=== PATIENT | male | born 1945 | race Caucasian/White ===

== ENCOUNTER → 2019-03-18 16:17 | Outpatient (CLI) | payer MEDICARE, SELFPAY ==
[2019-03-18 15:08] VITALS: BMI 24.7
[2019-03-18 17:10] LABS: Absolute Lymphocyte Count 1.72 X10^3/uL (0.83-4.51); Absolute Neutrophil Count 3.6 X10^3/uL (2.0-7.7); Basophil# 0.05 X10^3/uL; Basophil% 0.8 % (0-1); Eosinophil# 0.15 X10^3/uL; Eosinophils% 2.5 % (0-5); Hematocrit 46.1 % (40-54); Hemoglobin 15.2 g/dL (13.0-16.5); Lymphocyte # 1.72 X10^3/ul (4.0); Lymphocyte % 28.2 % (19-41); Mean Corpuscular Hgb 30.4 pg (27.0-32.0); Mean Corpuscular Volume 92.2 fL (80-94); Mean Platelet Vol. 8.5 fl (6.2-12.0); Monocyte# 0.52 X10^3/uL; Monocyte% 8.5 % (0-10); NRBC Flagged by Analyzer 0 % (0-5); Neutrophil # 3.62 X10^3/uL (2.7-7.7); Neutrophil % 59.2 % (47-70); Platelet Count 345 K/mm3 (150-450); RBC Distribution Width CV 13.2 % (11.6-14.6); RBC Distribution Width SD 45.2 fl (35.1-43.9); White Blood Count 6.1 K/mm3 (4.4-11.0)
[2019-03-18 17:51] LABS: Anion Gap 7 (5-15); BUN 7 mg/dL (7-18); BUN/Creat Ratio 9.2 RATIO (10-20); Chloride 101 mmol/L (98-107); Creatinine, Serum 0.76 mg/dL (0.70-1.30); EST Glomerular Filtration Rate 107 mL/min (>60); Est Glom Filt Rate - Afr Amer 129 mL/min (>60); Glucose 63 mg/dL (74-106); Potassium 3.5 mmol/L (3.5-5.1); Sodium Level 136 mmol/L (136-145); Thyroid Stim Hormone (TSH) 3.28 uIU/mL (0.358-3.74)
== END ==
PROVIDERS: Family Provider Internal Medicine; PCP Internal Medicine; Referring Provider Internal Medicine Cardiovascular Disease; Visit Provider Internal Medicine Cardiovascular Disease
DX: Z01.810 Encounter for preprocedural cardiovascular examination (principal); R06.00 Dyspnea, unspecified
CPT/HCPCS: 36415; 80048; 84443; 85025

== ENCOUNTER → 2019-03-26 06:03 | Outpatient (CLI) | payer MEDICARE, SELFPAY ==
[2019-03-18 15:08] VITALS: BMI 24.7
--- NOTE | 2019-03-26 06:07 | ECHOD_ITS ---
Reason For Study: CAD/ASHD Procedure This was a 2D Doppler, Color Flow transthoracic echocardiogram. Contrast injection was performed. Exam performed in department. Left Ventricle Normal LV size. Left ventricular systolic function is normal. The estimated ejection fraction is 60 %. Stage 1 diastolic dysfunction. No regional wall motion abnormalities noted. Right Ventricle Normal RV size. Normal systolic function. Atria Normal left atrium. Normal right atrium. Bubble contrast study negative for right to left interatrial shunt. Mitral Valve Systolic anterior motion of the mitral valve. Bileaflet diffuse mitral valve thickening. Tricuspid Valve Normal tricuspid valve. Aortic Valve Normal aortic valve. Mild (1+) aortic valve insufficiency. Pulmonic Valve Normal pulmonic valve. Great Vessels Normal aortic root. The pulmonary artery is normal size. Normal inferior vena cava. Pericardium/Pleural No pericardial effusion. Medication 22 gauge I.V. with prn adaptor inserted into left arm. Performed a rapid injection of agitated mix of 9 cc saline and 1cc air to assess for atrial septal defect. MMode/2D Measurements & Calculations LVIDd: 3.6 cm IVSd: 1.0 cm LA dimension: 3.1 cm LVIDs: 2.3 cm LVPWd: 1.1 cm RVDd: 2.9 cm FS: 37.1 % LAV(MOD-bp): 39.9 ml LA A4 area: 14.2 cm2 RA A4 area: 11.8 cm2 LAV(MOD-bp) Indexed: 25.9 ml/m2 LAV(MOD-sp2): 37.2 ml LAV(MOD-sp4): 36.1 ml Time Measurements MV dec time: 0.24 sec Doppler Measurements & Calculations MV E max didier: 107.8 cm/sec Lat Peak E' Didier: 6.3 cm/sec Med Peak E' Didier: 6.4 cm/sec MV A max didier: 108.4 cm/sec E/E' lat: 17.1 E/E' med: 16.9 MV E/A: 1.00 MV V2 max: 127.1 cm/sec MV P1/2t max didier: 127.1 cm/sec Ao V2 max: 115.4 cm/sec MV max P.5 mmHg MV P1/2t: 48.5 msec Ao max P.3 mmHg MV V2 mean: 60.0 cm/sec MV dec slope: 767.1 cm/sec2 Ao V2 mean: 68.1 cm/sec MV mean P.8 mmHg Ao mean P.2 mmHg MV V2 VTI: 42.7 cm MVA(P1/2t): 4.5 cm2 Ao V2 VTI: 27.0 cm AI max didier: 372.5 cm/sec LV V1 max: 99.2 cm/sec PA V2 max: 90.6 cm/sec AI max P.5 mmHg LV V1 max P.9 mmHg AI dec slope: 193.6 cm/sec2 LV V1 mean P.6 mmHg AI P1/2t: 563.5 msec LV V1 mean: 56.2 cm/sec LV V1 VTI: 22.2 cm Interpretation Summary Normal LV size. Left ventricular systolic function is normal. The estimated ejection fraction is 60 %. Stage 1 diastolic dysfunction. Bubble contrast study negative for right to left interatrial shunt. The global longitudinal strain = -21.4 % (normal). Ordering Physician: Jeremias Howard Referring Physician: Pedro Jaime M.D. Performed By: Jeromy Washington RCS
--- NOTE | 2019-03-26 08:45 | STRESSREP ---
Stress Test Report Pharmacologic myocardial perfusion stress test. 74-year-old man with a history of abnormal EKG preoperative evaluation. Medications Ventolin Motrin trazodone. Stress protocol. Resting EKG demonstrates sinus bradycardia with a rate of 53 bpm normal intervals are noted resting blood pressures 126/60 mmHg. 0.4 mg of regadenoson was infused per usual protocol continuous EKG monitoring was performed. The maximum heart rate was 73 bpm which was 50% of maximum predicted heart rate and maximum workload was 1 metabolic equivalent. At rest there were no ST or T wave changes noted suggest abnormal flow reserve at peak infusion nonspecific ST-T wave changes were noted. The resting blood pressure 120/60 meters of mercury and remained the same. Myocardial perfusion protocol. 11.4 mCi of technetium 99m sestamibi was injected stress images were obtained stress and rest images were reconstructed and compared in the short axis vertical and horizontal long axis. At peak infusion 32.7 mCi of technetium 99m sestamibi was injected. Perfusion SPECT analysis: Review of the stress images demonstrate normal uptake of tracer noted in all areas of the myocardium there is some inferior wall attenuation and bowel attenuation noted. The septum anterior wall lateral wall appeared to be well perfused. No obvious areas of reversibility are noted suggest ischemia Gated SPECT analysis: The gated ejection fraction is 83%. Conclusion: Normal pharmacologic myocardial perfusion stress test. 2. 2.preserved ejection fraction.
== END ==
PROVIDERS: Family Provider Internal Medicine; PCP Internal Medicine; Referring Provider Internal Medicine Cardiovascular Disease; Visit Provider Internal Medicine Cardiovascular Disease
DX: Z01.810 Encounter for preprocedural cardiovascular examination (principal); I25.10 Atherosclerotic heart disease of native coronary artery without angina pectoris
CPT/HCPCS: 78452; 93017; 93306; A9500; A4216; J2785

== ENCOUNTER 2019-04-20 12:01 | Day surgery (SDC) | payer MEDICARE, SELFPAY ==
[2019-03-18 15:08] VITALS: BMI 24.7
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
[2019-04-20] VITALS (8 sets, daily range): BP systolic 127–140; BP diastolic 47–62; PULSE 44–53; RESP 17–18; TEMP 36.1–37.1; O2SAT 97–100; BMI 19.6
[2019-04-20] MEDS: Lactated Ringers 1,000 ML 75 ML IV (12:46)
--- NOTE | 2019-04-20 14:15 | MASS_PTH ---
PATIENT: LORI DUMONT LOC[place] [facility] [place][id number] AGE/SX: 74/M ROOM: RE04/20/[address]: Dr. Li Olivo MD : 1945 BED: DIS: 04/20/2019 SPEC #: [id number] RECD: 04/20/19 16:01 STATUS: SHERYL JOON #: [id number] JENIFFER: 04/20/19 14:[address]: Li Olivo DEPT: SURGICAL PATHOLOGY RECD BY: Rahat Loaiza ENTERED: 04/21/19 14:11 SP TYPE: Mass OTHR DR: Dr. Pedro Jaime MD Tissues: A - Back, NOS B - Scalp, NOS Procedures: Surgery Specimen Level IV HEADER OPERATION: Excision mass back, excision cyst scalp PRE-OP DIAGNOSIS: Scalp subcutaneous mass, back subcutaneous mass TISSUE SUBMITTED: A. Back mass, B. Scalp cyst MICROSCOPIC DIAGNOSIS A. Back mass, excision: Mature adipose tissue, consistent with lipoma. B. Scalp cyst, biopsy: Trichilemmal cyst. BRIAN:keegan 04/22/19 MICROSCOPIC DESCRIPTION Slides are reviewed. GROSS DESCRIPTION A. Received in fixative is one container labeled with the patient's name and designated back mass. The specimen consists of a piece of yellow adipose tissue measuring 3.5 x 4 x 1 cm. Sections reveal yellow adipose cut surfaces without area of hemorrhage, necrosis or cystic degeneration. Fork [employer] sections are submitted in 2 cassettes. B. Received in fixative is one container labeled with the patient's name and designated scalp cyst. The specimen consists of bilobed cystic indurated nodule measuring 4.5 x 3 x 2 cm. The cyst appears to be partially ruptured. It is filled with yellowish sebum-like material. Also, focal areas of calcifications are also noted. Fork [employer] Driver sections are submitted in 2 cassettes. /BRIAN:keegan 04/21/19 TC: 5 CPT: 23941 x2
[2019-04-20] MEDS: Cefazolin 2 GM in 0.9% Normal Saline 100 ML IV (14:44)
--- NOTE | 2019-04-20 15:33 | OP.PCM_ITS ---
Report of Operation Date of Procedure: 04/20/19 Pre-Operative Diagnosis: subcutaneous scalp mass, back mass, chronic irritation from these sites Post-Operative Diagnosis: same Surgery/Procedure Performed:: excision of subcutaneous scalp mass - probable pilar cyst. excision of subfascial lipoma of upper back - 2 cm Description of Surgical Findings:: subcutaneous scalp mass - probable pilar cyst x 2 with one opened subfascial back lipoma - 2 cm in size Type of Anesthesia:: Local MAC Anesthesiologist: Dulce Maria Felix Specimen's removed: subcutaneous scalp mass 4.5 cm, back mass (subfascial) - lipoma - 4 cm Estimated Blood Loss (mL): < 10 ml Fluids Replaced: 800 cc RL Description of Procedure: After informed consent was given, the patient was brought to the Operating Room. Appropriate time out protocol was followed. He was then placed in the supine position. IV conscious sedation was then administered by the anesthesia provider. The patient was then placed in the lateral decubitus position. The patient?s scalp and upper back were then prepped with a surgical skin preparation and sterile surgical drapes were placed. The scalp lesion was approached first. The skin and subcutaneous tissues in and around the lesion were then infiltrated with 1% xylocaine with epinephrine. A s kin incision was then made with a 15 blade scalpel overlying the lesion. The incision was carried down through to the subcutaneous tissues. Any hemorrhage was controlled with electrocautery. The lesion was palpated out and then from the surrounding tissues using blunt and sharp dissection. Any bleeding was controlled by electrocoagulation. The lesion was then removed from the cavity and forwarded to pathology for analysis. It was 4.5 cm in maximum dimension. It was consistent with a pilar cyst. The cavity was carefully examined, no further suspicious lesions were noted. Hemostasis was achieved with electrocautery. There was redundant scalp skin due to the size of the lesion. This redundant skin was excised. The skin edges were then reapproximated with interrupted 3-0 nylon suture. Dermibond was placed over the incision. The back lesion was approached next. The skin and subcutaneous tissues in and around the lesion were then infiltrated with 1% xylocaine with epinephrine. A skin incision was then made with a 15 blade scalpel overlying the lesion. The incision was carried down through to the subcutaneous tissues. Any hemorrhage was controlled with electrocautery. The lesion was palpated out. It was noted to be deep to the fascia. The fascia was incised. The lesion was lipomatous in nature and from the surrounding tissues using blunt and sharp dissection. Any bleeding was controlled by electrocoagulation. The lesion was then removed from the cavity. It was 4 cm in maximum dimension. It was forwarded to pathology for analysis. The cavity was carefully examined, no further suspicious lesions were noted. Hemostasis was achieved with electrocautery. The fascia was reapproximated with vicryl suture in a simple fashion. The dermis was reapproximated using running 3-0 vicryl suture. The skin incision was closed using 4-0 monocryl in a running subcuticular fashion. Steristrips and Cavilon was used to reinforce the skin closure of the back lesion and a proper sterile dressing was applied. The patient tolerated the procedure well and was brought to the Recovery Room in stable condition. - Complications none noted - Admit VTE Documentation VTE Present on Admission: Yes VTE Mechan Device Prophylaxis: SCD's
--- NOTE | 2019-04-20 15:42 | DCINST_ITS ---
Discharge Diet: No Restrictions Discharge Activity: Return to Normal Activity, May not drive while taking narcotic pain medications. Call your doctor if your incision/area has: Continuous Slow Oozing, Foul Smelling Discharge Call your doctor if you observe: Fever of 101 or Higher Additional Dressing/Incision Instructions:: Leave dressings in place. May get wet in shower. Do not soak - no tub baths/swimming Allergies/Adverse Reactions: Allergies No Known Allergies Allergy (Verified 04/20/19 12:24) Medications to take at Discharge Albuterol Inhaler [Ventolin Hfa (SP)] 1 puff INHALATION Q4H PRN PRN 11/25/15 Budesonide/Formoterol 80-4.5 [Symbicort 80-4.5 Mcg Inhaler] 2 puff INHALATION BID 11/25/15 Ibuprofen [Motrin] 600 mg PO Q6H PRN PRN 11/25/15 RX: Duloxetine HCl 30 mg PO BID 11/25/15 hydroxyzine HCl 25 mg tablet 25 mg PO PRN PRN #30 tab 03/17/19 omeprazole 20 mg capsule,delayed release 20 mg PO DAILY PRN #30 cap 03/17/19 sumatriptan 50 mg tablet 50 mg PO PRN PRN #12 tab 03/17/19 tizanidine 4 mg tablet 4 mg PO PRN PRN #30 tab 03/17/19 trazodone 100 mg tablet 100 mg PO QHS #30 tab 03/17/19 nitroglycerin 0.4 mg sublingual tablet 0.4 mg SUBLINGUAL Q5-15M PRN #25 tab 03/18/19 Hydrocodone Bitart/Apap 5-325 [[place] 5MG-325MG] 1 tab PO Q12H PRN PRN 2 Days #4 tab 04/20/19 The following prescriptions were given: Hydrocodone Bitart/Apap 5-325 [[place] 5MG-325MG] 1 tab PO Q12H PRN PRN 2 Days #4 tab PRN Reason: Pain Prescription Printed Primary Care Physician: Pedro Jaime MD [Primary Care Provider] - Test Results: Test results from this visit will be discussed in further detail at your follow- up appointment, if applicable. Please Follow Up With: Li Olivo MD - call When: to be seen in about 2 weeks, please call for date and time, thank you
== END 2019-04-20 16:51 | disposition home or self-care (01) ==
LOC: SDC 12:02 → AC 12:04
PROVIDERS: Family Provider Internal Medicine; PCP Internal Medicine; Referring Provider Surgery; Visit Provider Surgery
PROC: (CPT 11402; principal; 2019-04-20 14:00)
DX: L72.12 Trichodermal cyst (principal); D17.1 Benign lipomatous neoplasm of skin and subcutaneous tissue of trunk; R52 Pain, unspecified; C34.32 Malignant neoplasm of lower lobe, left bronchus or lung; J44.9 Chronic obstructive pulmonary disease, unspecified; K21.9 Gastro-esophageal reflux disease without esophagitis; G43.909 Migraine, unspecified, not intractable, without status migrainosus; F17.210 Nicotine dependence, cigarettes, uncomplicated; Z85.46 Personal history of malignant neoplasm of prostate; Z79.899 Other long term (current) drug therapy
CPT/HCPCS: 00300; 11402; 21012; 88305; J7050; J7120

== ENCOUNTER → 2021-05-18 13:58 | Outpatient (CLI) | payer MEDICARE, MEDICAID, SELFPAY ==
--- NOTE | 2021-05-18 14:02 | CT_ITS ---
STUDY: CT CHEST WITHOUT CONTRAST REASON FOR EXAM: Male, 76 years old. LUNG NODULES RADIATION DOSAGE (If Supplied By Facility): CTDIvol = ( 6.43 ) mGy, DLP = ( 234.49 ) mGycm TECHNIQUE: Transaxial imaging was performed without the administration of intravenous contrast material. Multiplanar coronal and sagittal images were reformatted. Individualized dose optimization techniques were used for this CT. COMPARISON: Comparison is made with prior examination dated 01/29/2017. FINDINGS: Tiny calcified nodules seen in both lobes of the thyroid gland. Scattered calcified granulomas in both lungs. Diffuse hyperinflation with the centrilobular emphysema. There now is evidence of a 3.8 cm x 2 cm heterogeneous nodule in the peripheral aspect of the right lower lobe. Focal dense calcifications are seen along the pleural surface. There is evidence of spiculation as well as bronchiectasis anteriorly. This has increased in size as compared to prior study. There are calcifications of the coronary arteries. There are multiple small lymph nodes within the mediastinum, which are normal in size and morphology most compatible with reactive lymph hyperplasia. Normal hilar regions. Normal unenhanced pulmonary arteries. There is atherosclerotic calcification of the aortic arch with tortuosity and elongation of the aortic arch and descending thoracic aorta. There are multi-level degenerative changes of the thoracic spine. Stable small cysts in the left lobe of the liver. CT/Chest without Contrast IMPRESSION: The previously seen nodular density in the peripheral lateral aspect of the left lower lobe has increased in size. It presently measures 3.8 size by 2 cm. Electronically Signed: Miguel Trejo MD at 14:40 EDT , Service support ,
== END ==
PROVIDERS: PCP Internal Medicine; Referring Provider Nurse Practitioner; Visit Provider Nurse Practitioner
DX: R91.8 Other nonspecific abnormal finding of lung field (principal)
CPT/HCPCS: 71250

== ENCOUNTER 2022-02-28 22:08 | Emergency (ER) | payer MEDICARE, MEDICAID, SELFPAY ==
[2022-02-28 22:09] VITALS: BP 148/71; PULSE 93; RESP 34; TEMP 36.2; O2SAT 98; BMI 18.1
--- NOTE | 2022-02-28 22:41 | CT_ITS ---
ACR Level 3 findings have been noted. An addendum which confirms receipt of the report will follow. STUDY: CTA CHEST REASON FOR EXAM: Male, 76 years old. dyspnea -- hypoxia, history of lung nodule RADIATION DOSAGE (If Supplied By Facility): CTDIvol = ( 4.27 ) mGy, DLP = ( 146.20 ) mGycm TECHNIQUE: The examination was performed with the intravenous administration of IV 100mL Isovue-370. Post-processing of the angiographic images was performed, with multiplanar reformation and 3D reconstruction. Individualized dose optimization techniques were used for this CT. COMPARISON: Nonenhanced chest CT of 05/18/2021. FINDINGS: Normal enhancement of the main pulmonary artery and right and left pulmonary arteries. Normal enhancement of the bilateral peripheral pulmonary arteries. There is no demonstrated pulmonary embolism. Thoracic aorta is calcific and normal caliber. No intimal flap or intimal calcification displacement. There is no demonstrated aortic dissection. Extensive coronary artery calcification. No pericardial effusion. Normal mediastinum. Normal hilar regions. No hilar or mediastinal adenopathy. Numerous calcified granulomas indicating remote granulomatous infection. Pulmonary emphysema. Peribronchial cuffing indicating bronchial wall inflammation/bronchitis. Within the left upper lobe is a new 4 by 11 mm noncalcified elongated nodular opacity with slightly spiculated margins, with a spicule radiating to the superior pleural surface. There is a chronic stable wedge-shaped focus of pleural parenchymal scarring along the posterior lateral aspect of the left lower lobe, with a central metallic density and calcifications within this area of scarring, and with an overlying old left rib fracture. No pleural effusion. No acute osseous abnormality. Visualized portions of the liver, gallbladder, pancreas, spleen and adrenal glands are unremarkable. Visualized kidneys demonstrate nonspecific perirenal stranding. There is severe stenosis at the origin of the left renal artery by calcified plaque. CT/CTA Chest W/WO Contrast IMPRESSION: No pulmonary embolism or thoracic aortic dissection identified. Findings of remote granulomatous infection, pulmonary emphysema and bronchitis. Chronic pleural-parenchymal scarring within the left lower lobe. Interval development of a 4 x 11 mm elongated noncalcified nodular opacity with slightly spiculated margins in the left upper lobe, possibly parenchymal scar but this could also represent a small developing pulmonary neoplasm. Correlation with PET scanning may be of benefit. Electronically Signed: Joel Hernandez MD at 0:41 EDT ,
--- NOTE | 2022-02-28 22:41 | EKG12_ITS ---
Test Reason : sob Blood Pressure : / mmHG Vent. Rate : 085 BPM Atrial Rate : 085 BPM P-R Int : 144 ms QRS Dur : 088 ms QT Int : 390 ms P-R-T Axes : 077 -29 082 degrees QTc Int : 464 ms Normal sinus rhythm Septal infarct , age undetermined Abnormal ECG Confirmed by ASHOK FLOWERS, LE ([id number]), photo editor MP ARELLANO ([id number]) on 03/03/2022 9:32:38 AM Referred By: Lisbeth Suarez Confirmed By:LE PULIOD MD
[2022-02-28 22:59] LABS: Absolute Lymphocyte Count 1.25 X10^3/uL (0.83-4.51); Absolute Neutrophil Count 4.6 X10^3/uL (2.0-7.7); Basophil# 0.06 X10^3/uL; Basophil% 0.8 % (0-1); Eosinophil# 0.32 X10^3/uL; Eosinophils% 4.5 % (0-5); Hematocrit 42.5 % (40-54); Hemoglobin 14.4 g/dL (13.0-16.5); Lymphocyte # 1.25 X10^3/ul (0.83-4.51); Lymphocyte % 17.6 % (19-41); Mean Corp Hgb Conc 33.9 g/dL (32-36); Mean Corpuscular Hgb 30.1 pg (27.0-32.0); Mean Corpuscular Volume 88.7 fL (80-94); Mean Platelet Vol. 8.5 fl (6.2-12.0); Monocyte# 0.85 X10^3/uL; NRBC Flagged by Analyzer 0 % (0-5); Neutrophil # 4.55 X10^3/uL (2.7-7.7); Neutrophil % 64.1 % (47-70); Platelet Count 425 K/mm3 (150-450); RBC Distribution Width SD 42.7 fl (35.1-43.9); Red Blood Count 4.79 M/mm3 (4.6-6.2); White Blood Count 7.1 K/mm3 (4.4-11.0)
[2022-02-28 23:06] LABS: International Normalized Ratio 0.9; Prothrombin Time (Protime)PT. 12.2 SECONDS (11.7-14.9)
[2022-02-28 23:07] LABS: Partial Thromboplast Time 31.8 Seconds (24.1-36.2)
--- NOTE | 2022-02-28 23:13 | EDS_ITS ---
HPI History of Present Illness Chief Complaint: Shortness of Breath Informant: patient Narrative Narrative: Patient brought in by EMS from home worsening dyspnea. History of COPD no home oxygen. Patient reports no cough. He states progressive dyspnea for the past year worsening over 2 months and again that is worse over the past 2 days. Denies fevers. He does report history of a lung nodule he states 2 years ago had radiation. Currently does not follow with a bias cutting machine operator or an oncologist. He is unclear if he is diagnosed with cancer. He is reporting exertional dyspnea: He walked to his bathroom. He lives with his significant other. From records had a CT scan in April of last year increasing size left lower lobe nodule to 3.8 cm. He has not followed up with this. States has upcoming pulmonology appointment. Continue tobacco history. Denies leg swelling or cramping. Denies any cardiac history. He is not vaccinated for COVID. Denies COVID infections in the past. Denies headache chest pains or vomiting or diarrhea. Denies any loss of taste or smell. Status post DuoNeb treatment by EMS. 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 [facility] Medical History (Updated 03/01/22 @ 01:[address] Terence Horne DO) Abnormal electrocardiogram Alcohol abuse Chronic pain COPD (chronic obstructive pulmonary disease) CVA (cerebral vascular accident) Depression GERD (gastroesophageal reflux disease) Lung cancer Nicotine dependence Prostate cancer Secondary pulmonary arterial hypertension Transient ischemic attack Home Medications albuterol sulfate 90 mcg/actuation aerosol inhaler 1 puff inhalation Q4H PRN PRN Asthma 11/25/15 [History Last Taken 04/20/19 11:30] budesonide-formoterol HFA 80 mcg-4.5 mcg/actuation aerosol inhaler 2 puff inhalation BID 11/25/15 [History Last Taken Unknown] ibuprofen 600 mg tablet 600 mg PO Q6H PRN PRN Pain 11/25/15 [History Last Taken Unknown] nitroglycerin 0.4 mg sublingual tablet 0.4 mg sublingual Q5-15M PRN chest pain #25 tabs 03/18/19 [History Last Taken Unknown] ipratropium bromide 17 mcg/actuation HFA aerosol inhaler 17 mcg inhalation DAILY 03/24/20 [History Last Taken Unknown] metoprolol succinate 25 mg tablet,extended release 24 hr (Toprol XL) 25 mg PO DAILY #60 tabs 03/24/20 [Rx Last Taken Unknown] zolpidem 5 mg tablet 5 mg PO QHS PRN Insomnia 02/28/22 [History Last Taken Unknown] prednisone 20 mg tablet 60 mg PO DAILY #12 tabs 03/01/22 [Rx Last Taken Unknown] Allergy/AdvReac Type Severity Reaction Status Date / Time No Known Allergies Allergy Verified 02/28/22 22:09 Family History Other Cancer Surgical History femoral artery repair History of bronchoscopy History of tonsillectomy Status post tendon repair Social History (Updated 03/24/20 @ 15:[address] Jeremias Howard MD) Smoking Status: Current every day smoker tobacco type: cigarettes alcohol intake: current alcohol intake frequency: 3 or more drinks per day Alcohol type: beer ROS ROS ED Constitutional Constitutional ED: Denies chills, fever(s) or sweats Eyes Eyes: Denies change in vision ENT ENT ED: Denies dysphagia or sore throat Cardiovascular Cardiovascular: Denies chest pain, leg edema, palpitations or racing heartbeat Respiratory/Chest Respiratory/Chest: Reports dyspnea and dyspnea on exertion; Denies cough Gastrointestinal Gastrointestinal: Denies abdominal pain, diarrhea, nausea or vomiting Genitourinary Genitourinary ED: Denies dysuria, hematuria or urinary frequency Musculoskeletal Musculoskeletal: Denies back pain, extremity pain or neck pain Integumentary Denies rash or wounds Neurologic Neurologic: Denies headache(s), paresthesias or weakness EXAM Physical Exam Const Vital Signs: 02/28/22 22:09 02/28/22 22:16 02/28/22 22:45 Temperature 97.2 F L Temperature Source Temporal Pulse Rate 93 Respiratory Rate 34 H Respiratory Effort Short of Breath Respiratory Pattern Tachypnea Blood Pressure 148/71 H Blood Pressure Mean 96 Pulse Ox 98 Oxygen Delivery Method Nasal Cannula Nasal Cannula Oxygen Flow Rate (L/min) 2 2 03/01/22 00:00 Temperature 98.9 F Temperature Source Temporal Pulse Rate 83 Respiratory Rate 20 H Respiratory Effort Respiratory Pattern Blood Pressure 134/78 H Blood Pressure Mean 96 Pulse Ox 95 Oxygen Delivery Method Room Air Oxygen Flow Rate (L/min) Positive cachectic Constitutional Narrative: Speaking in short sentences on 2 L nasal cannula. General Appearance ED: cachectic and NAD Nutritional Appearance: cachectic HEENT Reports moist mucous membranes normocephalic and atraumatic Eyes PERRL, EOMs intact bilaterally and conjunctivae normal General Eye ED: Yes normal appearance of both eyes Neck no lymphadenopathy and supple General: Negative for tenderness Chest Wall Chest: Negative for tenderness Resp Resp Narrative: Diminished breath sounds at the bases. Effort and Inspection: symmetric chest movement; Negative for respiratory distress Cardio regular rate, regular rhythm and no murmurs Peripheral Pulses: pulses 2+ throughout GI normal to inspection, nondistended, normoactive bowel sounds and non-tender Palpation: Negative for guarding or rebound tenderness present Back/Spine no CVA tenderness and no thoracic nor lumbar tenderness Extremity normal to inspection General Extremety ED: Negative for edema or tenderness General Extremity: Negative for edema Neuro oriented x3 and no sensory deficits noted Sensorium / Orientation: awake and alert Skin no rashes or lesions noted and no wounds MDM MDM MDM Narrative Medical decision making narrative: Patient brought in on 2 L at 90% per EMS he was 93% on room air. Tachypneic at 34. He is status post aerosol treatment with improving symptoms. He denies any cough symptoms. With his potential lung cancer history worsening dyspnea, moderate high risk concerns for PE. Work-up initiated. He was given steroids due to reported wheezing. Labs White count 7.1 hemoglobin 14. Creatinine 0.81. Troponin negative at 17. EKG sinus rhythm. CT angiogram negative for PE, does report concerns for developing nodule left upper lobe 4 x 11 mm. Discussed this with the patient. He was ambulated on room air maintaining 93 to 95%. He states clinically is feeling better. Given burst steroids for additional 4 days. No antibiotics or any cough symptoms. Return precautions. He is given follow-up with pulmonary as an outpatient. All questions answered. Lab Data Attestation: I reviewed the patient's lab results. Labs: Laboratory Results - last 24 hr 02/28/22 02/28/22 02/28/22 22:16 22:16 22:16 WBC 7.1 RBC 4.79 Hgb 14.4 Hct 42.5 MCV 88.7 MCH 30.1 MCHC 33.9 RDW Std Deviation 42.7 RDW Coeff of Esther 13.0 Plt Count 425 MPV 8.5 Immature Gran % (Auto) 1.000 H Neut % (Auto) 64.1 Lymph % (Auto) 17.6 L [place] % (Auto) 12.0 H Eos % (Auto) 4.5 Baso % (Auto) 0.8 Absolute Neuts (auto) 4.6 Absolute Lymphs (auto) 1.25 Nucleated RBC % 0 PT 12.2 INR 0.9 APTT 31.8 Sodium 136 Potassium 3.9 Chloride 104 Carbon Dioxide 28.0 Anion Gap 4 L BUN 6 L Creatinine 0.81 Estim Creat Clear Calc 56.56 Est GFR (MDRD) Af Amer 118 Est GFR (MDRD) Non-Af 98 BUN/Creatinine Ratio 7.4 L Glucose 80 Calcium 8.4 L Total Bilirubin 0.30 AST 20 ALT 14 L Alkaline Phosphatase 125 H Troponin I High Sens 17 Total Protein 6.9 Albumin 3.2 Globulin 3.7 Albumin/Globulin Ratio 0.9 Radiography Diagnostic Testing: Clinical Impression(s) from Imaging Studies Chest CTA 02/28/22 22:41 IMPRESSION: No pulmonary embolism or thoracic aortic dissection identified. Findings of remote granulomatous infection, pulmonary emphysema and bronchitis. Chronic pleural-parenchymal scarring within the left lower lobe. Interval development of a 4 x 11 mm elongated noncalcified nodular opacity with slightly spiculated margins in the left upper lobe, possibly parenchymal scar but this could also represent a small developing pulmonary neoplasm. Correlation with PET scanning may be of benefit. Electronically Signed: Joel Hernandez MD at 0:41 EDT , ADDENDUM: 03/01/22 0108 IMPRESSION: No pulmonary embolism or thoracic aortic dissection identified. Findings of remote granulomatous infection, pulmonary emphysema and bronchitis. Chronic pleural-parenchymal scarring within the left lower lobe. Interval development of a 4 x 11 mm elongated noncalcified nodular opacity with slightly spiculated margins in the left upper lobe, possibly parenchymal scar but this could also represent a small developing pulmonary neoplasm. Correlation with PET scanning may be of benefit. N.B. : Dr Terence Horne MD, confirmed on 03/01/2022 01:01:30 (ET) that the healthcare facility has received the radiology report. Electronically Signed: Joel Hernandez MD at 0:41 EDT , EKG Initial EKG: Attestation: I personally reviewed and interpreted this EKG as follows: Comments: Sinus rate of [address] changes isolated T wave inversion in aVL, nonspecific. Discharge Plan Triage Chief Complaint: Shortness of Breath ED Provider: Terence Horne Dx/Rx/DC Orders Clinical Impression: COPD (chronic obstructive pulmonary disease), Pulmonary nodule, left, Tobacco dependence Instructions: Chronic Lung Disease ..., ED Pulmonary Nodule, Solitary Prescriptions: New prednisone 20 MG tablet 60 mg PO DAILY Qty: 12 0RF No Action nitroglycerin 0.4 mg tablet, sublingual 0.4 mg SUBLINGUAL Q5-15M PRN (Reason: chest pain) Qty: 25 Label Comments: DISSOLVE 1 TABLET UNDER THE TONGUE NEEDED FOR CHEST PAIN- MAY REPEAT EVERY 5 MINUTES IF NEEDED ( MAX 3 DOSES.- IF NO RELIEF CALL 911) ipratropium bromide 17 mcg/actuation HFA aerosol inhaler 17 mcg INHALATION DAILY Label Comments: Inhale 2 Puffs as instructed four times daily as needed. metoprolol succinate [Toprol XL] 25 mg tablet extended release 24 hr 25 mg PO DAILY Qty: 60 0RF ibuprofen 600 MG tablet 600 mg PO Q6H PRN PRN (Reason: Pain) albuterol sulfate 1 INHALER inhaler 1 puff inhalation Q4H PRN PRN (Reason: Asthma) budesonide-formoterol 1 INHALER inhaler 2 puff inhalation BID zolpidem 5 mg Tablet 5 mg PO QHS PRN (Reason: Insomnia) Primary Care Provider: Pedro Jaime Referrals: Crispin Tao MD [STAFF PHYSICIAN] - 1 Week Pedro Jaime MD [Primary Care Provider] - Activity Restrictions/Additional Instructions: CT scan negative for PE. Interval development of 4 x 11 mm left upper lobe nodular density. Follow-up with pulmonology as an outpatient. Take steroid as prescribed. Return if any worsening symptoms. Disposition Disposition: Home, Self Care
[2022-02-28 23:18] LABS: ALB/GLOB Ratio 0.9 RATIO (0.9-2.4); AST(SGOT) 20 U/L (15-37); Alanine Aminotransfer ALT/SGPT 14 U/L (16-61); Albumin, Serum 3.2 g/dL (3.2-5.0); Alkaline Phosphatase 125 U/L (45-117); Anion Gap 4 (5-15); BUN 6 mg/dL (7-18); BUN/Creat Ratio 7.4 RATIO (10-20); Calcium,Total 8.4 mg/dL (8.5-10.1); Chloride 104 mmol/L (98-107); Creatinine, Serum 0.81 mg/dL (0.70-1.30); EST Glomerular Filtration Rate 98 mL/min (>60); Est Glom Filt Rate - Afr Amer 118 mL/min (>60); Estimated Creatinine Clearance 56.56 ml/min; Globulin 3.7 g/dL (2.2-4.2); Glucose 80 mg/dL (74-106); Potassium 3.9 mmol/L (3.5-5.1); Protein, Total 6.9 g/dL (6.4-8.2); Sodium Level 136 mmol/L (136-145); Troponin-I HS (w/2H Reflex) 17 pg/mL (3.0-78.0)
[2022-02-28] MEDS: MethylPREDNISolone 125 MG/2 ML Vial IV (23:25)
[2022-03-01] VITALS: BP 134/78; PULSE 83; RESP 20; TEMP 37.2; O2SAT 95
[2022-03-01 00:53] LABS: Reflex Troponin-HS? (from REC) Y
[2022-03-01 01:00] VITALS: O2SAT 94
[2022-03-01 01:21] VITALS: BP 123/66; PULSE 82; RESP 18; O2SAT 94
== END 2022-03-01 01:21 | disposition home or self-care (01) ==
PROVIDERS: Emergency Provider Emergency Medicine; PCP Internal Medicine; Visit Provider Emergency Medicine
DX: J44.9 Chronic obstructive pulmonary disease, unspecified (principal); R91.1 Solitary pulmonary nodule; I10 Essential (primary) hypertension; F17.210 Nicotine dependence, cigarettes, uncomplicated; Z79.899 Other long term (current) drug therapy; Z86.73 Personal history of transient ischemic attack (TIA), and cerebral infarction without residual deficits
CPT/HCPCS: 71275; 80053; 84484; 85025; 85610; 85730; 87811; 93005; 96374; 99285; Q9967; A4216

== ENCOUNTER 2022-04-03 22:46 | Emergency (ER) | payer MEDICARE, MEDICAID, SELFPAY ==
[2022-04-03 22:49] VITALS: BP 158/77; PULSE 103; RESP 22; TEMP 35.7; O2SAT 97; BMI 15.5
[2022-04-03 22:54] VITALS: BP 158/77; PULSE 104; RESP 22; TEMP 35.7; O2SAT 97
--- NOTE | 2022-04-03 23:09 | EKG12_ITS ---
Test Reason : LE Blood Pressure : / mmHG Vent. Rate : 100 BPM Atrial Rate : 100 BPM P-R Int : 132 ms QRS Dur : 086 ms QT Int : 360 ms P-R-T Axes : 077 -31 091 degrees QTc Int : 464 ms Normal sinus rhythm Left axis deviation Septal infarct , age undetermined Abnormal ECG Confirmed by ASHOK FLOWERS, LE ([id number]), editor map MP ARELLANO ([id number]) on 04/06/2022 2:01:56 PM Referred By: Confirmed By:LE PULIDO MD
--- NOTE | 2022-04-03 23:10 | EDS_ITS ---
HPI History of Present Illness Chief Complaint: Lower Extremity Injury Informant: patient and EMS Narrative Narrative: 77-year-old presenting to the emergency department with left foot and leg pain. Patient states that he was lying in bed about 2 hours ago watching TV when he had sudden onset of pain. He notes that his left foot is cold and he cannot feel it. He states that that sensation extends up onto the lower leg. He notes that the last time he was in the emergency department was in February and he was told that he had cancer and feels long but has not yet had a chance to schedule an appointment. He notes that he does not wear home oxygen but has a history of COPD. He denies any known heart issues. [facility] Medical History (Updated 04/03/22 @ 23:[address] Braulio Peck DO) Abnormal electrocardiogram Alcohol abuse Chronic pain COPD (chronic obstructive pulmonary disease) CVA (cerebral vascular accident) Depression GERD (gastroesophageal reflux disease) Lung cancer Nicotine dependence Prostate cancer Secondary pulmonary arterial hypertension Transient ischemic attack Home Medications albuterol sulfate 90 mcg/actuation aerosol inhaler 1 puff inhalation Q4H PRN PRN Asthma 11/25/15 [History Last Taken 04/20/19 11:30] budesonide-formoterol HFA 80 mcg-4.5 mcg/actuation aerosol inhaler 2 puff inhalation BID 11/25/15 [History Last Taken Unknown] ibuprofen 600 mg tablet 600 mg PO Q6H PRN PRN Pain 11/25/15 [History Last Taken Unknown] nitroglycerin 0.4 mg sublingual tablet 0.4 mg sublingual Q5-15M PRN chest pain #25 tabs 03/18/19 [History Last Taken Unknown] ipratropium bromide 17 mcg/actuation HFA aerosol inhaler 17 mcg inhalation DAILY 03/24/20 [History Last Taken Unknown] zolpidem 5 mg tablet 5 mg PO QHS PRN Insomnia 02/28/22 [History Last Taken Unknown] Allergy/AdvReac Type Severity Reaction Status Date / Time No Known Allergies Allergy Verified 02/28/22 22:09 Family History Other Cancer Surgical History femoral artery repair History of bronchoscopy History of tonsillectomy Status post tendon repair Social History Smoking Status: Current every day smoker tobacco type: cigarettes alcohol intake: current alcohol intake frequency: 3 or more drinks per day Alcohol type: beer ROS ROS ED Constitutional Constitutional ED: Denies chills or weight loss Eyes Eyes: Denies change in vision or diplopia ENT ENT ED: Denies ear pain, rhinorrhea or sore throat Cardiovascular Cardiovascular: Denies chest pain, orthopnea, palpitations or racing heartbeat Respiratory/Chest Respiratory/Chest: Denies cough, dyspnea or orthopnea Gastrointestinal Gastrointestinal: Denies abdominal pain, diarrhea, nausea or vomiting Genitourinary Genitourinary ED: Denies dysuria, hematuria or urinary frequency Musculoskeletal Musculoskeletal: Reports other Details: See history of present illness ; Denies arthralgias or myalgias Integumentary Denies abscess or rash Neurologic Neurologic: Denies headache(s) or weakness Psychiatric Psychiatric: Denies anxiety, depression, suicidal ideation or suicidal thoughts Endocrine Endocrinology: Denies polydipsia, polyphagia or polyuria Allergic/Immunologic Allergic/Immunologic ED: Denies mouth swelling, tongue swelling or urticaria EXAM Physical Exam Const Vital Signs: 04/03/22 22:49 04/03/22 22:54 04/03/22 23:38 Temperature 96.3 F L 96.3 F L Temperature Source Temporal Temporal Pulse Rate 103 H 104 H 100 Respiratory Rate 22 H 22 H 22 H Blood Pressure 158/77 H 158/77 H 184/86 H Blood Pressure Mean 104 104 118 Pulse Ox 97 97 95 Oxygen Delivery Method Nasal Cannula Nasal Cannula Nasal Cannula Oxygen Flow Rate (L/min) 2 2 2 Positive well nourished and well developed General Appearance ED: well developed HEENT Reports normocephalic, head/scalp atraumatic and moist mucous membranes Eyes PERRL and EOMs intact bilaterally Neck no lymphadenopathy, supple and no JVD Resp normal respiratory effort and clear to auscultation bilaterally Cardio regular rate, regular rhythm and no murmurs GI normal to inspection, nondistended, normoactive bowel sounds and non-tender Palpation: soft Back/Spine no CVA tenderness and normal ROM Extremity Extremity Narrative: Left lower leg and foot is pale cold. I do not feel a dorsalis pedis or posterior tibial pulse. I am not able to Doppler 1 either. The patient's capillary refill is negligible. There is no swelling. General Extremety ED: Negative for edema General Extremity: Negative for edema Neuro oriented x3 and CN's II-XII intact bilaterally Sensorium / Orientation: alert Motor Exam: strength 5/5 throughout Psych mental status grossly normal Mood & Affect: Negative for depressed or tearful Skin no rashes or lesions noted and no wounds MDM MDM MDM Narrative Medical decision making narrative: My concern is for ischemic foot/leg after the initial H&P. Basic blood work was ordered and I immediately started calling tertiary care facilities. After multiple phone calls [facility] has accepted the patient to the emergency room. Vascular surgeon Dr. Mcintyre has requested heparin bolus and drip. Helicopter has been called. Patient has received morphine and Zofran. Unfortunately due to weather concerns and lightening aircraft or not flying south. [facility] contacted vascular surgery at [facility] who has accepted the patient. I think this is a better option as we can get him the care faster as ground delay due to transport time as well as getting a crew here is going to be hours. Lab Data Attestation: I reviewed the patient's lab results. Labs: Laboratory Results - last 24 hr 04/03/22 04/03/22 04/03/22 23:19 23:19 23:19 WBC 12.0 H RBC 4.72 Hgb 14.2 Hct 41.6 MCV 88.1 MCH 30.1 MCHC 34.1 RDW Std Deviation 43.6 RDW Coeff of Esther 13.3 Plt Count 390 MPV 8.2 Immature Gran % (Auto) 1.700 H Neut % (Auto) 79.2 H Lymph % (Auto) 8.1 L [place] % (Auto) 9.7 Eos % (Auto) 0.8 Baso % (Auto) 0.5 Absolute Neuts (auto) 9.5 H Absolute Lymphs (auto) 0.97 Nucleated RBC % 0 PT 13.3 INR 1.0 APTT 28.5 Sodium 132 L Potassium 4.0 Chloride 98 Carbon Dioxide 25.0 Anion Gap 9 BUN 13 Creatinine 0.58 L Estim Creat Clear Calc 41.77 Est GFR (MDRD) Af Amer 173 Est GFR (MDRD) Non-Af 143 BUN/Creatinine Ratio 22.3 H Glucose 102 Calcium 8.3 L Total Bilirubin 0.40 AST 68 H ALT 39 Alkaline Phosphatase 119 H Troponin I High Sens 28 Total Protein 6.3 L Albumin 3.0 L Globulin 3.3 Albumin/Globulin Ratio 0.9 EKG Initial EKG: Attestation: I personally reviewed and interpreted this EKG as follows: Comments: Normal sinus rhythm with a ventricular rate of 100 bpm Critical Care Time Critical Care Time: Yes Critical care time (excluding procedures): 30-74 minutes (31 min), Including time spent:, Discussing w/Patient &/or Family/Transit Mixer Driver, Discussing w/Consultants, Arranging Admission or Transfer and Performing Direct Patient Ca re at Bedside Discharge Plan Triage Chief Complaint: Lower Extremity Injury ED Provider: Braulio Peck Dx/Rx/DC Orders Clinical Impression: Ischemic foot, Nicotine dependence, Lung cancer, Ischemic leg Prescriptions: No Action nitroglycerin 0.4 mg tablet, sublingual 0.4 mg SUBLINGUAL Q5-15M PRN (Reason: chest pain) Qty: 25 Label Comments: DISSOLVE 1 TABLET UNDER THE TONGUE NEEDED FOR CHEST PAIN- MAY REPEAT EVERY 5 MINUTES IF NEEDED ( MAX 3 DOSES.- IF NO RELIEF CALL 911) ipratropium bromide 17 mcg/actuation HFA aerosol inhaler 17 mcg INHALATION DAILY Label Comments: Inhale 2 Puffs as instructed four times daily as needed. ibuprofen 600 MG tablet 600 mg PO Q6H PRN PRN (Reason: Pain) albuterol sulfate 1 INHALER inhaler 1 puff inhalation Q4H PRN PRN (Reason: Asthma) budesonide-formoterol 1 INHALER inhaler 2 puff inhalation BID zolpidem 5 mg Tablet 5 mg PO QHS PRN (Reason: Insomnia) Primary Care Provider: Pedro Jaime Referrals: Pedro Jaime MD [Primary Care Provider] - Disposition Disposition: Acute Care Hospital Discharge Location: [facility]
[2022-04-03 23:30] LABS: Absolute Lymphocyte Count 0.97 X10^3/uL (0.83-4.51); Absolute Neutrophil Count 9.5 X10^3/uL (2.0-7.7); Basophil# 0.06 X10^3/uL; Basophil% 0.5 % (0-1); Eosinophils% 0.8 % (0-5); Hematocrit 41.6 % (40-54); Hemoglobin 14.2 g/dL (13.0-16.5); Lymphocyte # 0.97 X10^3/ul (0.83-4.51); Lymphocyte % 8.1 % (19-41); Mean Corp Hgb Conc 34.1 g/dL (32-36); Mean Corpuscular Hgb 30.1 pg (27.0-32.0); Mean Corpuscular Volume 88.1 fL (80-94); Mean Platelet Vol. 8.2 fl (6.2-12.0); Monocyte# 1.17 X10^3/uL; Monocyte% 9.7 % (0-10); NRBC Flagged by Analyzer 0 % (0-5); Neutrophil # 9.52 X10^3/uL (2.7-7.7); Neutrophil % 79.2 % (47-70); Platelet Count 390 K/mm3 (150-450); RBC Distribution Width CV 13.3 % (11.6-14.6); RBC Distribution Width SD 43.6 fl (35.1-43.9); Red Blood Count 4.72 M/mm3 (4.6-6.2)
[2022-04-03] MEDS: Morphine 4 MG/ML Syringe IV (23:35)
[2022-04-03] MEDS: Ondansetron 4 MG/2 ML Vial IV (23:35)
[2022-04-03] MEDS: 0.9% Normal Saline 1,000 ML 1000 ML IV (23:35)
[2022-04-03 23:38] VITALS: BP 184/86; PULSE 100; RESP 22; O2SAT 95
[2022-04-03 23:39] LABS: Prothrombin Time (Protime)PT. 13.3 SECONDS (11.7-14.9)
[2022-04-03 23:40] LABS: Partial Thromboplast Time 28.5 Seconds (24.1-36.2)
[2022-04-03] MEDS: Heparin Injection (Vial) 5,000 UNIT/ML VIAL 3500 UNIT IV (23:44)
[2022-04-03] MEDS: HEPARIN/D5w 25,000 UNITS 25,000 UNITS/250 ML IV.SOLN. 7 UNITS CONT INF (23:45)
[2022-04-03 23:55] LABS: ALB/GLOB Ratio 0.9 RATIO (0.9-2.4); AST(SGOT) 68 U/L (15-37); Alanine Aminotransfer ALT/SGPT 39 U/L (16-61); Alkaline Phosphatase 119 U/L (45-117); Anion Gap 9 (5-15); BUN 13 mg/dL (7-18); BUN/Creat Ratio 22.3 RATIO (10-20); Calcium,Total 8.3 mg/dL (8.5-10.1); Chloride 98 mmol/L (98-107); Creatinine, Serum 0.58 mg/dL (0.70-1.30); EST Glomerular Filtration Rate 143 mL/min (>60); Est Glom Filt Rate - Afr Amer 173 mL/min (>60); Estimated Creatinine Clearance 41.77 ml/min; Globulin 3.3 g/dL (2.2-4.2); Glucose 102 mg/dL (74-106); Protein, Total 6.3 g/dL (6.4-8.2); Sodium Level 132 mmol/L (136-145); Troponin-I HS 28 pg/mL (3.0-78.0)
[2022-04-04 00:12] LABS: Lactic Acid 1.8 mmol/L (0.4-1.9)
[2022-04-04] MEDS: Morphine 4 MG/ML Syringe IV (00:20)
[2022-04-04 00:41] VITALS: BP 165/85; PULSE 104; RESP 28; O2SAT 93
--- NOTE | 2022-04-04 00:43 | ED.RN ---
attempted to call report to Benedict Clay no answer at [phone].
== END 2022-04-04 00:35 | disposition short-term general hospital (02) ==
PROVIDERS: Emergency Provider Emergency Medicine; PCP Internal Medicine; Visit Provider Emergency Medicine
DX: C34.90 Malignant neoplasm of unspecified part of unspecified bronchus or lung (principal); F17.210 Nicotine dependence, cigarettes, uncomplicated; Z86.73 Personal history of transient ischemic attack (TIA), and cerebral infarction without residual deficits
CPT/HCPCS: 80053; 83605; 84484; 85025; 85610; 85730; 87811; 93005; 96365; 96375; 96376; 99285; J7030; A4216; J2405

== ENCOUNTER 2022-04-29 19:53 | Inpatient (IN) | payer MEDICARE, MEDICAID, SELFPAY ==
[2022-04-29] VITALS (12 sets, daily range): BP systolic 82–169; BP diastolic 38–96; PULSE 60–93; RESP 12–24; TEMP 36.6–36.9; O2SAT 85–100; BMI 18.6
[2022-04-29] MEDS: Ipratropium/Albuterol Sulfate 3 ML AMPUL.NEB INHALATION (20:10)
[2022-04-29] MEDS: Albuterol 2.5 MG/3 ML VIAL.NEB. INHALATION (20:10)
--- NOTE | 2022-04-29 20:10 | EKG12_ITS ---
Test Reason : SOB Blood Pressure : / mmHG Vent. Rate : 089 BPM Atrial Rate : 089 BPM P-R Int : 152 ms QRS Dur : 102 ms QT Int : 394 ms P-R-T Axes : 079 -03 102 degrees QTc Int : 479 ms Normal sinus rhythm Possible Anterior infarct , age undetermined Abnormal ECG Confirmed by KYLE FLOWERS, ROSEMARY ([id number]), visual effects editor MP ARELLANO ([id number]) on 05/01/2022 9:20:21 AM Referred By: Confirmed By:LEENA WRIGHT MD
[2022-04-29] MEDS: Ondansetron 4 MG/2 ML Vial IV (20:15)
[2022-04-29 20:24] LABS: Absolute Neutrophil Count 11.6 X10^3/uL (2.0-7.7); Basophil# 0.01 X10^3/uL; Basophil% 0.1 % (0-1); Eosinophil# 0.01 X10^3/uL; Eosinophils% 0.1 % (0-5); Hematocrit 18.9 % (40-54); Hemoglobin 6.2 g/dL (13.0-16.5); Lymphocyte % 3.9 % (19-41); Mean Corp Hgb Conc 32.8 g/dL (32-36); Mean Corpuscular Hgb 31.2 pg (27.0-32.0); Mean Platelet Vol. 8.9 fl (6.2-12.0); Monocyte# 0.49 X10^3/uL; Monocyte% 3.8 % (0-10); NRBC Flagged by Analyzer 0 % (0-5); Neutrophil # 11.64 X10^3/uL (2.7-7.7); Neutrophil % 91.2 % (47-70); POSITIVE DIFFERENTIAL YES; Platelet Count 561 K/mm3 (150-450); RBC Distribution Width CV 17.9 % (11.6-14.6); RBC Distribution Width SD 55.6 fl (35.1-43.9); Red Blood Count 1.99 M/mm3 (4.6-6.2); White Blood Count 12.8 K/mm3 (4.4-11.0)
[2022-04-29 20:28] LABS: Differential Indicated SCAN CRITERIA MET
[2022-04-29 20:33] LABS: Partial Thromboplast Time 28.9 Seconds (24.1-36.2); Prothrombin Time (Protime)PT. 12.8 SECONDS (11.7-14.9)
--- NOTE | 2022-04-29 20:36 | EDS_ITS ---
HPI History of Present Illness Chief Complaint: Shortness of Breath Informant: patient and EMS Narrative Narrative: 77-year-old male very poor historian presenting to the emergency department telling me that he felt nauseous. I saw him in March when he had an ischemic foot and he was taken I believe to [facility] where he had surgery. He reportedly was transferred back to [facility] [place] for rehabilitation. EMS states that they were advised he signed himself out. He has been staying at a motel with his girlfriend who may be his would but we are not sure. He states that tonight he got nauseated and EMS was called. They found him to have a pulse ox of 68% on room air. Patient has a history of lung cancer TIA peripheral vascular disease and pulmonary arterial hypertension. He has a history of alcoholism and tobacco abuse. He had blood work done 3 days ago that showed a hemoglobin of 6.5 and elevated TSH. I do not know who ordered these but I do not see a hospital department visit. [facility] Medical History (Updated 04/29/22 @ 21:[address] Braulio Peck, ) Abnormal electrocardiogram Alcohol abuse Chronic pain COPD (chronic obstructive pulmonary disease) CVA (cerebral vascular accident) Depression GERD (gastroesophageal reflux disease) Lung cancer Nicotine dependence Prostate cancer Secondary pulmonary arterial hypertension Transient ischemic attack Home Medications albuterol sulfate 90 mcg/actuation aerosol inhaler 1 puff inhalation Q4H PRN PRN Asthma 11/25/15 [History Last Taken 04/20/19 11:30] budesonide-formoterol HFA 80 mcg-4.5 mcg/actuation aerosol inhaler 2 puff inhalation BID 11/25/15 [History Last Taken Unknown] ibuprofen 600 mg tablet 600 mg PO Q6H PRN PRN Pain 11/25/15 [History Last Taken Unknown] nitroglycerin 0.4 mg sublingual tablet 0.4 mg sublingual Q5-15M PRN chest pain #25 tabs 03/18/19 [History Last Taken Unknown] ipratropium bromide 17 mcg/actuation HFA aerosol inhaler 17 mcg inhalation DAILY 03/24/20 [History Last Taken Unknown] zolpidem 5 mg tablet 5 mg PO QHS PRN Insomnia 02/28/22 [History Last Taken Unknown] budesonide-formoterol HFA 80 mcg-4.5 mcg/actuation aerosol inhaler (Symbicort) inhalation 04/29/22 [History Last Taken Unknown] ipratropium bromide 17 mcg/actuation HFA aerosol inhaler (Atrovent HFA) inhalation 04/29/22 [History Last Taken Unknown] metoprolol succinate 25 mg tablet,extended release 24 hr mg PO 04/29/22 [History Last Taken Unknown] Allergy/AdvReac Type Severity Reaction Status Date / Time No Known Allergies Allergy Verified 02/28/22 22:09 Family History Other Cancer Surgical History femoral artery repair History of bronchoscopy History of tonsillectomy Status post tendon repair Social History Smoking Status: Current every day smoker tobacco type: cigarettes alcohol intake: current alcohol intake frequency: 3 or more drinks per day Alcohol type: beer ROS ROS ED Review of Systems ROS Unobtainable: due to mental status Gastrointestinal Gastrointestinal: Reports nausea EXAM Physical Exam Const Vital Signs: 04/29/22 19:54 04/29/22 20:01 04/29/22 20:01 Temperature 98.5 F 98.5 F Temperature Source Temporal Temporal Pulse Rate 93 90 89 Respiratory Rate 24 H 20 H 24 H Respiratory Effort Respiratory Pattern Blood Pressure 169/65 H 141/60 H Blood Pressure Mean 99 87 Pulse Ox 89 99 98 Oxygen Delivery Method Room Air Nasal Cannula Nasal Cannula Oxygen Flow Rate (L/min) 4 4 Fraction of Inspired Oxygen (FIO2) 04/29/22 20:09 04/29/22 20:14 04/29/22 20:56 Temperature Temperature Source Pulse Rate 86 Respiratory Rate 22 H Respiratory Effort Short of Breath Labored Respiratory Pattern Tachypnea Tachypnea Blood Pressure Blood Pressure Mean Pulse Ox 94 Oxygen Delivery Method Nasal Cannula Nasal Cannula Oxygen Flow Rate (L/min) 4 4 Fraction of Inspired Oxygen (FIO2) 04/29/22 20:56 04/29/22 21:00 Temperature Temperature Source Pulse Rate 88 89 Respiratory Rate 22 H 22 H Respiratory Effort Respiratory Pattern Tachypnea Blood Pressure 120/91 H Blood Pressure Mean 100 Pulse Ox 95 99 Oxygen Delivery Method Bi-pap Oxygen Flow Rate (L/min) Fraction of Inspired Oxygen (FIO2) 40 Positive well nourished and well developed General Appearance ED: well developed HEENT Reports normocephalic, head/scalp atraumatic and moist mucous membranes Eyes PERRL and EOMs intact bilaterally Neck no lymphadenopathy, supple and no JVD Resp Resp Narrative: Patient is tachypneic with accessory muscle use. Auscultation: wheezes Cardio regular rate, regular rhythm and no murmurs GI normal to inspection, nondistended, normoactive bowel sounds and non-tender Palpation: soft Back/Spine no CVA tenderness and normal ROM Extremity Extremity Narrative: There is purple ecchymosis over the dorsum of the right foot. He tells me not to worry about it and puts it back under the blanket. General Extremety ED: Negative for edema General Extremity: Negative for edema Neuro oriented x3 and CN's II-XII intact bilaterally Sensorium / Orientation: lethargic Motor Exam: strength 5/5 throughout Psych Mood & Affect: Negative for depressed or tearful Skin no rashes or lesions noted Skin Narrative: Healing surgical incisions of the left foot and leg. There are still stitches in place on the dorsum of the foot. MDM MDM MDM Narrative Medical decision making narrative: Patient was placed on BiPAP out of concern for hypercarbia and given breathing treatments and Solu-Medrol. 2 IVs were placed. Patient ABG returns wnl and we discontinued bipap. He has been in the mid 90s on 4L. White count 12.8 with a hemoglobin of 6.2. Platelet count is 561. Coags are normal. Creatinine 0.55. Troponin 42 lipase 197 AST of 52 and ALT of 30. Covid negative Patient had a large bowel movement here that is black and tarry. This is heme positive. To my knowledge she has no history of esophageal varices. He was given Protonix and placed on a drip. Patient typed and crossed for 2 units to be transfused when ready. He has not been hypotensive or tachycardic. We spoke with GI and Medicine. Lab Data Attestation: I reviewed the patient's lab results. Labs: Laboratory Results - last 24 hr 04/29/22 04/29/22 04/29/22 20:05 20:05 20:05 WBC 12.8 H RBC 1.99 L Hgb 6.2 L Hct 18.9 L MCV 95.0 H MCH 31.2 MCHC 32.8 RDW Std Deviation 55.6 H RDW Coeff of Esther 17.9 H Plt Count 561 H MPV 8.9 Immature Gran % (Auto) 0.900 Neut % (Auto) 91.2 H Lymph % (Auto) 3.9 L Nash % (Auto) 3.8 Eos % (Auto) 0.1 Baso % (Auto) 0.1 Absolute Neuts (auto) 11.6 H Absolute Lymphs (auto) 0.50 L Nucleated RBC % 0 Differential Comment SCANNED PT 12.8 INR 1.0 APTT 28.9 Sodium 139 Potassium 3.6 Chloride 104 Carbon Dioxide 25.0 Anion Gap 10 BUN 8 Creatinine 0.55 L Estim Creat Clear Calc 45.58 Est GFR (MDRD) Af Amer 186 Est GFR (MDRD) Non-Af 153 BUN/Creatinine Ratio 14.6 Glucose 102 Lactic Acid Calcium 7.5 L Total Bilirubin 0.30 AST 52 H ALT 30 Alkaline Phosphatase 85 Troponin I High Sens 42 Total Protein 5.8 L Albumin 2.2 L Globulin 3.6 Albumin/Globulin Ratio 0.6 L Lipase 197 Ethyl Alcohol Crossmatch 04/29/22 04/29/22 04/29/22 20:05 20:05 20:50 WBC RBC Hgb Hct MCV MCH MCHC RDW Std Deviation RDW Coeff of Esther Plt Count MPV Immature Gran % (Auto) Neut % (Auto) Lymph % (Auto) Nash % (Auto) Eos % (Auto) Baso % (Auto) Absolute Neuts (auto) Absolute Lymphs (auto) Nucleated RBC % Differential Comment PT INR APTT Sodium Potassium Chloride Carbon Dioxide Anion Gap BUN Creatinine Estim Creat Clear Calc Est GFR (MDRD) Af Amer Est GFR (MDRD) Non-Af BUN/Creatinine Ratio Glucose Lactic Acid 0.5 Calcium Total Bilirubin AST ALT Alkaline Phosphatase Troponin I High Sens Total Protein Albumin Globulin Albumin/Globulin Ratio Lipase Ethyl Alcohol < 3.0 Crossmatch See Detail ABG Data ABG results: ABG 04/29/22 20:51 Specimen Type ART Sample Site R Radial pH 7.39 Bicarbonate Actual 24.3 Total CO2 26 Base Excess -1 O2 Saturation 99 O2 % 40 ABG pCO2 39.9 ABG pO2 123 H Darius Test Positive Respiration Rate 12 O2 Delivery Device BiPAP Vent Mode AVAPS Tidal Volume 450 POC PEEP 8 EKG Initial EKG: Attestation: I personally reviewed and interpreted this EKG as follows: Comments: Normal sinus rhythm with a ventricular rate of 89 bpm. Critical Care Time Critical Care Time: Yes Critical care time (excluding procedures): 30-74 minutes (35 min), Including time spent:, Discussing w/Patient &/or Family/Airline Managerial Supervisor, Discussing w/Consultants, Arranging Admission or Transfer and Performing Direct Patient Care at Bedside Discharge Plan Dx/Rx/DC Orders Clinical Impression: Acute respiratory failure, Nicotine dependence, Acute upper GI bleed, Anemia requiring transfusions, Contusion of foot Disposition Disposition: Acute Care Hospital [facility]
[2022-04-29 20:44] LABS: Differential Comment SCANNED
[2022-04-29 20:45] LABS: ALB/GLOB Ratio 0.6 RATIO (0.9-2.4); AST(SGOT) 52 U/L (15-37); Alanine Aminotransfer ALT/SGPT 30 U/L (16-61); Albumin, Serum 2.2 g/dL (3.2-5.0); Alkaline Phosphatase 85 U/L (45-117); Anion Gap 10 (5-15); BUN 8 mg/dL (7-18); BUN/Creat Ratio 14.6 RATIO (10-20); Calcium,Total 7.5 mg/dL (8.5-10.1); Chloride 104 mmol/L (98-107); Creatinine, Serum 0.55 mg/dL (0.70-1.30); EST Glomerular Filtration Rate 153 mL/min (>60); Est Glom Filt Rate - Afr Amer 186 mL/min (>60); Estimated Creatinine Clearance 45.58 ml/min; Globulin 3.6 g/dL (2.2-4.2); Glucose 102 mg/dL (74-106); Lipase 197 U/L (73-393); Potassium 3.6 mmol/L (3.5-5.1); Protein, Total 5.8 g/dL (6.4-8.2); Sodium Level 139 mmol/L (136-145); Troponin-I HS 42 pg/mL (3.0-78.0)
[2022-04-29 20:54] LABS: Alcohol, Blood (Medical)-Serum < 3.0 mg/dL
[2022-04-29 20:56] LABS: Allen Test Positive; Base Excess -1 mmol/L (-2 to +2); Bicarbonate 24.3 mmol/L (22-26); Blood Gas Specimen Type ART; FI02 40; Mode AVAPS; O2 Delivery Device BiPAP; PEEP 8; PO2 123 mmHG (75-100); RR 12; SITE R Radial; SO2 99 % (95-99); Total Carbon Dioxide 26 mmol/L; Vt 450; pCO2 39.9 mmHg (35-45); pH 7.39 (7.35-7.45)
[2022-04-29] MEDS: MethylPREDNISolone 125 MG/2 ML Vial IV (21:03)
[2022-04-29 21:11] LABS: Lactic Acid 0.5 mmol/L (0.4-1.9)
--- NOTE | 2022-04-29 21:12 | RAD_ITS ---
INDICATION: hypoxia EXAMINATION/TECHNIQUE: X-RAY - XR Chest 1 View COMPARISON: 10/13/2012 FINDINGS: LIFE-SUPPORT AND LINES: 1. None HEART AND VESSELS: The cardiac silhouette, pulmonary vasculature have normal appearance. No evidence of congestive failure. LUNGS AND PLEURAL SPACES: Patchy infiltrate at the LEFT lung base, small layering bilateral effusions are noted. Sequelae of multiple calcified granulomata at both lung bases. MEDIASTINUM AND HILAR REGIONS: No masses adenopathy noted. No areas of calcification. Visualized upper airway is normal in position. BONY ELEMENTS: No acute bony changes noted. RAD/Chest 1 View (Portable) IMPRESSION: 1. No evidence congestive failure. 2. Atelectasis and developing infiltrate in retrocardiac LEFT lower lobe. Small layering bilateral effusions. 3. Sequelae of multiple bilateral calcified granulomata at the lung bases. Electronically Signed: Sukhjinder Justin MD at 22:36 EDT ,
--- NOTE | 2022-04-29 21:12 | RAD_ITS ---
INDICATION: injury EXAMINATION/TECHNIQUE: X-RAY - RIGHT XR Foot Min 3 Views 3 VIEWS COMPARISON: None. FINDINGS: SOFT TISSUES: No soft tissue swelling or gas. No radiopaque foreign body. BONES/JOINTS: There is normal bony alignment, no fracture identified.. Normal alignment. Preservation of the joint space.. No sclerotic or destructive changes observed. RAD/Foot min 3 Views IMPRESSION: No fracture malalignment or focal bony or joint space abnormality involving the RIGHT foot. Electronically Signed: Sukhjinder Justin MD at 22:19 EDT ,
--- NOTE | 2022-04-29 21:45 | PCM.HP.STD ---
[facility] - General General Date of Admission: 04/29/22 Date of Service: 04/29/22 Chief Complaint: sob HPI Narrative LORI DUMONT, is a 77 M with a significant history of COPD; lung cancer; prostate cancer; tobacco abuse and alcoholism who presents to the emergency department with shortness of breath. History was taken from emergency department doctor and patient's significant other over the phone as patient could not provide history. Reportedly his shortness of breath started about 15 minutes prior to paramedics arrival to patient's motel. Associated with his symptoms is dry cough. Reportedly patient was at [facility] recently for ischemic leg. Per patient's significant other clot was found. The patient significant other could not provide further information on patient ischemic leg. From [facility] patient was discharged to [facility]. Reportedly patient signed out AGAINST MEDICAL ADVICE from [facility] on 04/27/2022. Patient is significant other report that ever since patient checked himself out from [facility] he has been drinking alcohol. On the day of presentation patient drank beer and vodka. [facility] Medical History Abnormal electrocardiogram Alcohol abuse Chronic pain COPD (chronic obstructive pulmonary disease) CVA (cerebral vascular accident) Depression GERD (gastroesophageal reflux disease) Lung cancer Nicotine dependence Prostate cancer Secondary pulmonary arterial hypertension Transient ischemic attack Home Medications albuterol sulfate 90 mcg/actuation aerosol inhaler 1 puff inhalation Q4H PRN PRN Asthma 11/25/15 [History Last Taken 04/20/19 11:30] budesonide-formoterol HFA 80 mcg-4.5 mcg/actuation aerosol inhaler 2 puff inhalation BID 11/25/15 [History Last Taken Unknown] ibuprofen 600 mg tablet 600 mg PO Q6H PRN PRN Pain 11/25/15 [History Last Taken Unknown] nitroglycerin 0.4 mg sublingual tablet 0.4 mg sublingual Q5-15M PRN chest pain #25 tabs 03/18/19 [History Last Taken Unknown] ipratropium bromide 17 mcg/actuation HFA aerosol inhaler 17 mcg inhalation DAILY 03/24/20 [History Last Taken Unknown] zolpidem 5 mg tablet 5 mg PO QHS PRN Insomnia 02/28/22 [History Last Taken Unknown] budesonide-formoterol HFA 80 mcg-4.5 mcg/actuation aerosol inhaler (Symbicort) inhalation 04/29/22 [History Last Taken Unknown] ipratropium bromide 17 mcg/actuation HFA aerosol inhaler (Atrovent HFA) inhalation 04/29/22 [History Last Taken Unknown] metoprolol succinate 25 mg tablet,extended release 24 hr mg PO 04/29/22 [History Last Taken Unknown] Allergy/AdvReac Type Severity Reaction Status Date / Time No Known Allergies Allergy Verified 02/28/22 22:09 Family History Other Cancer Surgical History femoral artery repair History of bronchoscopy History of tonsillectomy Status post tendon repair Social History Smoking Status: Current every day smoker tobacco type: cigarettes alcohol intake: current alcohol intake frequency: 3 or more drinks per day Alcohol type: beer ROS Review of Systems ROS Unobtainable: due to mental status Vital Signs Vital Signs Vital Signs: 04/29/22 19:54 04/29/22 20:01 04/29/22 20:01 Temperature 98.5 F 98.5 F Temperature Source Temporal Temporal Pulse Rate 93 90 89 Respiratory Rate 24 H 20 H 24 H Respiratory Effort Respiratory Pattern Blood Pressure 169/65 H 141/60 H Blood Pressure Mean 99 87 Pulse Ox 89 99 98 Oxygen Delivery Method Room Air Nasal Cannula Nasal Cannula Oxygen Flow Rate (L/min) 4 4 Fraction of Inspired Oxygen (FIO2) 04/29/22 20:09 04/29/22 20:14 04/29/22 20:56 Temperature Temperature Source Pulse Rate 86 Respiratory Rate 22 H Respiratory Effort Short of Breath Labored Respiratory Pattern Tachypnea Tachypnea Blood Pressure Blood Pressure Mean Pulse Ox 94 Oxygen Delivery Method Nasal Cannula Nasal Cannula Oxygen Flow Rate (L/min) 4 4 Fraction of Inspired Oxygen (FIO2) 04/29/22 20:56 04/29/22 21:00 Temperature Temperature Source Pulse Rate 88 89 Respiratory Rate 22 H 22 H Respiratory Effort Respiratory Pattern Tachypnea Blood Pressure 120/91 H Blood Pressure Mean 100 Pulse Ox 95 99 Oxygen Delivery Method Bi-pap Oxygen Flow Rate (L/min) Fraction of Inspired Oxygen (FIO2) 40 Weight Weight: 53.8 kg Body Mass Index (BMI) 18.6 Physical Exam Narrative Physical exam: General: Hypoalert Head: Normocephalic, atraumatic, no tenderness Eyes: EOMI ENT, no trauma, dry mucous membranes, no rhinorrhea Neck: Nontender, no thyromegaly CVS: Regular rate and rhythm. S1-S2 present. No murmur, gallop or rub. Respiratory : Diminished, mild Rales, wheezes. Abdomen: Soft, nontender, nondistended, normal bowel sounds, no masses : Deferred Back: Nontender, no CVA tenderness Extremities: Cachectic ; lateral side of left leg with incision; stitches on left foot. Dorsal side of right foot with ecchymosis. Bilateral leg and feet edema Skin: Ecchymosis on extremities, pale. Neuro: Hypoalert; incoherent Psychiatry: Hypoalert. Results Lab / Micro Data Attestation: I reviewed the patient's lab results. Result Diagrams: 04/29/22 20:05 04/29/22 20:05 Labs: Laboratory Results - last 24 hr 04/29/22 20:05: WBC 12.8 H, RBC 1.99 L, Hgb 6.2 L, Hct 18.9 L, MCV 95.0 H, MCH 31.2, MCHC 32.8, RDW Std Deviation 55.6 H, RDW Coeff of Esther 17.9 H, Plt Count 561 H, MPV 8.9, Immature Gran % (Auto) 0.900, Neut % (Auto) 91.2 H, Lymph % (Auto) 3.9 L, [place] % (Auto) 3.8, Eos % (Auto) 0.1, Baso % (Auto) 0.1, Absolute Neuts (auto) 11.6 H, Absolute Lymphs (auto) 0.50 L, Nucleated RBC % 0, Differential Comment SCANNED 04/29/22 20:05: PT 12.8, INR 1.0, APTT 28.9 04/29/22 20:05: Sodium 139, Potassium 3.6, Chloride 104, Carbon Dioxide 25.0, Anion Gap 10, BUN 8, Creatinine 0.55 L, Estim Creat Clear Calc 45.58, Est GFR (MDRD) Af Amer 186, Est GFR (MDRD) Non-Af 153, BUN/Creatinine Ratio 14.6, Glucose 102, Calcium 7.5 L, Total Bilirubin 0.30, AST 52 H, ALT 30, Alkaline Phosphatase 85, Troponin I High Sens 42, Total Protein 5.8 L, Albumin 2.2 L, Globulin 3.6, Albumin/Globulin Ratio 0.6 L, Lipase 197 04/29/22 20:05: Ethyl Alcohol < 3.0 04/29/22 20:05: Lactic Acid 0.5 04/29/22 20:50: Crossmatch See Detail Micro: Microbiology 04/29/22 20:50 Stool Stool Occult Blood (RD) - Final Occult Blood Positive 04/29/22 20:25 Nasal Secretion SARS-CoV-2 Antigen (Rapid) - Final ABG Data ABG results: ABG 04/29/22 20:51 Specimen Type ART Sample Site R Radial pH 7.39 Bicarbonate Actual 24.3 Total CO2 26 Base Excess -1 O2 Saturation 99 O2 % 40 ABG pCO2 39.9 ABG pO2 123 H Darius Test Positive Respiration Rate 12 O2 Delivery Device BiPAP Vent Mode AVAPS Tidal Volume 450 POC PEEP 8 Assessment & Plan Assessment/Plan (1) Acute respiratory failure: PLAN: Initially placed on BiPAP at the emergency department and then required high flow oxygen. Reportedly patient is not on home oxygen. (2) ABLA (acute blood loss anemia): (3) Acute upper GI bleed: (4) Encephalopathy acute: (5) Pneumonia: PLAN: Plan Acute hypoxemic respiratory failure secondary to pneumonia and COPD exacerbation Pneumonia: Gram-positive, or gram-negative ABG reviewed showed normal pH; PO2 of 123 while on AVAPS. Initially placed on AVAPS at the emergency department and then required high flow oxygen. Reportedly patient is not on home oxygen. Supplemental oxygen continued, titrate to maintain oxygen saturations more than 90%. Solu-Medrol [id number] ordered. DuoNeb [id number] ordered.. Albuterol ordered. CBC on presentation showed white count of 12.8; trend Chest x-ray with developing infiltrates at left retrocardiac area. Azithromycin and ceftriaxone ordered. Acute blood loss anemia likely secondary to upper GI bleed His hemoglobin on presentation was 6.2. Hemoglobin day before presentation was 6.5. Review of records shows baseline Hgb of around 14. 2 units of packed red blood ordered to be transfused at the ED. H&H 1 after transfusion. Emergency department doctor discussed the case with GI nurse practitioner. Gastroenterology consult. Protonix bolus and drip started emergency department. Protonix drip continued. Acute encephalopathy Etiology unclear Ammonia and vitamin B12 ordered Treatment of pneumonia as above. Ischemic left leg/surgical wound on left leg Order to obtain from [facility]. Dressing to left leg Elevated TSH TSH 17.2 on 04/26/2022. Free T3 and T4 ordered. Alcoholism Ethanol level on presentation was less than 3. Placed on CIWA protocol. Thiamine and folic acid ordered. Tobacco abuse Nicotine patch ordered. Moderate protein calorie malnutrition Cachectic. BMI of 18.6. N.p.o. for now in the setting of encephalopathy and GI bleed. DVT prophylaxis: SCDs ordered Charges/Coding Visit Charges Inpatient E&M: 13185 Init Hosp L3
[2022-04-29] MEDS: 0.9% Saline Lock 10 ML Syringe IV (23:47)
[2022-04-29] MEDS: Ceftriaxone 1 GM/50 ML BAG IV (23:58)
[2022-04-30] VITALS (18 sets, daily range): BP systolic 89–135; BP diastolic 40–67; PULSE 64–74; RESP 16–18; TEMP 36.3–37.1; O2SAT 86–100
[2022-04-30] MEDS: 0.9% Normal Saline 1,000 ML 999 ML IV (00:29)
[2022-04-30] MEDS: 0.9% Normal Saline 1,000 ML 75 ML IV (02:01)
[2022-04-30] MEDS: 0.9% Saline Lock 10 ML Syringe IV ×3 (02:04→07:02)
[2022-04-30] MEDS: Furosemide 40 MG/4 ML Vial IV (07:02)
[2022-04-30 07:48] LABS: Absolute Lymphocyte Count 0.16 X10^3/uL (0.83-4.51); Absolute Neutrophil Count 15.8 X10^3/uL (2.0-7.7); Basophil# 0.01 X10^3/uL; Basophil% 0.1 % (0-1); Hematocrit 29.3 % (40-54); Hemoglobin 9.4 g/dL (13.0-16.5); Lymphocyte # 0.16 X10^3/ul (0.83-4.51); Mean Corp Hgb Conc 32.1 g/dL (32-36); Mean Corpuscular Hgb 29.5 pg (27.0-32.0); Mean Corpuscular Volume 91.8 fL (80-94); Mean Platelet Vol. 8.5 fl (6.2-12.0); Monocyte# 0.06 X10^3/uL; Monocyte% 0.4 % (0-10); NRBC Flagged by Analyzer 0 % (0-5); Neutrophil # 15.75 X10^3/uL (2.7-7.7); Neutrophil % 97.8 % (47-70); POSITIVE DIFFERENTIAL YES; Platelet Count 383 K/mm3 (150-450); RBC Distribution Width CV 16.5 % (11.6-14.6); RBC Distribution Width SD 51.1 fl (35.1-43.9); Red Blood Count 3.19 M/mm3 (4.6-6.2); White Blood Count 16.1 K/mm3 (4.4-11.0)
[2022-04-30 07:57] LABS: Differential Indicated SCAN CRITERIA MET
[2022-04-30 08:30] LABS: Vitamin B12 748 pg/mL (211-911)
[2022-04-30 09:06] LABS: Anion Gap 8 (5-15); BUN 8 mg/dL (7-18); BUN/Creat Ratio 17.9 RATIO (10-20); Calcium,Total 7.4 mg/dL (8.5-10.1); Chloride 105 mmol/L (98-107); Creatinine, Serum 0.45 mg/dL (0.70-1.30); EST Glomerular Filtration Rate 194 mL/min (>60); Est Glom Filt Rate - Afr Amer 235 mL/min (>60); Estimated Creatinine Clearance 43.04 ml/min; Free T3 < 0.5 pg/mL (2.18-3.98); Glucose 118 mg/dL (74-106); Potassium 3.4 mmol/L (3.5-5.1); Sodium Level 138 mmol/L (136-145); T4 Free Direct 0.52 ng/dL (0.76-1.46)
[2022-04-30 09:09] LABS: Differential Comment SCANNED
--- NOTE | 2022-04-30 12:03 | PN.HOSP_ITS ---
Subjective Subjective Follow-up for shortness of breath, severe anemia, stitched wound on left foot and peripheral arterial disease. History of recent vascular surgery in left leg and foot from acute ischemic limb found in March and was transferred to [facility] at that time. Severe anemia. Patient has black stool in diaper. Melanotic stool. Had 2 units of PRBC transfusion. H&H improved to 9.4. Cachectic in look. Objective Data Objective Data Vital Signs: Vital Signs Temp Pulse Resp BP Pulse Ox O2 Del Method O2 Flow Rate 97.8 F 64 18 118/49 L 97 Nasal Cannula 2 04/30/22 06:16 04/30/22 07:06 04/30/22 06:16 04/30/22 06:16 04/30/22 06:16 04/30/22 06:16 04/30/22 06:16 FiO2 40 04/29/22 20:56 Oxygen Flow Rate (L/min) 2 Oxygen Delivery Method Nasal Cannula Weight: 111 lb 15.917 oz Body Mass Index (BMI) 18.6 Intake & Output: Intake and Output for Last 24 Hours 04/28/22 04/29/22 04/30/22 23:59 23:59 23:59 Intake Total 110.17 / 110.17 3163 / 3163 Output Total 100 / 100 Balance 110.17 / 110.17 3063 / 3063 Lab / Micro Data Result Diagrams: 04/30/22 07:35 04/30/22 07:35 Labs: Laboratory Results - last 24 hr 04/29/22 20:05: WBC 12.8 H, RBC 1.99 L, Hgb 6.2 L, Hct 18.9 L, MCV 95.0 H, MCH 31.2, MCHC 32.8, RDW Std Deviation 55.6 H, RDW Coeff of Esther 17.9 H, Plt Count 561 H, MPV 8.9, Immature Gran % (Auto) 0.900, Neut % (Auto) 91.2 H, Lymph % (Auto) 3.9 L, [place] % (Auto) 3.8, Eos % (Auto) 0.1, Baso % (Auto) 0.1, Absolute Neuts (auto) 11.6 H, Absolute Lymphs (auto) 0.50 L, Nucleated RBC % 0, Differential Comment SCANNED 04/29/22 20:05: PT 12.8, INR 1.0, APTT 28.9 04/29/22 20:05: Sodium 139, Potassium 3.6, Chloride 104, Carbon Dioxide 25.0, Anion Gap 10, BUN 8, Creatinine 0.55 L, Estim Creat Clear Calc 45.58, Est GFR (MDRD) Af Amer 186, Est GFR (MDRD) Non-Af 153, BUN/Creatinine Ratio 14.6, Glucose 102, Calcium 7.5 L, Total Bilirubin 0.30, AST 52 H, ALT 30, Alkaline Phosphatase 85, Troponin I High Sens 42, Total Protein 5.8 L, Albumin 2.2 L, Globulin 3.6, Albumin/Globulin Ratio 0.6 L, Lipase 197 04/29/22 20:05: Ethyl Alcohol < 3.0 04/29/22 20:05: Lactic Acid 0.5 04/29/22 20:50: Blood Type B POSITIVE, Antibody Screen NEGATIVE, Crossmatch See Detail Micro: Microbiology 04/29/22 20:50 Stool Stool Occult Blood (RD) - Final Occult Blood Positive 04/29/22 20:25 Nasal Secretion SARS-CoV-2 Antigen (Rapid) - Final ABG Data ABG results: ABG 04/29/22 20:51 Specimen Type ART Sample Site R Radial pH 7.39 Bicarbonate Actual 24.3 Total CO2 26 Base Excess -1 O2 Saturation 99 O2 % 40 ABG pCO2 39.9 ABG pO2 123 H Darius Test Positive Respiration Rate 12 O2 Delivery Device BiPAP Vent Mode AVAPS Tidal Volume 450 POC PEEP 8 Radiography Diagnostic Testing: Radiology Impression Chest X-Ray 04/29/22 21:12 IMPRESSION: 1. No evidence congestive failure. 2. Atelectasis and developing infiltrate in retrocardiac LEFT lower lobe. Small layering bilateral effusions. 3. Sequelae of multiple bilateral calcified granulomata at the lung bases. Electronically Signed: Sukhjinder Justin MD at 22:36 EDT , Foot X-Ray 04/29/22 21:12 IMPRESSION: No fracture malalignment or focal bony or joint space abnormality involving the RIGHT foot. Electronically Signed: Sukhjinder Justin MD at 22:19 EDT , Physical Exam Narrative General: Awake, Oriented x3, Cooperative, cachexia, BMI 18.6 kg/m?. HEENT: Atraumatic, PERRLA, EOMI, Normocephalic Oral: No Gingival or Mucosal Lesions/ Ulcerations Neck: Supple, No JVD, Negative Carotid Bruits Lungs: Air entry severely diminished in both lungs. No crepitation/rhonchi. Cardiovascular: Sinus rhythm, Normal S1, Normal S2, No murmurs Abdomen: Bowel Sounds Present, Soft, Non Tender, Non-Distended, melanotic stool in diaper. : No renal angle tenderness. No suprapubic tenderness. Extremities: No edema, Capillary Refill Less than 3 Seconds Skin: Sutured wound in left lateral leg, behind left medial malleolus. Gaped wound in left lateral margin of foot. Bruise on the right dorsal aspect of foot. Musculoskeletal: Moderate muscle atrophy of extremities. No Tenderness to Palpation of Joints or Extremities Neurological: Cranial nerves II-XII grossly intact, DTR 2+/4. Psych/Mental Status: Flat affect. Assessment & Plan Assessment/Plan (1) Acute respiratory failure: PLAN: Initially placed on BiPAP at the emergency department and then required high flow oxygen. Reportedly patient is not on home oxygen. (2) ABLA (acute blood loss anemia): (3) Acute upper GI bleed: (4) Encephalopathy acute: (5) Pneumonia: PLAN: Plan This 77 question gentleman Who was admitted through ER for shortness of breath, semi responsive/altered mental status, hypoxia pulse ox 68% on room air. Patient history of lung cancer, PAD and pulmonary artery hypertension. History of chronic alcohol use and smoking. 1. Acute hypoxemic respiratory failure secondary to pneumonia and COPD exacerbation: ABG reviewed, 7.3 / on 40% FiO2 AVAPS 450 mL TV and 12 RR. Patient is stated he is not on home oxygen. On IV Solu-Medrol, DuoNeb. Chest x-ray shows retrocardiac infiltrate. On ceftriaxone and azithromycin 2. Acute blood loss anemia likely secondary to upper GI bleed: Black tarry stool found on diaper. GI is consulted. Keep NPO. Patient had 2 units of PRBC and hemoglobin improved from 6.5-9.4. On Protonix drip. 3. Acute encephalopathy, acute etiology unclear, probably metabolic/GI Bleed/other medical reasons: Serum ammonia 43, B12 748. Etiology unclear 4. History of recent acute ischemic left leg and surgical wound on the left leg: There is gaping of wound on the left foot. No purulent discharge. Try to obtain medical record from [facility]. Wound care nurse consult for dressing. Patient has bruise on the dorsum of the right foot, from soft tissue trauma. Patient sent his dropped walker by accident on his foot. Hypothyroidism: TSH 17.2 on 04/26/2022. Free T3 and T4 are low. TSH is high therefore we will start on levothyroxine. chronic alcohol use alcoholism Ethanol level on presentation was less than 3. Placed on CIWA protocol. Thiamine and folic acid ordered. Chronic cigarette smoking/tobacco abuse Nicotine patch ordered. Moderate protein calorie malnutrition Cachectic. BMI of 18.6. DVT prophylaxis: SCDs ordered Total time of the visit including total time spent in counseling or coordination of care, (more than 50% of the total time, spent in obtaining medical information from nurses and other ancillary care providers,explaining to the patient about labs, imaging, diagnosis and management of active complex medical conditions), discussion with consult, review of labs and imaging is 40 minutes. Microbiology Past 72 Hours 04/29/22 20:50 Stool Stool Occult Blood (RD) - Final Occult Blood Positive 04/29/22 20:25 Nasal Secretion SARS-CoV-2 Antigen (Rapid) - Final Laboratory Results 04/29/22 20:05: WBC 12.8 H, RBC 1.99 L, Hgb 6.2 L, Hct 18.9 L, MCV 95.0 H, MCH 31.2, MCHC 32.8, RDW Std Deviation 55.6 H, RDW Coeff of Esther 17.9 H, Plt Count 561 H, MPV 8.9, Immature Gran % (Auto) 0.900, Neut % (Auto) 91.2 H, Lymph % (Auto) 3.9 L, [place] % (Auto) 3.8, Eos % (Auto) 0.1, Baso % (Auto) 0.1, Absolute Neuts (auto) 11.6 H, Absolute Lymphs (auto) 0.50 L, Nucleated RBC % 0, Differ ential Comment SCANNED 04/29/22 20:05: PT 12.8, INR 1.0, APTT 28.9 04/29/22 20:05: Sodium 139, Potassium 3.6, Chloride 104, Carbon Dioxide 25.0, Anion Gap 10, BUN 8, Creatinine 0.55 L, Estim Creat Clear Calc 45.58, Est GFR ( MDRD) Af Amer 186, Est GFR (MDRD) Non-Af 153, BUN/Creatinine Ratio 14.6, Glucose 102, Calcium 7.5 L, Total Bilirubin 0.30, AST 52 H, ALT 30, Alkaline Phosphatase 85, Troponin I High Sens 42, Total Protein 5.8 L, Albumin 2.2 L, Globulin 3.6, Albumin/Globulin Ratio 0.6 L, Lipase 197 04/29/22 20:05: Ethyl Alcohol < 3.0 04/29/22 20:05: Lactic Acid 0.5 04/29/22 20:50: Blood Type B POSITIVE, Antibody Screen NEGATIVE, Crossmatch See Detail 04/29/22 20:51: Specimen Type ART, Sample Site R Radial, pH 7.39, Bicarbonate Actual 24.3, Total CO2 26, Base Excess -1, O2 Saturation 99, O2 % 40, ABG pCO2 39.9, ABG pO2 123 H, Darius Test Positive, Respiration Rate 12, O2 Delivery Device BiPAP, Vent Mode AVAPS, Tidal Volume 450, POC PEEP 8 04/30/22 07:35: WBC 16.1 H, RBC 3.19 L, Hgb 9.4 L, Hct 29.3 L, MCV 91.8, MCH 29.5, MCHC 32.1, RDW Std Deviation 51.1 H, RDW Coeff of Esther 16.5 H, Plt Count 383, MPV 8.5, Immature Gran % (Auto) 0.700, Neut % (Auto) 97.8 H, Lymph % (Auto) 1.0 L, [place] % (Auto) 0.4, Eos % (Auto) 0.0, Baso % (Auto) 0.1, Absolute Neuts (auto) 15.8 H, Absolute Lymphs (auto) 0.16 L, Nucleated RBC % 0, Differential Comment SCANNED 04/30/22 07:35: Sodium 138, Potassium 3.4 L, Chloride 105, Carbon Dioxide 25.0, Anion Gap 8, BUN 8, Creatinine 0.45 L, Estim Creat Clear Calc 43.04, Est GFR (MDRD) Af Amer 235, Est GFR (MDRD) Non-Af 194, BUN/Creatinine Ratio 17.9, Glucose 118 H, Calcium 7.4 L, Free T4 0.52 L, Free T3 pg/dL < 0.5 L 04/30/22 07:35: Vitamin B12 748 04/30/22 07:35: Ammonia 43.0 H Clinical Impression(s) from Imaging Studies Chest X-Ray 04/29/22 21:12 IMPRESSION: 1. No evidence congestive failure. 2. Atelectasis and developing infiltrate in retrocardiac LEFT lower lobe. Small layering bilateral effusions. 3. Sequelae of multiple bilateral calcified granulomata at the lung bases. Foot X-Ray 04/29/22 21:12 IMPRESSION: No fracture malalignment or focal bony or joint space abnormality involving the RIGHT foot. Charges/Coding Visit Charges Inpatient E&M: 45566 Subs Hosp L3
[2022-04-30 14:32] LABS: Hematocrit 27.2 % (40-54); Hemoglobin 9.4 g/dL (13.0-16.5)
--- NOTE | 2022-04-30 15:25 | PCM.CONS.GEN ---
Assessment & Plan Assessment/Plan (1) ABLA (acute blood loss anemia): PLAN: The differential diagnosis for acute blood loss anemia in the setting of recent anticoagulation would be an upper GI bleed with rapid transit secondary to angiodysplasia, telangiectasia or peptic ulcer disease. Also dual diagnosis could be neoplasia from an upper or lower gastrointestinal tract contributing to patient's anemia. He does not want to undergo any endoscopic procedure at this time. If he wanted to he could get a capsule as an outpatient or if he changes his mind this can also be done as an outpatient where he gets an upper and lower endoscopy because at this time he seems to be stable. I will continue to follow him while he is in the hospital. Recommend once a day PPI therapy. Hold anticoagulation if possible unless patient knows the risk of going on anticoagulation or antiplatelet therapy in the setting of acute blood loss anemia. HPI Consult Data Date of Consult: 04/30/22 HPI Narrative Reason for Consultation: Gi bleeding HPI Narrative: LORI DUMONT, is a 77 M with a significant history of TIA, [employer] with lung cancer, prostate cancer status post surgery; tobacco abuse and alcoholism with no documented history of cirrhosis presented to the emergency department with shortness of breath. Patient is a very poor historian. His medical history was taken from emergency department doctor and patient's significant other over the phone as patient could not provide history. Reportedly his shortness of breath started about 15 minutes prior to paramedics arrival to patient's motel.? Associated with his symptoms is dry cough. Reportedly patient was at [facility] recently for ischemic leg.? Per patient's significant other clot was found.? The patient significant other could not provide further information on patient ischemic leg. From [facility] patient was discharged to [facility].? Reportedly patient signed out AGAINST MEDICAL ADVICE from [facility] on 04/27/2022. Patient is significant other report that ever since patient checked himself out from [facility] he has been drinking alcohol.? On the day of presentation patient drank beer and vodka. Patient says that he does drink alcohol every day. When he came into the ED he was discovered to have a significant iron deficiency anemia with a hemoglobin of 6.5 on 04/26/2022. When he presented back to the ED on 04/29/2022 his hemoglobin was 6.2. He received transfusion of 3 units of packed red blood cells. His hemoglobin is currently 9.5. Patient says that he has never had a colonoscopy and he does not want a colonoscopy. I asked him did he want to have an upper endoscopy because of his recent surgery and anticoagulation he is at high risk for upper GI bleed. He says that he does not want to undergo an upper endoscopy either. He still admits to some bright red blood per rectum with dark stools. He has been n.p.o. All other 16 review of systems are negative except as pertinent positive mentioned HPI. [facility] Medical History Abnormal electrocardiogram Alcohol abuse Chronic pain COPD (chronic obstructive pulmonary disease) CVA (cerebral vascular accident) Depression GERD (gastroesophageal reflux disease) Lung cancer Nicotine dependence Prostate cancer Secondary pulmonary arterial hypertension Transient ischemic attack Medical History unable to obtain Home Medications albuterol sulfate 90 mcg/actuation aerosol inhaler 1 puff inhalation Q4H PRN PRN Asthma 11/25/15 [History Last Taken 04/20/19 11:30] budesonide-formoterol HFA 80 mcg-4.5 mcg/actuation aerosol inhaler 2 puff inhalation BID 11/25/15 [History Last Taken Unknown] ibuprofen 600 mg tablet 600 mg PO Q6H PRN PRN Pain 11/25/15 [History Last Taken Unknown] nitroglycerin 0.4 mg sublingual tablet 0.4 mg sublingual Q5-15M PRN chest pain #25 tabs 03/18/19 [History Last Taken Unknown] ipratropium bromide 17 mcg/actuation HFA aerosol inhaler 17 mcg inhalation DAILY 03/24/20 [History Last Taken Unknown] zolpidem 5 mg tablet 5 mg PO QHS PRN Insomnia 02/28/22 [History Last Taken Unknown] budesonide-formoterol HFA 80 mcg-4.5 mcg/actuation aerosol inhaler (Symbicort) inhalation 04/29/22 [History Last Taken Unknown] ipratropium bromide 17 mcg/actuation HFA aerosol inhaler (Atrovent HFA) inhalation 04/29/22 [History Last Taken Unknown] metoprolol succinate 25 mg tablet,extended release 24 hr mg PO 04/29/22 [History Last Taken Unknown] Allergy/AdvReac Type Severity Reaction Status Date / Time No Known Allergies Allergy Verified 02/28/22 22:09 Family History Other Cancer Surgical History femoral artery repair History of bronchoscopy History of tonsillectomy Status post tendon repair Surgical History unable to obtain Social History Smoking Status: Current every day smoker tobacco type: cigarettes alcohol intake: current alcohol intake frequency: 3 or more drinks per day Alcohol type: beer ROS ROS Narrative Please see HPI Physical Exam Narrative General: Awake, Oriented x3, Cooperative, cachexia, BMI 18.6 kg/m?. HEENT: Atraumatic, PERRLA, EOMI, Normocephalic Oral: No Gingival or Mucosal Lesions/ Ulcerations Neck: Supple, No JVD, Negative Carotid Bruits Lungs: Air entry severely diminished in both lungs. No crepitation/rhonchi. Cardiovascular: Sinus rhythm, Normal S1, Normal S2, No murmurs Abdomen: Bowel Sounds Present, Soft, Non Tender, Non-Distended, melanotic stool in diaper. : No renal angle tenderness. No suprapubic tenderness. Extremities: No edema, Capillary Refill Less than 3 Seconds Skin: Sutured wound in left lateral leg, behind left medial malleolus. Gaped wound in left lateral margin of foot. Bruise on the right dorsal aspect of foot. Musculoskeletal: Moderate muscle atrophy of extremities. No Tenderness to Palpation of Joints or Extremities Neurological: Cranial nerves II-XII grossly intact, DTR 2+/4. Psych/Mental Status: Flat affect. Lab / Micro Data Result Diagrams: 04/30/22 14:24 04/30/22 07:35 Labs: Laboratory Results - last 24 hr 04/29/22 20:05: WBC 12.8 H, RBC 1.99 L, Hgb 6.2 L, Hct 18.9 L, MCV 95.0 H, MCH 31.2, MCHC 32.8, RDW Std Deviation 55.6 H, RDW Coeff of Esther 17.9 H, Plt Count 561 H, MPV 8.9, Immature Gran % (Auto) 0.900, Neut % (Auto) 91.2 H, Lymph % (Auto) 3.9 L, [place] % (Auto) 3.8, Eos % (Auto) 0.1, Baso % (Auto) 0.1, Absolute Neuts (auto) 11.6 H, Absolute Lymphs (auto) 0.50 L, Nucleated RBC % 0, Differential Comment SCANNED 04/29/22 20:05: PT 12.8, INR 1.0, APTT 28.9 04/29/22 20:05: Sodium 139, Potassium 3.6, Chloride 104, Carbon Dioxide 25.0, Anion Gap 10, BUN 8, Creatinine 0.55 L, Estim Creat Clear Calc 45.58, Est GFR (MDRD) Af Amer 186, Est GFR (MDRD) Non-Af 153, BUN/Creatinine Ratio 14.6, Glucose 102, Calcium 7.5 L, Total Bilirubin 0.30, AST 52 H, ALT 30, Alkaline Phosphatase 85, Troponin I High Sens 42, Total Protein 5.8 L, Albumin 2.2 L, Globulin 3.6, Albumin/Globulin Ratio 0.6 L, Lipase 197 04/29/22 20:05: Ethyl Alcohol < 3.0 04/29/22 20:05: Lactic Acid 0.5 04/29/22 20:50: Blood Type B POSITIVE, Antibody Screen NEGATIVE, Crossmatch See Detail 04/30/22 07:35: WBC 16.1 H, RBC 3.19 L, Hgb 9.4 L, Hct 29.3 L, MCV 91.8, MCH 29.5, MCHC 32.1, RDW Std Deviation 51.1 H, RDW Coeff of Esther 16.5 H, Plt Count 383, MPV 8.5, Immature Gran % (Auto) 0.700, Neut % (Auto) 97.8 H, Lymph % (Auto) 1.0 L, [place] % (Auto) 0.4, Eos % (Auto) 0.0, Baso % (Auto) 0.1, Absolute Neuts (auto) 15.8 H, Absolute Lymphs (auto) 0.16 L, Nucleated RBC % 0, Differential Comment SCANNED 04/30/22 07:35: Sodium 138, Potassium 3.4 L, Chloride 105, Carbon Dioxide 25.0, Anion Gap 8, BUN 8, Creatinine 0.45 L, Estim Creat Clear Calc 43.04, Est GFR (MDRD) Af Amer 235, Est GFR (MDRD) Non-Af 194, BUN/Creatinine Ratio 17.9, Glucose 118 H, Calcium 7.4 L, Free T4 0.52 L, Free T3 pg/dL < 0.5 L 04/30/22 07:35: Vitamin B12 748 04/30/22 07:35: Ammonia 43.0 H 04/30/22 14:24: Hgb 9.4 L, Hct 27.2 L Micro: Microbiology 04/30/22 09:10 Stool C. difficile GDH Antigen & Toxins - Final Toxigenic C. difficile 04/30/22 09:10 Stool C. difficile DNA Amplification - Final 04/30/22 09:10 Stool Enteric Bacteriology - Final 04/29/22 20:50 Stool Stool Occult Blood (RD) - Final Occult Blood Positive 04/29/22 20:25 Nasal Secretion SARS-CoV-2 Antigen (Rapid) - Final ABG Data ABG results: ABG 04/29/22 20:51 Specimen Type ART Sample Site R Radial pH 7.39 Bicarbonate Actual 24.3 Total CO2 26 Base Excess -1 O2 Saturation 99 O2 % 40 ABG pCO2 39.9 ABG pO2 123 H Darius Test Positive Respiration Rate 12 O2 Delivery Device BiPAP Vent Mode AVAPS Tidal Volume 450 POC PEEP 8 Radiology Impression Chest X-Ray 04/29/22 21:12 IMPRESSION: 1. No evidence congestive failure. 2. Atelectasis and developing infiltrate in retrocardiac LEFT lower lobe. Small layering bilateral effusions. 3. Sequelae of multiple bilateral calcified granulomata at the lung bases. Electronically Signed: Sukhjinder Justin MD at 22:36 EDT , Foot X-Ray 04/29/22 21:12 IMPRESSION: No fracture malalignment or focal bony or joint space abnormality involving the RIGHT foot. Electronically Signed: Sukhjinder Justin MD at 22:19 EDT , Charges/Coding Visit Charges Inpatient E&M: 15437 Init Hosp L2
[2022-04-30] MEDS: Vancomycin 125 MG/5 ML Susp PO.SYRINGE PO (15:58)
--- NOTE | 2022-04-30 19:11 | PCM.PN.BLA ---
Progress Note Notified by nursing that patient left AMA.
--- NOTE | 2022-05-01 07:09 | PCM.DC.SUM ---
Providers Date of Admission: 04/29/22 Date of Discharge: 04/30/22 Primary Care Physician: Dr. Pedro Jaime MD Consultations 04/29/22 23:01 Consult: Gastroenterology Routine Consulting Provider: MarvaWilfredo Reason for Consult: ABLA EMERGENT Consult: No MD Notified: Yes Date Notified: 04/30/22 Time Notified: 07:23 Method of Notification: Text 04/29/22 23:30 Consult: Onc/Wound/merchandise flow associate Routine Comment: Reason For Visit: ABLA Diagnosis Discharge Diagnosis (1) ABLA (acute blood loss anemia): Status: Acute Code(s): D62 - Acute posthemorrhagic anemia Medications at Discharge Home Medications albuterol sulfate 90 mcg/actuation aerosol inhaler 1 puff inhalation Q4H PRN PRN Asthma 11/25/15 budesonide-formoterol HFA 80 mcg-4.5 mcg/actuation aerosol inhaler 2 puff inhalation BID 11/25/15 ibuprofen 600 mg tablet 600 mg PO Q6H PRN PRN Pain 11/25/15 nitroglycerin 0.4 mg sublingual tablet 0.4 mg sublingual Q5-15M PRN chest pain #25 tabs 03/18/19 ipratropium bromide 17 mcg/actuation HFA aerosol inhaler 17 mcg inhalation DAILY 03/24/20 zolpidem 5 mg tablet 5 mg PO QHS PRN Insomnia 02/28/22 budesonide-formoterol HFA 80 mcg-4.5 mcg/actuation aerosol inhaler (Symbicort) inhalation 04/29/22 ipratropium bromide 17 mcg/actuation HFA aerosol inhaler (Atrovent HFA) inhalation 04/29/22 metoprolol succinate 25 mg tablet,extended release 24 hr mg PO 04/29/22 Hospital Course Summary of Care Provided Hospital Course: This 77 question gentleman Who was admitted through ER for shortness of breath, semi responsive/altered mental status, hypoxia pulse ox 68% on room air. Patient history of lung cancer, PAD and pulmonary artery hypertension. History of chronic alcohol use and smoking. 1. Acute hypoxemic respiratory failure secondary to pneumonia and COPD exacerbation: ABG reviewed, 7.3 /123 on 40% FiO2 AVAPS 450 mL TV and 12 RR. Patient is stated he is not on home oxygen. On IV Solu-Medrol, DuoNeb. Chest x-ray shows retrocardiac infiltrate. On ceftriaxone and azithromycin 2. Acute blood loss anemia likely secondary to upper GI bleed: Black tarry stool found on diaper. GI is consulted. Keep NPO. Patient had 2 units of PRBC and hemoglobin improved from 6.5-9.4. On Protonix drip. Patient was seen by instrumentation designer. Patient did not want to go to endoscopic procedure while in the hospital and he thinks he is stable but clinically he is not. He wanted as an outpatient. Patient is advised once a day PPI therapy and hold anticoagulation for now until acute blood loss anemia stops or corrected. 3. Acute encephalopathy, acute etiology unclear, probably metabolic/GI Bleed/other medical reasons: Serum ammonia 43, B12 748. Acute encephalopathy resolved. 4. History of recent acute ischemic left leg and surgical wound on the left leg: There is gaping of wound on the left foot. No purulent discharge. Try to obtain medical record from [facility]. Wound care nurse consult for dressing. Patient has bruise on the dorsum of the right foot, from soft tissue trauma. Patient sent his dropped walker by accident on his foot. Hypothyroidism: TSH 17.2 on 04/26/2022. Free T3 and T4 are low. TSH is high therefore we will start on levothyroxine. chronic alcohol use alcoholism Ethanol level on presentation was less than 3. Placed on CIWA protocol. Thiamine and folic acid ordered. Chronic cigarette smoking/tobacco abuse Nicotine patch ordered. Moderate protein calorie malnutrition Cachectic. BMI of 18.6. DVT prophylaxis: SCDs ordered The patient signed AMA. She was try to convince by the nurse and myself but he signed AMA knowing the risk of acute blood loss anemia, GI bleed. Physical Exam Narrative The patient was seen and examined yesterday. Patient told the nurse about 5 PM that he wants to go home but when he was told he cannot go home because he is sick he signed AMA later. Please see physical exam finding on the progress note of 04/30. Weight / BMI Weight Weight: 111 lb 15.917 oz Body Mass Index (BMI) 18.6 ABG / Lab / Microbiology Data Result Diagrams: 04/30/22 14:24 04/30/22 07:35 Laboratory: Laboratory Results - last 24 hr 04/30/22 07:35: WBC 16.1 H, RBC 3.19 L, Hgb 9.4 L, Hct 29.3 L, MCV 91.8, MCH 29.5, MCHC 32.1, RDW Std Deviation 51.1 H, RDW Coeff of Esther 16.5 H, Plt Count 383, MPV 8.5, Immature Gran % (Auto) 0.700, Neut % (Auto) 97.8 H, Lymph % (Auto) 1.0 L, Bay % (Auto) 0.4, Eos % (Auto) 0.0, Baso % (Auto) 0.1, Absolute Neuts (auto) 15.8 H, Absolute Lymphs (auto) 0.16 L, Nucleated RBC % 0, Differential Comment SCANNED 04/30/22 07:35: Sodium 138, Potassium 3.4 L, Chloride 105, Carbon Dioxide 25.0, Anion Gap 8, BUN 8, Creatinine 0.45 L, Estim Creat Clear Calc 43.04, Est GFR (MDRD) Af Amer 235, Est GFR (MDRD) Non-Af 194, BUN/Creatinine Ratio 17.9, Glucose 118 H, Calcium 7.4 L, Free T4 0.52 L, Free T3 pg/dL < 0.5 L 04/30/22 07:35: Vitamin B12 748 04/30/22 07:35: Ammonia 43.0 H 04/30/22 14:24: Hgb 9.4 L, Hct 27.2 L Microbiology: Microbiology 04/30/22 09:10 Stool C. difficile GDH Antigen & Toxins - Final Toxigenic C. difficile 04/30/22 09:10 Stool C. difficile DNA Amplification - Final 04/30/22 09:10 Stool Enteric Bacteriology - Final 04/29/22 20:50 Stool Stool Occult Blood (RD) - Final Occult Blood Positive 04/29/22 20:25 Nasal Secretion SARS-CoV-2 Antigen (Rapid) - Final Meaningful Use Info Meaningful Use Diagnoses (Choose all that apply): None applicable Discharge Plan Admission Admit Date/Time: 04/29/22 21:31 Attending Provider: Rey Hernandez Primary Care Provider: Pedro Jaime Consulting Providers: Huber Carney ; Friend,Wilfredo Discharge Orders/Prescriptions Prescriptions: No Action nitroglycerin 0.4 mg tablet, sublingual 0.4 mg SUBLINGUAL Q5-15M PRN (Reason: chest pain) Qty: 25 Label Comments: DISSOLVE 1 TABLET UNDER THE TONGUE NEEDED FOR CHEST PAIN- MAY REPEAT EVERY 5 MINUTES IF NEEDED ( MAX 3 DOSES.- IF NO RELIEF CALL 911) ipratropium bromide 17 mcg/actuation HFA aerosol inhaler 17 mcg INHALATION DAILY Label Comments: Inhale 2 Puffs as instructed four times daily as needed. ibuprofen 600 MG tablet 600 mg PO Q6H PRN PRN (Reason: Pain) albuterol sulfate 1 INHALER inhaler 1 puff inhalation Q4H PRN PRN (Reason: Asthma) budesonide-formoterol 1 INHALER inhaler 2 puff inhalation BID zolpidem 5 mg Tablet 5 mg PO QHS PRN (Reason: Insomnia) Atrovent HFA 17 mcg/actuation HFA aerosol inhaler INHALATION Label Comments: Inhale 2 Puffs as instructed four times daily as needed. budesonide-formoterol [Symbicort] 80-4.5 mcg/actuation HFA aerosol inhaler INHALATION Label Comments: Inhale 2 Puffs as instructed twice daily. metoprolol succinate 25 mg tablet extended release 24 hr PO Label Comments: TAKE 1 TABLET BY MOUTH DAILY Referrals / Follow Up: Pedro Jaime MD [Primary Care Provider] - Disposition Disposition (needs filled in before D/C Order can be placed): Against Medical Advice
== END 2022-04-30 19:03 | disposition left against medical advice (07) | DRG 811 ==
LOC: ED 21:40 → PCU 22:07
PROVIDERS: Admitting Provider Hospitalist; Emergency Provider Emergency Medicine; PCP Internal Medicine; Visit Provider Internal Medicine
DX: D62 Acute posthemorrhagic anemia (principal); J96.02 Acute respiratory failure with hypercapnia; J96.01 Acute respiratory failure with hypoxia; G93.41 Metabolic encephalopathy; J18.9 Pneumonia, unspecified organism; E44.0 Moderate protein-calorie malnutrition; J44.0 Chronic obstructive pulmonary disease with (acute) lower respiratory infection; J44.1 Chronic obstructive pulmonary disease with (acute) exacerbation; K92.2 Gastrointestinal hemorrhage, unspecified; Z68.1 Body mass index [BMI] 19.9 or less, adult; I27.21 Secondary pulmonary arterial hypertension; I95.9 Hypotension, unspecified; F10.20 Alcohol dependence, uncomplicated; F17.210 Nicotine dependence, cigarettes, uncomplicated; E03.9 Hypothyroidism, unspecified; K21.9 Gastro-esophageal reflux disease without esophagitis; S90.31XA Contusion of right foot, initial encounter; D50.9 Iron deficiency anemia, unspecified; G89.29 Other chronic pain; F32.A Depression, unspecified; Z20.822 Contact with and (suspected) exposure to COVID-19; Z86.73 Personal history of transient ischemic attack (TIA), and cerebral infarction without residual deficits; Z85.118 Personal history of other malignant neoplasm of bronchus and lung; Z85.46 Personal history of malignant neoplasm of prostate; Y90.0 Blood alcohol level of less than 20 mg/100 ml
CPT/HCPCS: 36415; 36600; 71045; 73630; 80048; 80053; 82077; 82140; 82274; 82607; 82803; 83605; 83690; 84439; 84481; 84484; 85014; 85018; 85025; 85610; 85730; 86644; 86850; 86900; 86901; 86920; 86922; 87040; 87493; 87506; 87811; 93005; 94002; 94640; 94667; 97162; 99251; 99285; 99406; J7030; J7050; P9016; A4216; G0463; J1940; J2405; J3490

== ENCOUNTER 2022-05-07 10:26 | Emergency (ER) | payer MEDICARE, MEDICAID, SELFPAY ==
[2022-05-07 10:27] VITALS: BP 106/94; PULSE 77; RESP 20; TEMP 36.2; O2SAT 100; BMI 17.4
[2022-05-07 10:32] VITALS: BP 106/94; PULSE 77; RESP 20; TEMP 36.2; O2SAT 97
--- NOTE | 2022-05-07 11:16 | CASEMGMT ---
SAMIR Note Referral Source: well logging captain Reason: Patients inability to care for self at home. Wounds. SW met with patient recently and inquired about what Assisted Living patient was going to and patient said he didn't call. Patient advised to call his girlfriend Nathen [phone]. SW called patient's girlfriend, Nathen. She reports that she and patient are trying to get into assisted living. They are working with [employer] warehouse insulation worker, Tete Fraser. SW asked about how it is going at home and Reyna reported that patient is not able to do anything but feed himself. Reyna said that patient went to [facility] on 03/31 and was there for 1 month and then went to [facility] and signed himself out. Patient was at [facility] as he had a blood clot removed from his left leg. SW asked how patient did at [facility] and she said he fights with everybody. Reyna said he can't do it and I can't do it. Patient and Reyna are not at the [facility] anymore we got kicked out because of his incontinence. Reyna said that she has a rollator and they have 2 electric wheelchairs. No other DME's. Reyna said that she is not sure if patient has a nebulizer. SW asked Reyna what she thinks would be best for patient and she said keep him there or send him to [facility] and make him stay there. SW explained that patient is his own guardian and thus can make decisions regarding his care. Reyna said because of him I can hardly walk from the bedroom to the bathroom. SW asked Reyna to explain and she said because of all the jerking he does and me trying to set him up in a wheelchair. Patient and Reyna are currently at the [facility]. They have been together for 20+ years. Reyna said that 3 years ago she had an aorta value replaced and patient's care is working on me and causing her extra stress. Reyna said that when patient was at [facility] she could relax more. Reyna said that she sleeps 2 1/2 hours all night long due to caring for patient. updated. Naomi GARCIA
--- NOTE | 2022-05-07 11:20 | EKG12_ITS ---
Test Reason : Blood Pressure : / mmHG Vent. Rate : 062 BPM Atrial Rate : 062 BPM P-R Int : 158 ms QRS Dur : 096 ms QT Int : 492 ms P-R-T Axes : 000 -09 080 degrees QTc Int : 499 ms Normal sinus rhythm Septal infarct , age undetermined Abnormal ECG Confirmed by ASHOK FLOWERS, LE ([id number]), material expeditor MP ARELLANO ([id number]) on 05/09/2022 8:37:50 AM Referred By: Confirmed By:LE PULIDO MD
--- NOTE | 2022-05-07 11:20 | CT_ITS ---
STUDY: CT BRAIN WITHOUT CONTRAST REASON FOR EXAM: Male, 77 years old. And injury. Generalized weakness. RADIATION DOSAGE (If Supplied By Facility): CTDIvol = ( 44.99 ) mGy, DLP = ( 796.11 ) mGycm TECHNIQUE: Transaxial CT imaging of the brain was performed without administration of intravenous contrast material. Individualized dose optimization techniques were used for this CT. COMPARISON: Comparison is made with prior study of 10/13/2012. FINDINGS: Normal soft tissue structures. Normal calvarium. There is mild cerebral atrophy with widening of the extra-axial spaces and ventricular dilatation. There are areas of decreased attenuation within the white matter tracts of the supratentorial brain, consistent with microvascular disease changes. There are small punctate calcifications of the basal ganglia which are seen in the aging brain as a normal variant. Normal brainstem. There is mild cerebellar atrophy. There is no intracranial hemorrhage. There are no findings of an acute ischemic infarction. Atherosclerotic calcification of the cavernous portions of the internal carotid arteries bilaterally. Normal visualized paranasal sinuses. CT/Brain/Head without Contrast IMPRESSION: Chronic involutional changes of the brain. Electronically Signed: Miguel Trejo MD at 12:11 EDT ,
--- NOTE | 2022-05-07 11:20 | VDLE_ITS ---
Reason For Study: Swelling RIGHT LEFT GSV is normal. GSV is normal. CFV is compressible, spontaneous, phasic, CFV is compressible, spontaneous, phasic, competent and demonstrates normal competent, and demonstrates normal augmentation. augmentation. FV is compressible, spontaneous, phasic, FV is compressible, spontaneous, phasic, competent and demonstrates normal competent and demonstrates normal augmentation. augmentation. POP V is compressible, spontaneous, phasic, POP V is compressible, spontaneous, phasic, competent and demonstrates normal competent and demonstrates normal augmentation. augmentation. T/P Trunk is compressible. T/P Trunk is compressible. PTV is compressible. PTV is compressible. RT PerV is compressible. LT PerV is compressible. Procedure This is a venous duplex using B-mode, color flow and spectral Doppler. Exam performed portable in ED. A preliminary report was called and/or faxed to Dr. Fagan. VL/Venous Duplex US - Alexandr Extrem Interpretation Summary No evidence for acute deep venous thrombosis bilateral lower extremities with p atent and compressible bilateral great saphenous veins. Ordering Physician: Katie Fagan Referring Physician: Pedro Jaime M.D. Performed By: Janna Jean RVT
--- NOTE | 2022-05-07 11:23 | EX.ED.DYSGE1 ---
HPI History of Present Illness Chief Complaint: General Illness Informant: patient and EMS Narrative Narrative: Patient is a 77-year-old male with complex medical history including COPD, recent mission for COPD exacerbation, anemia secondary to upper GI bleed status post blood transfusion last week,, chronic alcohol use and recent acute ischemic leg that was surgically treated at [facility].Patient was supposed be on Xarelto but it was stopped due to his recent GI bleed. Its not clear if he still on it or not. He is presented to the emergency room via EMS for weakness and multiple falls. Apparently local EMS has gone to the motel that he staying at 6 times in the last 24 hours because he keeps falling and they have to lift him up. Patient states he was drinking last day but is not anything to drink today. Patient currently states he is cold but has no other complaints at this time. Notes he said chronic diabetes in his left leg since his surgery. Chart review shows that the surgery was on 04/04/2022 [facility] Medical History (Updated 05/07/22 @ 16:[address] Katie Fagan, ) Abnormal electrocardiogram Alcohol abuse Chronic pain COPD (chronic obstructive pulmonary disease) CVA (cerebral vascular accident) Depression GERD (gastroesophageal reflux disease) Lung cancer Nicotine dependence Prostate cancer Secondary pulmonary arterial hypertension Transient ischemic attack Home Medications albuterol sulfate 90 mcg/actuation aerosol inhaler 1 puff inhalation Q4H PRN PRN Asthma 11/25/15 [History Last Taken 04/20/19 11:30] nitroglycerin 0.4 mg sublingual tablet 0.4 mg sublingual Q5-15M PRN chest pain #25 tabs 03/18/19 [History Last Taken Unknown] zolpidem 5 mg tablet 5 mg PO QHS PRN Insomnia 02/28/22 [History Last Taken Unknown] budesonide-formoterol HFA 80 mcg-4.5 mcg/actuation aerosol inhaler (Symbicort) 2 puff inhalation BID 04/29/22 [History Last Taken Unknown] ipratropium bromide 17 mcg/actuation HFA aerosol inhaler (Atrovent HFA) 2 puff inhalation DAILY 04/29/22 [History Last Taken Unknown] metoprolol succinate 25 mg tablet,extended release 24 hr mg PO 04/29/22 [History Last Taken Unknown] levothyroxine 25 mcg tablet 25 mcg PO DAILY #30 tabs 05/01/22 [Rx Last Taken Unknown] pantoprazole 40 mg tablet,delayed release (Protonix) 40 mg PO DAILY #30 tabs 05/01/22 [Rx Last Taken Unknown] levofloxacin 750 mg tablet 750 mg PO DAILY #10 tabs 05/07/22 [Rx Last Taken Unknown] potassium chloride 20 mEq tablet,extended release 20 meq PO BID #14 tabs 05/07/22 [Rx Last Taken Unknown] Allergy/AdvReac Type Severity Reaction Status Date / Time No Known Allergies Allergy Verified 05/07/22 10:32 Family History Other Cancer Surgical History femoral artery repair History of bronchoscopy History of tonsillectomy Status post tendon repair Social History Smoking Status: Current every day smoker tobacco type: cigarettes alcohol intake: current alcohol intake frequency: 3 or more drinks per day Alcohol type: beer ROS ROS ED Constitutional Constitutional ED: Reports other Details: generalized weakness ; Denies chills or fever(s) Eyes Eyes: Denies blurry vision Cardiovascular Cardiovascular: Denies chest pain or palpitations Respiratory/Chest Respiratory/Chest: Reports cough and dyspnea Gastrointestinal Gastrointestinal: Denies abdominal pain or diarrhea Musculoskeletal Musculoskeletal: Denies arthralgias or myalgias Integumentary Reports other Details: surgical incisions left groin and leg ; Denies rash Neurologic Neurologic: Reports paresthesias LLE; Denies headache(s) or weakness Psychiatric Psychiatric: Denies anxiety or depression EXAM Physical Exam Const Vital Signs: 05/07/22 10:27 05/07/22 10:32 05/07/22 10:32 Temperature 97.1 F L 97.1 F L Temperature Source Temporal Temporal Pulse Rate 77 77 Respiratory Rate 20 H 20 H Respiratory Effort Normal Non-Labored Respiratory Pattern Normal Blood Pressure 106/94 H 106/94 H Blood Pressure Mean 98 98 Pulse Ox 100 97 Oxygen Delivery Method Nasal Cannula Room Air Oxygen Flow Rate (L/min) 3 05/07/22 11:32 05/07/22 12:00 05/07/22 13:45 Temperature 97.0 F L 97.0 F L 97.0 F L Temperature Source Temporal Temporal Temporal Pulse Rate 65 64 67 Respiratory Rate 15 22 H 22 H Respiratory Effort Respiratory Pattern Blood Pressure 135/54 H 145/50 H 138/57 H Blood Pressure Mean 81 81 84 Pulse Ox 97 96 95 Oxygen Delivery Method Room Air Room Air Room Air Oxygen Flow Rate (L/min) Positive cachectic and unkempt General Appearance ED: unkempt, cachectic and NAD Nutritional Appearance: cachectic HEENT Reports dry mucous membranes Negative for trauma Mouth ED: Yes dry mucous membranes Mouth: dry mucous membranes Eyes PERRL and EOMs intact bilaterally Neck supple and no JVD Chest Wall inspection of chest normal and palpation of chest normal Resp normal respiratory effort Resp Narrative: Coarse breath sounds throughout Cardio regular rate, regular rhythm and no murmurs GI normal to inspection, nondistended, normoactive bowel sounds Extremity General Extremety ED: Yes edema; Negative for tenderness General Extremity: edema Neuro oriented x3 and CN's II-XII intact bilaterally Neuro Narrative: Subjective paresthesias of the left lower extremity diffusely, sensation to light touch is still intact Sensorium / Orientation: alert; Negative for orientation impaired Motor Exam: general weakness Psych mental status grossly normal Appearance: unkempt Skin Skin Narrative: Healing surgical wound in the left groin as well as the left medial calf and left anterior foot. No signs of secondary infection. There is some granulation tissue noted in the lateral groin wound and some surrounding erythema/maceration consistent with intertrigo. MDM MDM MDM Narrative Medical decision making narrative: Patient evaluated for generalized weakness multiple falls. Upon arrival patient is hemodynamically stable. During transport he was put on oxygen however he is not requiring submental oxygen in the emergency room. He does appear quite dehydrated. He is given a liter of IV fluids. CBC remarkable for a white blood cell count of 18.8. His hemoglobin is stable at 12.1. Platelets are slightly elevated at 518. Lactate is normal at 1.8. CMP largely unremarkable however his potassium is 2.8. Magnesium is checked which is normal. High since troponin is 20. Patient denies any chest pain. Alcohol and ammonia level are negative. Venous duplex obtained which is negative for DVT. He has good distal pulses and I do not suspect a new arterial occlusion. Chest x-ray shows bibasilar pneumonia which corresponds with his complaint of shortness of breath and his leukocytosis. As patient is a recent hospitalization he started on Levaquin and he is given potassium supplementation and a second liter of IV fluids as I suspect he is quite dehydrated/intravascularly depleted. Patient is counseled he should admitted to the hospital especially given his weakness and pneumonia however he declined stating he needs to go home and check his lottery ticket as there is a lot of money on the line. Patient currently does have capacity to make this decision. I spoke extensively with the patient and he verbalized back to me that he understands the risk of , permanent disability and endorgan damage associated with leaving the hospital. I did speak with case management to put in a report to Adult Protective Services. Patient be given a prescription for potassium supplements as well as antibiotics. He is counseled to return to the emergency room if he changes his mind. He states he will follow-up with his primary care doctor as well as his vascular surgeon at [facility]. Lab Data Attestation: I reviewed the patient's lab results. Labs: Laboratory Results - last 24 hr 05/07/22 05/07/22 05/07/22 10:35 11:35 11:35 WBC 18.8 H RBC 4.07 L Hgb 12.1 L Hct 38.1 L MCV 93.6 MCH 29.7 MCHC 31.8 L RDW Std Deviation 58.7 H RDW Coeff of Esther 17.5 H Plt Count 518 H MPV 9.0 Immature Gran % (Auto) 1.700 H Neut % (Auto) 88.0 H Lymph % (Auto) 4.1 L Ulster % (Auto) 5.8 Eos % (Auto) 0.1 Baso % (Auto) 0.3 Absolute Neuts (auto) 16.5 H Absolute Lymphs (auto) 0.77 L Nucleated RBC % 0 PT 12.9 INR 1.0 APTT 30.2 Sodium Potassium Chloride Carbon Dioxide Anion Gap BUN Creatinine Estim Creat Clear Calc Est GFR (MDRD) Af Amer Est GFR (MDRD) Non-Af BUN/Creatinine Ratio Glucose Lactic Acid 1.8 Calcium Magnesium Total Bilirubin AST ALT Alkaline Phosphatase Ammonia Troponin I High Sens Total Protein Albumin Globulin Albumin/Globulin Ratio Ethyl Alcohol 05/07/22 05/07/22 05/07/22 11:35 11:35 11:35 WBC RBC Hgb Hct MCV MCH MCHC RDW Std Deviation RDW Coeff of Esther Plt Count MPV Immature Gran % (Auto) Neut % (Auto) Lymph % (Auto) Ulster % (Auto) Eos % (Auto) Baso % (Auto) Absolute Neuts (auto) Absolute Lymphs (auto) Nucleated RBC % PT INR APTT Sodium 140 Potassium 2.8 L Chloride 98 Carbon Dioxide 30.0 Anion Gap 12 BUN 9 Creatinine 0.60 L Estim Creat Clear Calc 42.95 Est GFR (MDRD) Af Amer 169 Est GFR (MDRD) Non-Af 139 BUN/Creatinine Ratio 15.1 Glucose 59 L Lactic Acid Calcium 8.1 L Magnesium Total Bilirubin 0.70 AST 19 ALT 19 Alkaline Phosphatase 112 Ammonia < 10.0 L Troponin I High Sens 20 Total Protein 5.4 L Albumin 2.0 L Globulin 3.4 Albumin/Globulin Ratio 0.6 L Ethyl Alcohol < 3.0 05/07/22 11:35 WBC RBC Hgb Hct MCV MCH MCHC RDW Std Deviation RDW Coeff of Esther Plt Count MPV Immature Gran % (Auto) Neut % (Auto) Lymph % (Auto) Ulster % (Auto) Eos % (Auto) Baso % (Auto) Absolute Neuts (auto) Absolute Lymphs (auto) Nucleated RBC % PT INR APTT Sodium Potassium Chloride Carbon Dioxide Anion Gap BUN Creatinine Estim Creat Clear Calc Est GFR (MDRD) Af Amer Est GFR (MDRD) Non-Af BUN/Creatinine Ratio Glucose Lactic Acid Calcium Magnesium 2.1 Total Bilirubin AST ALT Alkaline Phosphatase Ammonia Troponin I High Sens Total Protein Albumin Globulin Albumin/Globulin Ratio Ethyl Alcohol Radiography Chest X-Ray - ED: 1 View, Read by ED Physician, Read by Radiologist, Right Infiltrate and Left Infiltrate Diagnostic Testing: Clinical Impression(s) from Imaging Studies Brain CT 05/07/22 11:20 IMPRESSION: Chronic involutional changes of the brain. Electronically Signed: Miguel Trejo MD at 12:11 EDT , Chest X-Ray 05/07/22 11:50 IMPRESSION: Stable blunting of left costophrenic angle with left basilar atelectasis and/or infiltrate. Electronically Signed: Miguel Trejo MD at 12:09 EDT , Chest CTA 05/07/22 12:30 IMPRESSION: Tiny intraluminal filling defects seen in a single branch of the right interlobar pulmonary artery. The lateral pleural effusions right greater than left with bibasilar atelectasis and/or infiltrate. Electronically Signed: Miguel Trejo MD at 13:16 EDT , Rhythm Strip Rhythm Strip: Sinus Rhythm Rate: 62 Ectopy: None EKG Initial EKG: Attestation: I personally reviewed and interpreted this EKG as follows: Interpretation: Sinus Rhythm Comments: Normal sinus rhythm at a rate of 62 Normal axis Normal intervals Normal ST segments Discharge Plan Triage Chief Complaint: General Illness ED Provider: Katie Fagan Dx/Rx/DC Orders Clinical Impression: Bilateral pneumonia, Generalized weakness, Falls frequently, Acute hypokalemia, Leukocytosis, Left against medical advice Instructions: ED Hypokalemia, ED Pneumonia (Adult), ED Weakness (Uncertain Cause) Prescriptions: New levofloxacin 750 mg tablet 750 mg PO DAILY Qty: 10 0RF potassium chloride 20 mEq tablet extended release 20 meq PO BID Qty: 14 0RF No Action nitroglycerin 0.4 mg tablet, sublingual 0.4 mg SUBLINGUAL Q5-15M PRN (Reason: chest pain) Qty: 25 Label Comments: DISSOLVE 1 TABLET UNDER THE TONGUE NEEDED FOR CHEST PAIN- MAY REPEAT EVERY 5 MINUTES IF NEEDED ( MAX 3 DOSES.- IF NO RELIEF CALL 911) albuterol sulfate 1 INHALER inhaler 1 puff inhalation Q4H PRN PRN (Reason: Asthma) zolpidem 5 mg Tablet 5 mg PO QHS PRN (Reason: Insomnia) Atrovent HFA 17 mcg/actuation HFA aerosol inhaler 2 puff INHALATION DAILY Label Comments: Inhale 2 Puffs as instructed four times daily as needed. budesonide-formoterol [Symbicort] 80-4.5 mcg/actuation HFA aerosol inhaler 2 puff INHALATION BID Label Comments: Inhale 2 Puffs as instructed twice daily. metoprolol succinate 25 mg tablet extended release 24 hr PO Label Comments: TAKE 1 TABLET BY MOUTH DAILY pantoprazole [Protonix] 40 mg tablet,delayed release (DR/EC) 40 mg PO DAILY Qty: 30 2RF levothyroxine 25 mcg tablet 25 mcg PO DAILY Qty: 30 1RF Primary Care Provider: Pedro Jaime Referrals: Pedro Jaime MD [Primary Care Provider] - Activity Restrictions/Additional Instructions: Please return immediately to the emergency room if you change your mind and would like to be admitted to the hospital or if you have any worsening symptoms or further falls. You have pneumonia in both of your lungs as well as a dangerously low potassium. Disposition Disposition: Against Medical Advice
[2022-05-07 11:32] VITALS: BP 135/54; PULSE 65; RESP 15; TEMP 36.1; O2SAT 97
[2022-05-07] MEDS: 0.9% Normal Saline 1,000 ML 1000 ML IV (11:34)
--- NOTE | 2022-05-07 11:50 | RAD_ITS ---
STUDY: X-RAY CHEST REASON FOR EXAM: Male, 77 years old. Sob TECHNIQUE: Single AP portable view of the chest. COMPARISON: Comparison is made with prior study of 04/29/2002. FINDINGS: EKG electrodes are seen. Hyperinflation. Stable scattered bilateral calcified granulomas. Blunting of both posterior triangles. Persistent mild increased markings at the left lung base suggestive of left basilar atelectasis and/or early infiltrate. Normal size heart. Normal mediastinum and lisa. Normal visualized pulmonary arteries. There is atherosclerotic calcification of the aortic arch with tortuosity. There are diffuse degenerative changes of the visualized thoracic spine. There is degenerative osteoarthritis of the bilateral shoulders. Healed left clavicular fracture. There is no demonstrated abnormality of the visualized soft tissue structures of the upper abdomen. RAD/Chest 1 View (Portable) IMPRESSION: Stable blunting of left costophrenic angle with left basilar atelectasis and/or infiltrate. Electronically Signed: Miguel Trejo MD at 12:09 EDT ,
[2022-05-07 11:51] LABS: Absolute Lymphocyte Count 0.77 X10^3/uL (0.83-4.51); Absolute Neutrophil Count 16.5 X10^3/uL (2.0-7.7); Basophil# 0.06 X10^3/uL; Basophil% 0.3 % (0-1); Eosinophil# 0.02 X10^3/uL; Eosinophils% 0.1 % (0-5); Hematocrit 38.1 % (40-54); Hemoglobin 12.1 g/dL (13.0-16.5); Lymphocyte # 0.77 X10^3/ul (0.83-4.51); Lymphocyte % 4.1 % (19-41); Mean Corp Hgb Conc 31.8 g/dL (32-36); Mean Corpuscular Hgb 29.7 pg (27.0-32.0); Mean Corpuscular Volume 93.6 fL (80-94); Monocyte# 1.08 X10^3/uL; Monocyte% 5.8 % (0-10); NRBC Flagged by Analyzer 0 % (0-5); Neutrophil # 16.54 X10^3/uL (2.7-7.7); Platelet Count 518 K/mm3 (150-450); RBC Distribution Width CV 17.5 % (11.6-14.6); RBC Distribution Width SD 58.7 fl (35.1-43.9); Red Blood Count 4.07 M/mm3 (4.6-6.2); White Blood Count 18.8 K/mm3 (4.4-11.0)
[2022-05-07 12:00] VITALS: BP 145/50; PULSE 64; RESP 22; TEMP 36.1; O2SAT 96
[2022-05-07 12:00] LABS: Partial Thromboplast Time 30.2 Seconds (24.1-36.2); Prothrombin Time (Protime)PT. 12.9 SECONDS (11.7-14.9)
--- NOTE | 2022-05-07 12:02 | ED.RN ---
Called Dr. Savage's office for pt's medlist. They will fax over.
[2022-05-07 12:13] LABS: ALB/GLOB Ratio 0.6 RATIO (0.9-2.4); AST(SGOT) 19 U/L (15-37); Alanine Aminotransfer ALT/SGPT 19 U/L (16-61); Alkaline Phosphatase 112 U/L (45-117); Anion Gap 12 (5-15); BUN 9 mg/dL (7-18); BUN/Creat Ratio 15.1 RATIO (10-20); Calcium,Total 8.1 mg/dL (8.5-10.1); Chloride 98 mmol/L (98-107); EST Glomerular Filtration Rate 139 mL/min (>60); Est Glom Filt Rate - Afr Amer 169 mL/min (>60); Estimated Creatinine Clearance 42.95 ml/min; Globulin 3.4 g/dL (2.2-4.2); Glucose 59 mg/dL (74-106); Potassium 2.8 mmol/L (3.5-5.1); Protein, Total 5.4 g/dL (6.4-8.2); Sodium Level 140 mmol/L (136-145); Troponin-I HS 20 pg/mL (3.0-78.0)
[2022-05-07 12:20] LABS: Lactic Acid 1.8 mmol/L (0.4-1.9)
[2022-05-07 12:20] LABS: Ammonia < 10.0 umol/L (11-32)
[2022-05-07 12:29] LABS: Alcohol, Blood (Medical)-Serum < 3.0 mg/dL
--- NOTE | 2022-05-07 12:30 | CT_ITS ---
STUDY: CTA CHEST REASON FOR EXAM: Male, 77 years old. Sob , concern for pe RADIATION DOSAGE (If Supplied By Facility): CTDIvol = ( 10.54 ) mGy, DLP = ( 333.15 ) mGycm TECHNIQUE: The examination was performed with the intravenous administration of IV 75mL Isovue-370. Post-processing of the angiographic images was performed, with multiplanar reformation and 3D reconstruction. Individualized dose optimization techniques were used for this CT. COMPARISON: Comparison is made with prior study dated 02/28/2022. FINDINGS: A tiny intraluminal filling defect is seen in a branch of the proximal right lower lobe interlobar artery. This is in tip of a tiny nonobstructive pulmonary embolism. There is atherosclerotic calcification of the aortic arch with tortuosity. There is no demonstrated aortic dissection. There are calcifications of the coronary arteries. Normal mediastinum. Normal hilar regions. Normal visualized trachea and bronchi. Diffuse emphysematous changes. Centrilobular emphysema in the upper lobes. Small bilateral pleural effusions right greater than left with bibasilar atelectasis and/or infiltrates. Fluid is seen in the left major fissure. Scattered calcified granulomas. Normal chest wall structures. There are degenerative changes of thoracic spine. Small gallstones are seen along the dependent portion of the gallbladder lumen. CT/CTA Chest W/WO Contrast IMPRESSION: Tiny intraluminal filling defects seen in a single branch of the right interlobar pulmonary artery. The lateral pleural effusions right greater than left with bibasilar atelectasis and/or infiltrate. Electronically Signed: Miguel Trejo MD at 13:16 EDT ,
--- NOTE | 2022-05-07 13:30 | ED.RN ---
pt reports used motorized scooter at home with walker in the bathroom d/t scooter not fitting through doorway.
[2022-05-07 13:45] VITALS: BP 138/57; PULSE 67; RESP 22; TEMP 36.1; O2SAT 95
[2022-05-07] MEDS: Potassium Chloride 10mEq/100mL 10 MEQ/100 ML IV.SOLN. 100 MEQ IV BOLUS ×2 (14:03→15:10)
[2022-05-07] MEDS: 0.9% Normal Saline 1,000 ML 999 ML IV (14:03)
[2022-05-07] MEDS: levoFLOXacin 750 MG Tablet PO (14:03)
[2022-05-07] MEDS: Potassium Chloride Oral Tablet 20 MEQ 40 MEQ PO (14:03)
[2022-05-07 14:11] LABS: Magnesium 2.1 mg/dL (1.6-2.6)
--- NOTE | 2022-05-07 14:50 | CM.ED ---
Addendum entered by Naomi Yeager 05/07/22 14:54: SAMIR called Jacob again and advised there was wounds on patient's backside that needed care and that per EMS patient had called EMS 6x in 24 hours. Naomi GARCIA Original Note: SAMIR called Jacob at [facility] and left voice mail message about concerns about patient and him AMA and girlfriend voicing she can't take care of him. SAMIR left call back number. Naomi GARCIA
--- NOTE | 2022-05-07 15:41 | ED.RN ---
KLAUDIA CORLEY, SUPERVISOR WOUND FOR PT, CALLED AND SPOKE TO THIS RN. REQUESTING PT NOT LEAVE AMA. THIS NURSE RELAYED THAT PT HAS ABILITY TO MAKE HIS OWN MEDICAL DECISIONS
[2022-05-07 18:27] VITALS: BP 154/89
--- NOTE | 2022-05-07 20:32 | CM.ED ---
SAMIR Note SW was advised that patient is leaving AMA but the significant other reports that she is not letting him in the house at discharge. SW asked patient about plans for transport home. Patient said that he has $80 but then reported it is at home. Patient also said that he had cab vouchers but they are at home. SW then advised that the significant other had stated that she would not let patient into the house and patient said I got a steel. SW asked where the steel was and patient said his pants pocket. SAMIR spoke with senior safety support manager Leslie and TISH Bacon. The concern was patient getting into the house from when the cab drops him off. Discussed ambullette transport for patient. Sharda, community development specialist, called for transport. Patient transported home via [facility]. SAMIR left voice mail for Jacob at [facility]. SAMIR left a total of 3 voice mail messages for Jacob at [facility] with the most recent incident with patient's signficant other not wanting him to go home. Naomi GARCIA
--- NOTE | 2022-05-10 20:18 | CM.ED ---
SAMIR Note SAMIR called Jacob at [facility] and left voice mail that patient was admitted to PCU so SAMIR is Dhara. Naomi GARCIA
== END 2022-05-07 18:28 | disposition left against medical advice (07) ==
PROVIDERS: Emergency Provider Emergency Medicine; PCP Internal Medicine; Visit Provider Emergency Medicine
DX: J18.9 Pneumonia, unspecified organism (principal); J44.9 Chronic obstructive pulmonary disease, unspecified; R53.1 Weakness; E87.6 Hypokalemia; F10.10 Alcohol abuse, uncomplicated; F17.210 Nicotine dependence, cigarettes, uncomplicated; I10 Essential (primary) hypertension; K92.2 Gastrointestinal hemorrhage, unspecified; Z86.73 Personal history of transient ischemic attack (TIA), and cerebral infarction without residual deficits; Z79.899 Other long term (current) drug therapy; Z53.29 Procedure and treatment not carried out because of patient's decision for other reasons
CPT/HCPCS: 96365; 96366; 99285; 70450; 71045; 71275; 80053; 82077; 82140; 83605; 83735; 84484; 85025; 85610; 85730; 87040; 93005; 93970; J7030; Q9967; A4216

== ENCOUNTER 2022-05-10 13:14 | Inpatient (IN) | payer MEDICARE, MEDICAID, SELFPAY ==
[2022-05-10] VITALS (17 sets, daily range): BP systolic 108–148; BP diastolic 49–78; PULSE 77–94; RESP 16–22; TEMP 36.2–37.2; O2SAT 94–100; BMI 18.5; BMI 17.4
--- NOTE | 2022-05-10 14:01 | EKG12_ITS ---
Test Reason : SOB Blood Pressure : / mmHG Vent. Rate : 082 BPM Atrial Rate : 082 BPM P-R Int : 114 ms QRS Dur : 100 ms QT Int : 472 ms P-R-T Axes : 000 -02 192 degrees QTc Int : 551 ms Normal sinus rhythm Septal infarct , age undetermined ST & T wave abnormality, consider anterolateral ischemia Prolonged QT Abnormal ECG Confirmed by RADHA FLOWERS, TERRANCE ([id number]), editor index MP ARELLANO ([id number]) on 05/14/2022 10:12:58 AM Referred By: Confirmed By:TERRANCE GARCIA MD
--- NOTE | 2022-05-10 14:03 | EDS_ITS ---
HPI History of Present Illness Chief Complaint: Shortness of Breath Informant: patient Onset/Context/Timing Onset: Days (several) Context: gradual Timing: Continuous Quality: Positive for Dyspnea on exertion and Wheezing Current Severity: Mild Maximum Severity: Moderate Worsened by: Exertion and Coughing Relieved by: Albuterol (duoneb given by EMS) Associated Symptoms cough Chest Pain: Positive for Intermittent and - (just hurt) Narrative Narrative: Patient presents with dyspnea over the last couple days. He has COPD no home oxygen, was around 80% for EMS. To give a DuoNeb and he feels a little better now. He has some inhalers but denies having a rescue inhaler. States he has been having some intermittent chest discomfort, he cannot describe it and does not have it presently. [facility] Medical History ABLA (acute blood loss anemia) Abnormal electrocardiogram Acute upper GI bleed Alcohol abuse Chronic pain Contusion of foot COPD (chronic obstructive pulmonary disease) CVA (cerebral vascular accident) Depression GERD (gastroesophageal reflux disease) Lung cancer Nicotine dependence Pneumonia Prostate cancer Secondary pulmonary arterial hypertension Transient ischemic attack Home Medications albuterol sulfate 90 mcg/actuation aerosol inhaler 1 puff inhalation Q4H PRN PRN Asthma 11/25/15 [History Last Taken 05/09/22] nitroglycerin 0.4 mg sublingual tablet 0.4 mg sublingual Q5-15M PRN chest pain # 25 tabs 03/18/19 [History Last Taken 1 Week Ago ~05/03/22] zolpidem 5 mg tablet 5 mg PO QHS PRN Insomnia 02/28/22 [History Last Taken 05/09/22] budesonide-formoterol HFA 80 mcg-4.5 mcg/actuation aerosol inhaler (Symbicort) 2 puff inhalation BID copd 04/29/22 [History Last Taken 05/09/22] ipratropium bromide 17 mcg/actuation HFA aerosol inhaler (Atrovent HFA) 2 puff inhalation DAILY copd 04/29/22 [History Last Taken 05/09/22] metoprolol succinate 25 mg tablet,extended release 24 hr 25 mg PO DAILY bp 04/29/22 [History Last Taken 05/08/22] levothyroxine 25 mcg tablet 25 mcg PO DAILY thyroid 05/10/22 [History Last Taken Unknown] pantoprazole 40 mg tablet,delayed release (Protonix) 40 mg PO DAILY stomach 05/10/22 [History Last Taken 05/08/22] potassium chloride 20 mEq tablet,extended release 20 meq PO BID supplement 05/10/22 [History Last Taken 05/08/22] Allergy/AdvReac Type Severity Reaction Status Date / Time No Known Allergies Allergy Verified 05/07/22 10:32 Family History Other Cancer Surgical History femoral artery repair History of bronchoscopy History of tonsillectomy Status post tendon repair Social History Smoking Status: Current every day smoker tobacco type: cigarettes alcohol intake: current alcohol intake frequency: 3 or more drinks per day Alcohol type: beer ROS ROS ED Constitutional Constitutional ED: Denies chills or fever(s) Eyes Eyes: Denies change in vision or diplopia ENT ENT ED: Denies rhinorrhea or sore throat Cardiovascular Cardiovascular: Reports chest pain; Denies orthopnea or palpitations Respiratory/Chest Respiratory/Chest: Reports cough, dyspnea, dyspnea on exertion and other Details: Coughing is minimal, nonproductive ; Denies orthopnea or sputum Gastrointestinal Gastrointestinal: Denies abdominal pain, diarrhea, nausea or vomiting Genitourinary Genitourinary ED: Denies dysuria or hematuria Musculoskeletal Musculoskeletal: Denies back pain or neck pain Integumentary Reports wounds; Denies abscess or rash Neurologic Neurologic: Denies headache(s), paresthesias or weakness Psychiatric Psychiatric: Denies anxiety or suicidal thoughts EXAM Physical Exam Const Vital Signs: 05/10/22 13:16 05/10/22 13:20 05/10/22 13:20 Temperature 98.5 F 98.5 F Temperature Source Temporal Temporal Pulse Rate 86 86 Respiratory Rate 20 H 18 Respiratory Effort Short of Breath Respiratory Depth Shallow Respiratory Pattern Normal Blood Pressure 135/58 H 135/58 H Blood Pressure Mean 83 83 Pulse Ox 100 100 Oxygen Delivery Method Nasal Cannula Nasal Cannula Nasal Cannula Oxygen Flow Rate (L/min) 2 2 2 05/10/22 14:17 05/10/22 14:17 05/10/22 14:14 Temperature Temperature Source Pulse Rate 79 79 Respiratory Rate 18 18 Respiratory Effort Respiratory Depth Respiratory Pattern Normal Blood Pressure 121/49 H Blood Pressure Mean 73 Pulse Ox 100 100 Oxygen Delivery Method Nasal Cannula Nasal Cannula Oxygen Flow Rate (L/min) 3 3 05/10/22 14:48 05/10/22 14:20 05/10/22 15:00 Temperature 97.9 F 98.9 F Temperature Source Temporal Oral Pulse Rate 79 94 88 Respiratory Rate 16 20 H 20 H Respiratory Effort Respiratory Depth Respiratory Pattern Normal Blood Pressure 148/78 H 138/78 H Blood Pressure Mean 101 98 Pulse Ox 94 97 Oxygen Delivery Method Nasal Cannula Nasal Cannula Oxygen Flow Rate (L/min) 2 2 05/10/22 15:37 Temperature Temperature Source Pulse Rate 81 Respiratory Rate 16 Respiratory Effort Respiratory Depth Respiratory Pattern Blood Pressure Blood Pressure Mean Pulse Ox Oxygen Delivery Method Oxygen Flow Rate (L/min) Positive well nourished and well developed Constitutional Narrative: thin General Appearance ED: well developed and NAD HEENT Reports moist mucous membranes normocephalic and atraumatic Eyes PERRL and EOMs intact bilaterally Neck full ROM, no lymphadenopathy, supple, no meningeal signs and no JVD Resp normal respiratory effort Resp Narrative: Diffuse expiratory wheezes, diminished throughout symmetrically, trachea midline. No distress. Cardio regular rate, regular rhythm and no murmurs GI non-tender and non-distended Auscultation: normoactive bowel sounds Palpation: soft Back/Spine no CVA tenderness General Back: other FROM Extremity Extremity Narrative: Healing nontender lateral left lower leg surgical incision without signs of infection or discharge General Extremety ED: Negative for edema, pulses abnormal or tenderness General Extremity: Negative for edema or pulses abnormal Neuro oriented x3, CN's II-XII intact bilaterally and no sensory deficits noted Sensorium / Orientation: awake and alert Motor Exam: strength 5/5 throughout Skin no rashes or lesions noted Skin Narrative: Healing wound without infection lateral left lower extremity, some sutures intact MDM MDM MDM Narrative Medical decision making narrative: Work-up shows an elevated BNP with normal renal function, and a slightly nonspecifically elevated troponin at 156, and an EKG that shows changes compared with the prior from 04/29/2022 which was simply 1.5 weeks ago. He has abnormalities in the septal/lateral precordial leads mostly significant T wave inversions, with some slight ST segment elevations in V3 but not the other leads. Patient states he is having no chest discomfort and the last time he had chest discomfort was yesterday. He is feeling better after nebulizer treatments, but given all of this as well as symptoms that sound like his COPD worsening, plan is admission to the hospital. Lab Data Attestation: I reviewed the patient's lab results. Labs: Laboratory Results - last 24 hr 05/10/22 05/10/22 05/10/22 13:05 13:05 13:05 WBC 14.0 H RBC 3.60 L Hgb 10.6 L Hct 33.8 L MCV 93.9 MCH 29.4 MCHC 31.4 L RDW Std Deviation 58.5 H RDW Coeff of Etsher 17.2 H Plt Count 431 MPV 8.8 Immature Gran % (Auto) 1.600 H Neut % (Auto) 84.2 H Lymph % (Auto) 9.2 L [place] % (Auto) 4.6 Eos % (Auto) 0.1 Baso % (Auto) 0.3 Absolute Neuts (auto) 11.8 H Absolute Lymphs (auto) 1.29 Nucleated RBC % 0 Sodium 143 Potassium 3.3 L Chloride 102 Carbon Dioxide 33.0 H Anion Gap 8 BUN 7 Creatinine 0.67 L Estim Creat Clear Calc 45.47 Est GFR (MDRD) Af Amer 148 Est GFR (MDRD) Non-Af 122 BUN/Creatinine Ratio 10.5 Glucose 81 Calcium 7.9 L Troponin I High Sens 156 H* B-Natriuretic Peptide 2824.3 H Radiography Chest X-Ray - ED: 1 View, Read by ED Physician, Chronic Changes and Left Effusion Diagnostic Testing: Clinical Impression(s) from Imaging Studies Chest X-Ray 05/10/22 14:30 IMPRESSION: Slight increase in the small left pleural effusion with left basilar infiltration and/or atelectasis. A stable blunting of the right costophrenic angle. Scattered calcified granulomas. Electronically Signed: Miguel Trejo MD at 14:47 EDT , EKG Initial EKG: Attestation: I personally reviewed and interpreted this EKG as follows: Interpretation: Sinus Rhythm Comments: T wave inversions V3-5, which are new. Slight ST elevation in lead V3 only without reciprocal changes. Nonspecific T wave flattening throughout all other leads on EKG. Prior EKG tracings: available for review Prior: Changed Discharge Plan Dx/Rx/DC Orders Clinical Impression: Chest pain, COPD exacerbation, Pleural effusion on left, Elevated troponin, Acute electrocardiogram changes Disposition Disposition: Acute Care Hospital [facility] Discharge Date/Time: 05/10/22 16:46
[2022-05-10] MEDS: Albuterol 2.5 MG/3 ML VIAL.NEB. INHALATION ×3 (14:17→15:37)
[2022-05-10 14:20] LABS: Absolute Lymphocyte Count 1.29 X10^3/uL (0.83-4.51); Absolute Neutrophil Count 11.8 X10^3/uL (2.0-7.7); Basophil# 0.04 X10^3/uL; Basophil% 0.3 % (0-1); Eosinophil# 0.01 X10^3/uL; Eosinophils% 0.1 % (0-5); Hematocrit 33.8 % (40-54); Hemoglobin 10.6 g/dL (13.0-16.5); Lymphocyte # 1.29 X10^3/ul (0.83-4.51); Lymphocyte % 9.2 % (19-41); Mean Corp Hgb Conc 31.4 g/dL (32-36); Mean Corpuscular Hgb 29.4 pg (27.0-32.0); Mean Corpuscular Volume 93.9 fL (80-94); Mean Platelet Vol. 8.8 fl (6.2-12.0); Monocyte# 0.65 X10^3/uL; Monocyte% 4.6 % (0-10); NRBC Flagged by Analyzer 0 % (0-5); Neutrophil # 11.78 X10^3/uL (2.7-7.7); Neutrophil % 84.2 % (47-70); Platelet Count 431 K/mm3 (150-450); RBC Distribution Width CV 17.2 % (11.6-14.6); RBC Distribution Width SD 58.5 fl (35.1-43.9)
--- NOTE | 2022-05-10 14:30 | RAD_ITS ---
STUDY: X-RAY CHEST REASON FOR EXAM: Male, 77 years old. Dyspnea TECHNIQUE: Single AP portable view of the chest. COMPARISON: Comparison is made with prior study dated 05/07/2022. FINDINGS: EKG electrodes are seen. Slight increase in the left pleural effusion and left basilar atelectasis and/or infiltration. Stable blunting of the right corresponding angle. Scattered calcified granulomas. Normal size heart. Normal mediastinum and lisa. Normal visualized pulmonary arteries. There is atherosclerotic calcification of the aortic arch with tortuosity. Normal visualized thoracic spine. Healed left clavicular fracture. There is no demonstrated abnormality of the visualized soft tissue structures of the upper abdomen. RAD/Chest 1 View (Portable) IMPRESSION: Slight increase in the small left pleural effusion with left basilar infiltration and/or atelectasis. A stable blunting of the right costophrenic angle. Scattered calcified granulomas. Electronically Signed: Miguel Trejo MD at 14:47 EDT ,
[2022-05-10 14:39] LABS: Anion Gap 8 (5-15); BUN 7 mg/dL (7-18); BUN/Creat Ratio 10.5 RATIO (10-20); Calcium,Total 7.9 mg/dL (8.5-10.1); Chloride 102 mmol/L (98-107); Creatinine, Serum 0.67 mg/dL (0.70-1.30); EST Glomerular Filtration Rate 122 mL/min (>60); Est Glom Filt Rate - Afr Amer 148 mL/min (>60); Estimated Creatinine Clearance 45.47 ml/min; Glucose 81 mg/dL (74-106); Potassium 3.3 mmol/L (3.5-5.1); Sodium Level 143 mmol/L (136-145); Troponin-I HS 156 pg/mL (3.0-78.0)
[2022-05-10] MEDS: Aspirin 81 MG TAB.CHEW 324 MG PO (15:33)
--- NOTE | 2022-05-10 16:03 | CM.ED ---
SAMIR called Jacob at [facility] and left voice mail message advising that patient is being admitted to acute. SAMIR had made referral to [facility] earlier this week. SAMIR will update SAMIR in Daily Report. Naomi GARCIA
--- NOTE | 2022-05-10 16:47 | HP.PCM.HOS_ITS ---
HPI - General General Date of Admission: 05/10/22 Date of Service: 05/10/22 Chief Complaint: Shortness of breath HPI Narrative LORI DUMONT, is a 77 M who presents to the emergency room at [facility] with complaints of shortness of breath, patient is a very poor informant, he has had a history of encephalopathy in the past from an unknown etiology-this examiner feels that the patient probably has an element of dementia. Work-up in the emergency room included a chest x-ray which showed a small left pleural effusion with left bibasilar infiltrate and/or atelectasis, patient's white blood cell count was 14,000, hemoglobin was 10.6, potassium was 3.3, troponin was elevated at 156, and beta natruretic peptide was elevated at 2824. Patient required oxygen at 3 L/min via nasal cannula to maintain his pulse ox above 90%, patient is EKG showed normal sinus rhythm with T wave changes over the precordial leads which appear new from a previous EKG. Patient's previous EKG on 04/29/2022 showed evidence of an old anterior septal infarct, on this EKG however the T waves were upright. I talked to the patient extensively about his left leg surgery, he does not appear to know who did his left leg surgery or where it was done. I talked to protective services social worker who stated that the patient was evicted from a motel and protective services social worker is trying to get him into assisted living. He evidently does not walk and the individual he lives with is not able to care for him. Patient will be admitted to PCU for hypoxia and elevated troponin, it is possible he may have an element of congestive heart failure-this is not indicated on the patient's chest x-ray however but his beta natruretic peptide is elevated. I have elected to place the patient on IV Lasix at a low dose and obtain an echocardiogram. Further note, patient appears to have had a history of left lower lobe lung cancer in the past-this was documented in his medical record. [facility] Medical History ABLA (acute blood loss anemia) Abnormal electrocardiogram Acute upper GI bleed Alcohol abuse Chronic pain Contusion of foot COPD (chronic obstructive pulmonary disease) CVA (cerebral vascular accident) Depression GERD (gastroesophageal reflux disease) Lung cancer Nicotine dependence Pneumonia Prostate cancer Secondary pulmonary arterial hypertension Transient ischemic attack Home Medications albuterol sulfate 90 mcg/actuation aerosol inhaler 1 puff inhalation Q4H PRN PRN Asthma 11/25/15 [History Last Taken 05/09/22] nitroglycerin 0.4 mg sublingual tablet 0.4 mg sublingual Q5-15M PRN chest pain #25 tabs 03/18/19 [History Last Taken 1 Week Ago ~05/03/22] zolpidem 5 mg tablet 5 mg PO QHS PRN Insomnia 02/28/22 [History Last Taken 05/09/22] budesonide-formoterol HFA 80 mcg-4.5 mcg/actuation aerosol inhaler (Symbicort) 2 puff inhalation BID copd 04/29/22 [History Last Taken 05/09/22] ipratropium bromide 17 mcg/actuation HFA aerosol inhaler (Atrovent HFA) 2 puff inhalation DAILY copd 04/29/22 [History Last Taken 05/09/22] metoprolol succinate 25 mg tablet,extended release 24 hr 25 mg PO DAILY bp 04/29/22 [History Last Taken 05/08/22] levothyroxine 25 mcg tablet 25 mcg PO DAILY thyroid 05/10/22 [History Last Taken Unknown] pantoprazole 40 mg tablet,delayed release (Protonix) 40 mg PO DAILY stomach [History Last Taken 05/08/22] potassium chloride 20 mEq tablet,extended release 20 meq PO BID supplement 05/10/22 [History Last Taken 05/08/22] Allergy/AdvReac Type Severity Reaction Status Date / Time No Known Allergies Allergy Verified 05/07/22 10:32 Family History Other Cancer Surgical History femoral artery repair History of bronchoscopy History of tonsillectomy Status post tendon repair Social History Smoking Status: Current every day smoker tobacco type: cigarettes alcohol intake: current alcohol intake frequency: 3 or more drinks per day Alcohol type: beer ROS ROS Narrative Review of system is unobtainable due to patient's mental status (confusion, poor informant) Vital Signs Vital Signs Vital Signs: 05/10/22 13:16 05/10/22 13:20 05/10/22 13:20 Temperature 98.5 F 98.5 F Temperature Source Temporal Temporal Pulse Rate 86 86 Respiratory Rate 20 H 18 Respiratory Effort Short of Breath Respiratory Depth Shallow Respiratory Pattern Normal Blood Pressure 135/58 H 135/58 H Blood Pressure Mean 83 83 Pulse Ox 100 100 Oxygen Delivery Method Nasal Cannula Nasal Cannula Nasal Cannula Oxygen Flow Rate (L/min) 2 2 2 05/10/22 14:17 05/10/22 14:17 05/10/22 14:14 Temperature Temperature Source Pulse Rate 79 79 Respiratory Rate 18 18 Respiratory Effort Respiratory Depth Respiratory Pattern Normal Blood Pressure 121/49 H Blood Pressure Mean 73 Pulse Ox 100 100 Oxygen Delivery Method Nasal Cannula Nasal Cannula Oxygen Flow Rate (L/min) 3 3 05/10/22 14:48 05/10/22 14:20 05/10/22 15:00 Temperature 97.9 F 98.9 F Temperature Source Temporal Oral Pulse Rate 79 94 88 Respiratory Rate 16 20 H 20 H Respiratory Effort Respiratory Depth Respiratory Pattern Normal Blood Pressure 148/78 H 138/78 H Blood Pressure Mean 101 98 Pulse Ox 94 97 Oxygen Delivery Method Nasal Cannula Nasal Cannula Oxygen Flow Rate (L/min) 2 2 05/10/22 15:37 05/10/22 16:31 05/10/22 16:31 Temperature 98.3 F 98.3 F Temperature Source Oral Oral Pulse Rate 81 83 83 Respiratory Rate 16 16 16 Respiratory Effort Respiratory Depth Respiratory Pattern Blood Pressure 108/49 L 108/49 L Blood Pressure Mean 68 68 Pulse Ox 100 100 Oxygen Delivery Method Nasal Cannula Nasal Cannula Oxygen Flow Rate (L/min) 3 3 Weight Weight: 53.666 kg Body Mass Index (BMI) 18.5 Physical Exam Const alert and no apparent distress Constitutional Narrative: Patient is cachectic, he looks frail and older than his stated age General Appearance: cooperative Orientation / Consciousness: awake, oriented to person and oriented to place HEENT normocephalic, head/scalp atraumatic, hearing grossly normal bilaterally and moist oral mucous membranes Eyes PERRL, EOMs intact bilaterally and conjunctivae normal Neck supple, no JVD, thyroid normal and no carotid bruits General: trachea midline Resp normal respiratory effort, no retractions and no use of accessory muscles Resp Narrative: Breath sounds are distant bilaterally Auscultation: Negative for rales, rhonchi or wheezes Cardio regular rate, regular rhythm, S1 normal heart sound, S2 normal heart sound, no murmurs, no rub and no gallops GI normal to inspection, nondistended, normoactive bowel sounds, soft to palpation, non-tender and non-distended Extremity Extremity Narrative: There is evidence of recent surgery noted over the left lower leg with long incisions over the lateral and medial aspect of the left lower leg, there is also sutures in place on the dorsum of the patient's left foot, these areas do not appear to be inflamed or show evidence of discharge. Skin Skin Narrative: There are surgical scars noted over the patient's left lower leg as described above Neuro CN's II-XII intact bilaterally and no sensory deficits noted Neuro Narrative: Patient appears to have left foot drop Sensorium / Orientation: awake, alert, oriented to person and oriented to place Speech: speech normal Psych Psych Narrative: Patient exhibits confusion and answers occasional questions appropriately Results Lab / Micro Data Result Diagrams: 05/10/22 13:05 05/10/22 13:05 Labs: Laboratory Results - last 24 hr 05/10/22 13:05: WBC 14.0 H, RBC 3.60 L, Hgb 10.6 L, Hct 33.8 L, MCV 93.9, MCH 29.4, MCHC 31.4 L, RDW Std Deviation 58.5 H, RDW Coeff of Esther 17.2 H, Plt Count 431, MPV 8.8, Immature Gran % (Auto) 1.600 H, Neut % (Auto) 84.2 H, Lymph % (Auto) 9.2 L, [place] % (Auto) 4.6, Eos % (Auto) 0.1, Baso % (Auto) 0.3, Absolute Neuts (auto) 11.8 H, Absolute Lymphs (auto) 1.29, Nucleated RBC % 0 05/10/22 13:05: Sodium 143, Potassium 3.3 L, Chloride 102, Carbon Dioxide 33.0 H , Anion Gap 8, BUN 7, Creatinine 0.67 L, Estim Creat Clear Calc 45.47, Est GFR (MDRD) Af Amer 148, Est GFR (MDRD) Non-Af 122, BUN/Creatinine Ratio 10.5, Glucose 81, Calcium 7.9 L, Troponin I High Sens 156 H* 05/10/22 13:05: B-Natriuretic Peptide 2824.3 H Micro: Microbiology 05/10/22 14:10 Nasal Secretion SARS-CoV-2 Antigen (Rapid) - Final Radiology Impression Chest X-Ray 05/10/22 14:30 IMPRESSION: Slight increase in the small left pleural effusion with left basilar infiltration and/or atelectasis. A stable blunting of the right costophrenic angle. Scattered calcified granulomas. Electronically Signed: Miguel Trejo MD at 14:47 EDT , Assessment & Plan Assessment/Plan (1) Dyspnea on exertion: PLAN: Plan 1. Hypoxia-probably secondary to chronic obstructive pulmonary disease with a possible overlay of CHF (patient's beta natruretic peptide is over 2000)-patient will be admitted to PCU, IV Lasix will be administered at 20 mg every 12 hours, patient will have an echocardiogram done tomorrow, he will be placed on aerosol treatments, pulse ox will be monitored. #2 elevated troponin-etiology unclear, patient will have cardiac enzymes cycled, he may need to be seen in consultation by cardiology if his enzymes elevate. #3 self-neglect/? Dementia-I do not feel the patient is safe to live by himself, he appears to be having minimal help from his significant other, protective services social worker will need to be involved for either residential placement or placement in an assisted living facility if available. #4 chronic obstructive pulmonary disease-patient will be placed on DuoNeb aerosols, patient states he is still smoking #5 peripheral vascular disease with recent left lower leg vascular surgery- patient appears to been in the hospital emergency room here in March of this year with an ischemic left foot and was transferred to [facility] in [place] for further treatment. I will have the sutures removed from the top of the patient's left foot, the sutures probably have been in for a month. #6 severe protein and caloric malnutrition-this is most probably from self- neglect, patient will be seen by nutritional services #7 past history of left lower lobe lung cancer-there is an abnormal area on the patient's chest x-ray over the left lower lung field, I do not think this is a pneumonia, this may be where the patient previously had lung cancer. #8 hypokalemia-patient will be given oral potassium, labs will be monitored #9 hypothyroidism-patient is on Synthroid, it is unknown if he is compliant with this. Charges/Coding Visit Charges Inpatient E&M: 28843 Init Hosp L3
--- NOTE | 2022-05-10 17:26 | ECHOD_ITS ---
Reason For Study: DYSPNEA Procedure This was a 2D Doppler, Color Flow transthoracic echocardiogram. Exam performed portable in patient room. Left Ventricle Mildly dilated left ventricle. The estimated ejection fraction is 40-45 %. Right Ventricle Normal right ventricle. Normal systolic function. Atria The left atrium is mildly enlarged. The right atrium is mildly enlarged. Mitral Valve Bileaflet diffuse mitral valve thickening. Mild (1+) mitral valve insufficiency. Tricuspid Valve Normal tricuspid valve. Mild tricuspid valve insufficiency. Aortic Valve Mild focal aortic valve calcification. Mild (1+) aortic valve insufficiency. Pulmonic Valve The pulmonic valve is not well visualized. Great Vessels Moderately dilated aortic root. Pericardium/Pleural No pericardial effusion. MMode/2D Measurements & Calculations LVIDd: 5.1 cm IVSd: 0.79 cm Ao root diam: 4.3 cm LVIDs: 2.8 cm LVPWd: 0.67 cm RVDd: 2.5 cm FS: 43.9 % LAV(MOD-bp): 50.5 ml LVAd ap4: 24.6 cm2 SV(MOD-sp4): 43.6 ml LAV(MOD-bp) Indexed: 32.1 ml/m2 LVLd ap4: 7.8 cm LAV(MOD-sp2): 61.3 ml EDV(MOD-sp4): 63.3 ml LAV(MOD-sp4): 36.4 ml EDV(sp4-el): 66.0 ml LVAs ap4: 12.4 cm2 LVLs ap4: 6.3 cm ESV(MOD-sp4): 19.7 ml ESV(sp4-el): 20.6 ml EF(MOD-sp4): 68.9 % EF(sp4-el): 68.7 % SV(sp4-el): 45.3 ml LA A4 area: 15.0 cm2 LA dimension(2D): 3.3 cm RA A4 area: 12.6 cm2 Time Measurements MV dec time: 0.26 sec Doppler Measurements & Calculations MV E max didier: 89.4 cm/sec Lat Peak E' Didier: 6.8 cm/sec Med Peak E' Didier: 5.0 cm/sec MV A max didier: 116.5 cm/sec E/E' lat: 13.2 E/E' med: 18.0 MV E/A: 0.77 MV V2 max: 120.9 cm/sec Ao V2 max: 128.4 cm/sec MV max P.9 mmHg MV dec slope: 344.1 cm/sec2 Ao max P.6 mmHg MV V2 mean: 82.7 cm/sec Ao V2 mean: 89.2 cm/sec MV mean P.9 mmHg Ao mean P.7 mmHg MV V2 VTI: 32.0 cm Ao V2 VTI: 27.8 cm LV V1 max: 123.1 cm/sec PA V2 max: 120.3 cm/sec LV V1 max P.1 mmHg PA V2 mean: 86.3 cm/sec LV V1 mean P.2 mmHg LV V1 mean: 84.0 cm/sec LV V1 VTI: 24.1 cm ECHO/Echo Complete Interpretation Summary The estimated ejection fraction is 40-45 %. Reduced LV systolic function in comparison to previous echo in 2019 Ordering Physician: Wilson Carrion Referring Physician: Pedro Jaime M.D. Performed By: Makayla Wayne RCS
[2022-05-10] MEDS: Potassium Chloride Oral Tablet 20 MEQ 40 MEQ PO (17:47)
[2022-05-10] MEDS: Furosemide 20 MG/2 ML VIAL IV (17:47)
[2022-05-10] MEDS: Ipratropium/Albuterol Sulfate 3 ML AMPUL.NEB INHALATION (19:27)
[2022-05-10 19:38] LABS: Troponin-I HS 130 pg/mL (3.0-78.0)
[2022-05-10] MEDS: Zolpidem Tartrate 5 MG Tablet PO (21:30)
[2022-05-10] MEDS: Potassium Chloride Oral Tablet 20 MEQ PO (21:36)
[2022-05-10] MEDS: Heparin Injection (Vial) 5,000 UNIT/ML VIAL 5000 UNIT SC (21:36)
[2022-05-11] VITALS (29 sets, daily range): BP systolic 90–125; BP diastolic 42–60; PULSE 66–141; RESP 18–23; TEMP 36.3–37.3; O2SAT 96–100
[2022-05-11] MEDS: Sertraline 50 MG Tablet PO ×2 (00:08→21:49)
[2022-05-11] MEDS: Ipratropium/Albuterol Sulfate 3 ML AMPUL.NEB INHALATION ×3 (00:15→19:48)
[2022-05-11] MEDS: Rizatriptan Benzoate 5 MG Tablet PO (00:20)
--- NOTE | 2022-05-11 00:52 | CT_ITS ---
We are attempting to reach an attending provider to discuss findings. An addendum with communication details will be sent when the communication is complete. STUDY: CTA OF THE ABDOMINAL AORTA AND BILATERAL LOWER EXTREMITIES REASON FOR EXAM: Male, 77 years old. Ischemic left foot RADIATION DOSAGE (If Supplied By Facility): CTDIvol = ( 3.70 ) mGy, DLP = ( 867.86 ) mGycm TECHNIQUE: Axial CT angiography multi-detector data acquisition was obtained from the to the following intravenous administration of IV 100mL Isovue-370. Axial images and MIP images were reconstructed from the axial data set. Post-processing of the angiographic images was performed, with multiplanar reformation and 3D reconstruction. Individualized dose optimization techniques were used for this CT. TECHNICAL QUALITY: Good COMPARISON: None. Descriptors of Narrowing: None (0%) Mild (< 50%) Moderate (50-70%) Severe (70-90%) Subtotal/Total Occlusion (90-100%) Non-Evaluable (technically non-diagnostic FINDINGS: Abdominal aorta: There is mild diffuse narrowing. Celiac and superior mesenteric arteries: There is mild diffuse narrowing. Inferior mesenteric artery: There is mild diffuse narrowing. Right renal artery(arteries): There is mild diffuse narrowing. Left renal artery(arteries): There is moderate diffuse narrowing. Right common iliac artery: There is moderate diffuse narrowing. Right external iliac artery: There is moderate diffuse narrowing. Right internal iliac artery: There is moderate diffuse narrowing. Left common iliac artery: There is moderate diffuse narrowing. Left external iliac artery: There is moderate diffuse narrowing. Left internal iliac artery: There is moderate diffuse narrowing. RIGHT LOWER EXTREMITY Right common femoral artery: There is mild diffuse narrowing. Right profundus femoris: There is mild diffuse narrowing. Right superficial femoral: There is moderate diffuse narrowing. Right popliteal artery: There is mild diffuse narrowing. Right tibioperoneal trunk: There is mild diffuse narrowing. Right anterior tibial artery: There is mild diffuse narrowing, with visualization of the vessel to the distal calf. Right posterior tibial artery: There is moderate diffuse narrowing, with visualization of the vessel to the proximal calf. Right peroneal artery: There is mild diffuse narrowing, with visualization of the vessel to the distal calf. LEFT LOWER EXTREMITY Left common femoral artery: There is moderate diffuse narrowing. Left profundus femoris: There is mild diffuse narrowing. Left superficial femoral: Occluded Left popliteal artery: Occluded Left tibioperoneal trunk: Occluded. Left anterior tibial artery: Occluded bypass graft. Left posterior tibial artery: Occluded. Left peroneal artery: Occluded. Cholelithiasis. Sigmoid diverticulosis. Small bilateral pleural effusions. CT/CTA Abd w/Runoff W/WO Contrast IMPRESSION: There is occlusion of the left superficial femoral artery at its origin. Occluded left tibioperoneal trunk, left anterior tibial artery, left posterior tibial artery and left peroneal artery: 50 % stenosis at the origin of the left renal artery. Cholelithiasis. Sigmoid diverticulosis. Small bilateral pleural effusions. Electronically Signed: Lonnie Mcmahan MD at 2:54 EDT ,
--- NOTE | 2022-05-11 02:26 | CON.PCM.SX_ITS ---
Assessment & Plan Assessment/Plan (1) Popliteal artery occlusion, left: PLAN: -he is about 1 month out from salvage attempt with early thrombosis -complicating medical conditions, particularly GI bleed that has not been fully investigated -duration/severity of current ischemia make foot unsalvageable -CTA images reviewed; has iliac and common/profunda femoral vessels open, otherwise no flow visualized LLE -given complicating co-morbid conditions, degree/duration of ischemia, recent high risk failed revascularization efforts he is not a candidate for repeat revascularization efforts -had lengthy discussion about his current situation and prognosis for left leg; ultimately will need an above knee amputation but can address medical issues first -patient understands and seems agreeable to further discussion in future this admission for amputation planning HPI Consult Data Date of Consult: 05/11/22 HPI Narrative HPI Narrative: LORI DUMONT, is a 77 M who presents with increasing SOB and elevated troponins. Has complex recent medical/surgical history beginning with acute limb ischemia of LLE 04/04/22 which required emergent attempted thromebectomy and ultimately a popliteal-DP bypass with PTFE at [facility]. He also developed a.fib at that time and was discharged on Xarelto in [place]. He presented here about 2 weeks ago with dark stools and Hgb of 6.5. He declined the recommended endoscopy and was going to pursue as an outpatient. He has since returned to ED with respiratory issues and generalized weakness/falls. He has had persistent issues with his left foot throughout this time but is unable to elaborate. Today his SOB worsened so he presented to ED again. He also states that at noon 15 when he woke up from the night that his left foot was completely paralyzed and without sensation. He also has had foot drop since about same time. He is not certain if these have been present for longer than that or if foot drop/numbness/paralysis contributing to his falling. [facility] Medical History (Updated 05/11/22 @ 02:[address] Bhupinder Townsend MD) ABLA (acute blood loss anemia) Abnormal electrocardiogram Acute upper GI bleed Alcohol abuse Chronic pain Contusion of foot COPD (chronic obstructive pulmonary disease) CVA (cerebral vascular accident) Depression GERD (gastroesophageal reflux disease) Lung cancer Nicotine dependence Pneumonia Prostate cancer Secondary pulmonary arterial hypertension Transient ischemic attack Home Medications albuterol sulfate 90 mcg/actuation aerosol inhaler 1 puff inhalation Q4H PRN PRN Asthma 11/25/15 [History Last Taken 05/09/22] nitroglycerin 0.4 mg sublingual tablet 0.4 mg sublingual Q5-15M PRN chest pain #25 tabs 03/18/19 [History Last Taken 1 Week Ago ~05/03/22] zolpidem 5 mg tablet 5 mg PO QHS PRN Insomnia 02/28/22 [History Last Taken 05/09/22] budesonide-formoterol HFA 80 mcg-4.5 mcg/actuation aerosol inhaler (Symbicort) 2 puff inhalation BID copd 04/29/22 [History Last Taken 05/09/22] ipratropium bromide 17 mcg/actuation HFA aerosol inhaler (Atrovent HFA) 2 puff inhalation DAILY copd 04/29/22 [History Last Taken 05/09/22] metoprolol succinate 25 mg tablet,extended release 24 hr 25 mg PO DAILY bp [History Last Taken 05/08/22] levothyroxine 25 mcg tablet 25 mcg PO DAILY thyroid 05/10/22 [History Last Taken Unknown] pantoprazole 40 mg tablet,delayed release (Protonix) 40 mg PO DAILY stomach 05/10/22 [History Last Taken 05/08/22] potassium chloride 20 mEq tablet,extended release 20 meq PO BID supplement 05/10/22 [History Last Taken 05/08/22] sertraline 50 mg tablet 50 mg PO DAILY anxiety 05/10/22 [History Last Taken Unknown] sumatriptan succinate 25 mg tablet 25 mg PO DAILY PRN Migraine Headache 05/10/22 [History Last Taken Unknown] Allergy/AdvReac Type Severity Reaction Status Date / Time No Known Allergies Allergy Verified 05/07/22 10:32 Family History Other Cancer Surgical History femoral artery repair History of bronchoscopy History of tonsillectomy Status post tendon repair Social History Smoking Status: Current every day smoker tobacco type: cigarettes alcohol intake: current alcohol intake frequency: 3 or more drinks per day Alcohol type: beer ROS Constitutional Constitutional: Reports frequent falls, lethargy and weakness Eyes Eyes: Denies loss of vision Cardiovascular Cardiovascular: Reports bluish discoloration of hand/feet, cold extremities, dyspnea on exertion, irregular heart rhythm, leg ulcers, numbness in extremities and weakness in extremities; Denies abdominal pain, chest pain with activity, claudication, cyanosis, erythema on extremities or leg edema Respiratory/Chest Respiratory/Chest: Reports shortness of breath at rest and shortness of breath with exertion; Denies cough, excessive phlegm production or wheezing Gastrointestinal Gastrointestinal: Reports change in stool character and melena; Denies rectal bleeding Genitourinary Genitourinary: Denies dysuria or hematuria Musculoskeletal Musculoskeletal: Reports abnormal gait Integumentary Integumentary: Reports other Details: recent surgical incisions healing poorly ; Denies erythema or non-healing lesions Neurologic Neurologic: Reports focal weakness, numbness and sensory deficit; Denies abnormal speech, headache(s) or loss of vision Hematologic/Lymphatic Hematologic/Lymphatic: Denies easy bleeding, easy bruising or lymphadenopathy Physical Exam Const alert, oriented x3 and no apparent distress; Negative for healthy appearing General Appearance: cooperative; Negative for combative or lethargic Orientation / Consciousness: awake Exam Limitations: no limitations Nutritional Appearance: cachectic HEENT Head and Scalp: normocephalic and atraumatic Eyes EOMs intact bilaterally General Eye: normal appearance of both eyes Neck full ROM and no lymphadenopathy General: trachea midline Lymph Lymphatic: Negative for no lymphadenopathy noted Resp normal respiratory effort and no use of accessory muscles Effort and Inspection: Negative for labored, stridor or audible wheezes Cardio regular rate Cardio Narrative: Right- palpable femoral, monophasic PT, biphasic DP Left- palpable femoral, absent signals popliteal/DP/PT Bilateral radial/brachial 1+ Rhythm: abnormal rhythm irregularly irregular Peripheral Pulses: brachial pulses present, radial pulses present and femoral pulses present GI non-tender and non-distended Back/Spine Cervical Spine: cervical ROM normal Extremity full ROM and no pedal edema; Negative for normal capillary refill Skin no rashes or lesions noted and No no wounds Skin Narrative: multiple surgical incisions; left femoral with exudate but no purulence/er ythema; dorsum of foot incision inert appearing with no obvious infection Neuro oriented x3 and CN's II-XII intact bilaterally Neuro Narrative: Left foot asensate, paralyzed Psych thought process normal, cooperative, affect normal, speech normal and activity/motor behavior normal Lab / Micro Data Result Diagrams: 05/10/22 13:05 05/10/22 13:05 Labs: Laboratory Results - last 24 hr 05/10/22 13:05: WBC 14.0 H, RBC 3.60 L, Hgb 10.6 L, Hct 33.8 L, MCV 93.9, MCH 29.4, MCHC 31.4 L, RDW Std Deviation 58.5 H, RDW Coeff of Esther 17.2 H, Plt Count 431, MPV 8.8, Immature Gran % (Auto) 1.600 H, Neut % (Auto) 84.2 H, Lymph % (Auto) 9.2 L, [place] % (Auto) 4.6, Eos % (Auto) 0.1, Baso % (Auto) 0.3, Absolute Neuts (auto) 11.8 H, Absolute Lymphs (auto) 1.29, Nucleated RBC % 0 05/10/22 13:05: Sodium 143, Potassium 3.3 L, Chloride 102, Carbon Dioxide 33.0 H , Anion Gap 8, BUN 7, Creatinine 0.67 L, Estim Creat Clear Calc 45.47, Est GFR (MDRD) Af Amer 148, Est GFR (MDRD) Non-Af 122, BUN/Creatinine Ratio 10.5, Glucose 81, Calcium 7.9 L, Troponin I High Sens 156 H* 05/10/22 13:05: B-Natriuretic Peptide 2824.3 H 05/10/22 19:00: Troponin I High Sens 130 H* Micro: Microbiology 05/10/22 14:10 Nasal Secretion SARS-CoV-2 Antigen (Rapid) - Final Radiology Impression Chest X-Ray 05/10/22 14:30 IMPRESSION: Slight increase in the small left pleural effusion with left basilar infiltration and/or atelectasis. A stable blunting of the right costophrenic angle. Scattered calcified granulomas. Electronically Signed: Miguel Trejo MD at 14:47 EDT , Charges/Coding Visit Charges Inpatient E&M: 55138 Init Hosp L3
--- NOTE | 2022-05-11 02:29 | EKG12_ITS ---
Test Reason : stat ekg Blood Pressure : / mmHG Vent. Rate : 078 BPM Atrial Rate : 078 BPM P-R Int : 148 ms QRS Dur : 102 ms QT Int : 474 ms P-R-T Axes : 065 -26 202 degrees QTc Int : 540 ms Normal sinus rhythm Low voltage QRS (Limb Leads) Anteroseptal infarct , age undetermine, cannot be excluded Abnormal ECG Confirmed by ASHOK FLOWERS, LE ([id number]), art editor MP ARELLANO ([id number]) on 05/14/2022 10:30:32 AM Referred By: Confirmed By:LE PULIDO MD
[2022-05-11] MEDS: Levothyroxine 25 MCG TABLET PO (05:28)
[2022-05-11 05:54] LABS: Absolute Lymphocyte Count 0.72 X10^3/uL (0.83-4.51); Basophil# 0.02 X10^3/uL; Basophil% 0.2 % (0-1); Eosinophil# 0.02 X10^3/uL; Eosinophils% 0.2 % (0-5); Hematocrit 28.7 % (40-54); Hemoglobin 8.9 g/dL (13.0-16.5); Lymphocyte # 0.72 X10^3/ul (0.83-4.51); Lymphocyte % 6.9 % (19-41); Mean Corpuscular Hgb 29.3 pg (27.0-32.0); Mean Corpuscular Volume 94.4 fL (80-94); Mean Platelet Vol. 8.5 fl (6.2-12.0); Monocyte# 0.51 X10^3/uL; Monocyte% 4.9 % (0-10); NRBC Flagged by Analyzer 0 % (0-5); Neutrophil % 86.5 % (47-70); Platelet Count 295 K/mm3 (150-450); RBC Distribution Width CV 17.2 % (11.6-14.6); Red Blood Count 3.04 M/mm3 (4.6-6.2); White Blood Count 10.4 K/mm3 (4.4-11.0)
[2022-05-11 06:18] LABS: Anion Gap 7 (5-15); BUN 7 mg/dL (7-18); BUN/Creat Ratio 11.7 RATIO (10-20); Calcium,Total 7.3 mg/dL (8.5-10.1); Chloride 104 mmol/L (98-107); EST Glomerular Filtration Rate 138 mL/min (>60); Est Glom Filt Rate - Afr Amer 167 mL/min (>60); Estimated Creatinine Clearance 42.66 ml/min; Glucose 69 mg/dL (74-106); Potassium 3.3 mmol/L (3.5-5.1); Sodium Level 143 mmol/L (136-145)
--- NOTE | 2022-05-11 08:43 | PN.HOSP_ITS ---
Subjective Subjective Is that he is going to be compliant and listen. Objective Data Objective Data Vital Signs: Vital Signs Temp Pulse Resp BP Pulse Ox O2 Del Method O2 Flow Rate 36.3 C L 76 18 125/56 H 100 Room Air 3 05/11/22 05:00 05/11/22 06:51 05/11/22 05:00 05/11/22 05:00 05/11/22 05:00 05/11/22 06:04 05/11/22 06:04 Oxygen Flow Rate (L/min) 3 Oxygen Delivery Method Room Air Weight: 50.349 kg Body Mass Index (BMI) 17.4 Intake & Output: Intake and Output for Last 24 Hours 05/09/22 05/10/22 05/11/22 23:59 23:59 23:59 Intake Total 840 / 840 Output Total 0 / 0 300 / 300 Balance 840 / 840 -300 / -300 Lab / Micro Data Result Diagrams: 05/11/22 05:21 05/11/22 05:21 Labs: Laboratory Results - last 24 hr 05/10/22 13:05: WBC 14.0 H, RBC 3.60 L, Hgb 10.6 L, Hct 33.8 L, MCV 93.9, MCH 29.4, MCHC 31.4 L, RDW Std Deviation 58.5 H, RDW Coeff of Esther 17.2 H, Plt Count 431, MPV 8.8, Immature Gran % (Auto) 1.600 H, Neut % (Auto) 84.2 H, Lymph % (Auto) 9.2 L, [place]upe % (Auto) 4.6, Eos % (Auto) 0.1, Baso % (Auto) 0.3, Absolute Neuts (auto) 11.8 H, Absolute Lymphs (auto) 1.29, Nucleated RBC % 0 05/10/22 13:05: Sodium 143, Potassium 3.3 L, Chloride 102, Carbon Dioxide 33.0 H , Anion Gap 8, BUN 7, Creatinine 0.67 L, Estim Creat Clear Calc 45.47, Est GFR (MDRD) Af Amer 148, Est GFR (MDRD) Non-Af 122, BUN/Creatinine Ratio 10.5, Glucose 81, Calcium 7.9 L, Troponin I High Sens 156 H* 05/10/22 13:05: B-Natriuretic Peptide 2824.3 H 05/10/22 19:00: Troponin I High Sens 130 H* 05/11/22 05:21: WBC 10.4, RBC 3.04 L, Hgb 8.9 L, Hct 28.7 L, MCV 94.4 H, MCH 29.3, MCHC 31.0 L, RDW Std Deviation 58.0 H, RDW Coeff of Esther 17.2 H, Plt Count 295, MPV 8.5, Immature Gran % (Auto) 1.300 H, Neut % (Auto) 86.5 H, Lymph % (Auto) 6.9 L, [place]upe % (Auto) 4.9, Eos % (Auto) 0.2, Baso % (Auto) 0.2, Absolute Neuts (auto) 9.0 H, Absolute Lymphs (auto) 0.72 L, Nucleated RBC % 0 05/11/22 05:21: Sodium 143, Potassium 3.3 L, Chloride 104, Carbon Dioxide 32.0, Anion Gap 7, BUN 7, Creatinine 0.60 L, Estim Creat Clear Calc 42.66, Est GFR (MDRD) Af Amer 167, Est GFR (MDRD) Non-Af 138, BUN/Creatinine Ratio 11.7, Glucose 69 L, Calcium 7.3 L Micro: Microbiology 05/10/22 14:10 Nasal Secretion SARS-CoV-2 Antigen (Rapid) - Final Radiography Diagnostic Testing: Radiology Impression Chest X-Ray 05/10/22 14:30 IMPRESSION: Slight increase in the small left pleural effusion with left basilar infiltration and/or atelectasis. A stable blunting of the right costophrenic angle. Scattered calcified granulomas. Electronically Signed: Miguel Trejo MD at 14:47 EDT , Abdomen/Pelvis CTA 05/11/22 00:52 IMPRESSION: There is occlusion of the left superficial femoral artery at its origin. Occluded left tibioperoneal trunk, left anterior tibial artery, left posterior tibial artery and left peroneal artery: 50 % stenosis at the origin of the left renal artery. Cholelithiasis. Sigmoid diverticulosis. Small bilateral pleural effusions. Electronically Signed: Lonnei Mcmahan MD at 2:54 EDT , ADDENDUM: 05/11/22 0456 IMPRESSION: There is occlusion of the left superficial femoral artery at its origin. Occluded left tibioperoneal trunk, left anterior tibial artery, left posterior tibial artery and left peroneal artery: 50 % stenosis at the origin of the left renal artery. Cholelithiasis. Sigmoid diverticulosis. Small bilateral pleural effusions. N.B. : The above Results were Read Back by Lonnie Mcmahan MD to Billie Chisholm NP, and understanding confirmed on 05/11/2022 04:49:57 (ET). Electronically Signed: Lonnie Mcmahan MD at 2:54 EDT , Physical Exam Const Constitutional Narrative: Cachectic. Appears much older than stated age. HEENT head/scalp atraumatic HEENT Narrative: Temporal wasting Resp normal respiratory effort, no retractions, no use of accessory muscles and clear to auscultation bilaterally Cardio regular rate, regular rhythm, S1 normal heart sound and S2 normal heart sound GI normal to inspection, nondistended, normoactive bowel sounds, soft to palpation, non-tender and non-distended Extremity Extremity Narrative: dusky LLL with faint pulse Psych affect normal Assessment & Plan Assessment/Plan (1) (HFpEF) heart failure with preserved ejection fraction: PLAN: Acute exacerbation EF 60% on echo from 03/26/19 on IV furosemide continue metoprolol succinate (2) PAD (peripheral artery disease): PLAN: CTA A/P: There is occlusion of the left superficial femoral artery at its origin. Occluded left tibioperoneal trunk, left anterior tibial artery, left posterior tibial artery and left peroneal artery: 50 % stenosis at the origin of the left renal artery. Vascular consult: pt is not a candidate for repeat revascularization. Eventually, pt will need L AKA. (3) GI bleed: PLAN: Saw GI earlier this month Hold anticoagulation and antiplatelets Pt declined endoscopy earlier this month. Will need to be evaluated prior to DIONICIO MCLAIN Dr. Friend who will see patient in consultation. Pt will need to be optimized from cardiac standpoint prior to endoscopy. (4) Atrial fibrillation with RVR: PLAN: Start diltiazem gtt check echocardiogram (5) Elevated troponin: PLAN: maybe type II event troponins trending down echo repeat stress when stable (last was in 2019 and was normal then) (6) Failure to thrive: PLAN: Due to patient's life decisions and refusal to follow with instructions and leave AGAINST MEDICAL ADVICE. I had a very long conversation with the patient and emphasized that he ultimately makes the decisions and if he does not want our help then that is his decision and then if that is the case then I would recommend hospice for him. He states that he does not want medical treatment, including an amputation and what ever testing would need to be done b eforehand. I told him that he is unlikely to go to an assisted living after all of this is said and done given all the changes that could occur, including an amputation. He would require therapy and medical treatment to be more medically optimized to go to an assisted living. Once again emphasized that he does not have to do any this and emphasized that we are here to try to help him but he would need to help himself in leaving AGAINST MEDICAL ADVICE would not be helping his situation again. (7) Protein calorie malnutrition: PLAN: Nutrition consulted and recommending continue with regular diet and fortified food as able. Check milk with meals, Magic cup with lunch and dinner Complicates care and recovery PLAN: Plan Chronic conditions * chronic obstructive pulmonary disease-patient will be placed on DuoNeb aer osols, patient states he is still smoking * past history of left lower lobe lung cancer-there is an abnormal area on the patient's chest x-ray over the left lower lung field, I do not think this is a pneumonia, this may be where the patient previously had lung cancer. * hypothyroidism-patient is on Synthroid, it is unknown if he is compliant with this. VTE prophylaxis with SCDs. Greater than 45 minutes of which greater than 50% of time was counseling the patient about medical and surgical treatment, long-term outlook, emphasizing his ability to make decisions but also that he would need to except consequences of his decisions and also emphasizing the decisions that he has made has been very bad for his health and wellbeing, and also discussing comfort measures and hospice. Charges/Coding Visit Charges Inpatient E&M: 00666 Subs Hosp L3
[2022-05-11] MEDS: Heparin Injection (Vial) 5,000 UNIT/ML VIAL 5000 UNIT SC ×2 (09:01→21:49)
[2022-05-11] MEDS: Potassium Chloride Oral Tablet 20 MEQ PO ×2 (09:01→21:49)
[2022-05-11] MEDS: Pantoprazole Sodium 40 MG Tablet PO (09:01)
[2022-05-11] MEDS: Furosemide 20 MG/2 ML VIAL IV ×2 (09:02→17:10)
[2022-05-11] MEDS: Metoprolol(XL)Succ 25 MG Tablet PO (09:02)
[2022-05-11] MEDS: 0.9% Saline Lock 10 ML Syringe IV ×2 (09:02→17:10)
--- NOTE | 2022-05-11 09:17 | CASEMGMT ---
SAMIR noted patient has a pillowcase cleaner with [facility], Tete Fraser. SW called [facility] coverage line and spoke with Jadyn letting her know about admission. Patient's services are as follows: Patient gets 7 meals delivered a week by [employer], lifeline button from [employer], and home health aides through [facility] 2 hours a day. Tete's contact number is [phone]. SAMIR will continue to follow as reports have been made to Adult Protective Services, patient is living in a hotel, not caring for himself, and this admission will likely end up with an above the knee amputation. Patient has been to [facility] in the past but left AMA. Patient has left the hospital AMA a handful of times as well. Patient's significant other is unable to care for patient. Dhara EM
--- NOTE | 2022-05-11 10:26 | CASEMGMT ---
Patient does not have a Healthcare Power of [place] [employer] or Healthcare Living Will. Per admission questions patient does not want documents. Dhara EM
--- NOTE | 2022-05-11 11:00 | CASEMGMT ---
RN CM LOCKSTITCH FRONT EDGE TAPE SEWER CM to room to meet with patient for initial transition planning/care coordination assessment. RN CM introduced self and role at [facility]. Pt voices understanding and consents to assessment at this time. Pt resting in bed in no distress at this time. Pt is A/O at this time and able to answer most questions, but did refer RN CM to talk w/his sig other, Nathen (who he states goes by Reyna), for further information, stating he was not able to remember certain things. PCP, pharmacy, and demographics verified/updated at this time. Towards end of assessment, RN came into room stating pt's HR was elevated and she had come in to assess pt. RN CM informed pt that any further information could be obtained at a later time. PCP: Dr Jaime. Specialists: Pt states he has been to some, but he does not remember their names except for Dr Fraser, nephrology. He states Reyna would know this information. Preferred Pharmacy:[facility] Insurance: [facility] dual, [employer] Prescription Benefit: Yes Living Will/HPOA: Pt does not currently have LW/HCPOA. He states he would like to have his Sig other, Nathen Valverde (Reyna), be his HPOA. Dhara DAWSON, made aware. LNOK: Pt states he has 2 sons and a daughter but he has not seen them for over 60 yrs. He has a sister, Naomi Figueredo, who he does keep in touch with. As stated above, he would like his sig other, Nathen (Reyna) to be his HPOA. Living Arrangements: Pt states he has been staying in the [address] [place] with Nathen. He states he has washing up in the hotel and able to do this and dress himself, but [employer] does most other tasks for him, such as meals medication mgmt. Transportation: Neither pt nor Nathen drive. Pt states they both have power W/C's that they ride around on in town to go places. He states if it is too far to get in the W/C, they will get a cab. DME: Power W/C. Pt states he is unsure what other DME he has in @ the hotel. HHC/SNF: [facility] where he left AMA from. PLAN: TBD by course of treatment and pt's progress. DGiauque BSN RN CM
--- NOTE | 2022-05-11 11:10 | EKG12_ITS ---
Test Reason : tachycardia Blood Pressure : / mmHG Vent. Rate : 134 BPM Atrial Rate : 000 BPM P-R Int : 000 ms QRS Dur : 108 ms QT Int : 352 ms P-R-T Axes : 000 -09 209 degrees QTc Int : 525 ms Atrial fibrillation with rapid ventricular response Septal infarct , age undetermined ST & T wave abnormality, consider anterolateral ischemia Abnormal ECG When compared with ECG of 11-MAY-2022 03:18, MANUAL COMPARISON REQUIRED, DATA IS UNCONFIRMED Confirmed by RADHA FLOWERS, TERRANCE ([id number]), digital editor LORETO MAGANA ([id number]) on 05/14/2022 1:57:08 PM Referred By: Confirmed By:TERRANCE GARCIA MD
[2022-05-11] MEDS: dilTIAZem 25 MG/5 ML Vial 10 MG IV BOLUS (12:34)
--- NOTE | 2022-05-11 13:51 | EKG12_ITS ---
Test Reason : afib convert Blood Pressure : / mmHG Vent. Rate : 127 BPM Atrial Rate : 000 BPM P-R Int : 000 ms QRS Dur : 108 ms QT Int : 374 ms P-R-T Axes : 000 054 246 degrees QTc Int : 543 ms Atrial fibrillation with rapid ventricular response Septal infarct , age undetermined ST & T wave abnormality, consider inferior ischemia ST & T wave abnormality, consider anterolateral ischemia Abnormal ECG When compared with ECG of 11-MAY-2022 11:14, MANUAL COMPARISON REQUIRED, DATA IS UNCONFIRMED Confirmed by RADHA FLOWERS, TERRANCE ([id number]), newspaper copy editor LORETO MAGANA ([id number]) on 05/14/2022 1:56:55 PM Referred By: Araceli Confirmed By:TERRANCE GARCIA MD
--- NOTE | 2022-05-11 15:00 | CASEMGMT ---
Per RN CM patient is possibly interested in completing a Healthcare Power of A'=[]
--- NOTE | 2022-05-11 15:02 | CASEMGMT ---
Per RN CM patient may be interested in completing a Healthcare Power of Home Management Supervisor. SW met with patient. Introduced self and role at [facility]. SW asked patient about completing a Healthcare Power of Home Management Supervisor. Patient said he would like to read the papers first. Patient also asked for a pen. SW gave patient a copy of the Healthcare Power of Home Management Supervisor papers and a pen. SW let patient know SW is available if he would like to complete the documents. Dhara EM
--- NOTE | 2022-05-11 16:26 | CON.PCM_ITS ---
Assessment & Plan Assessment/Plan (1) GI bleed: PLAN: The differential diagnosis for a GI bleed in a patient who has not had a colonoscopy does include colorectal malignancy, malignancy of the stomach or upper GI tract, angiodysplasia, telangiectasia, hemangioma, peptic ulcer disease secondary to nonsteroidal usage and antiplatelet therapy. He has a history of atrial fibrillation and RV are in and would need an echo patient for those diagnoses. Also he does take sertraline and SSRIs associated with GI bleed due to the fact that they can inhibit platelet aggregation and prostaglandin formation. Therefore that also increases risk of GI bleed. Is a vasculopath and does not heal well along with having a history of COPD that also increases risk of GI bleeding. Patient does not know if he wants to undergo any endoscopic procedures to determine etiology of his acute blood loss anemia. He is currently getting worked for possible underlying cardiac ischemia. This will have to be done prior to him undergoing endoscopy if he agrees to actually take a prep or allow us to look in his stomach for an etiology of his GI blood loss anemia. (2) Protein calorie malnutrition: PLAN: Severe protein, nutrition secondary to COPD and multiple other comorbidities. He has a history of hemorrhoid secondary to chronic constipation and diverticular. HPI Consult Data Date of Consult: 05/13/22 HPI Narrative Reason for Consultation: Anemia HPI Narrative: LORI DUMONT, is a 77 M who presents to the ED with worsening shortness of breath. He has a history of nicotine addiction with tobacco use, alcoholism and COPD. Patient is a very poor historian. Work-up in the emergency room included a chest x-ray which showed a small left pleural effusion with left bibasilar infiltrate and/or atelectasis, patient's white blood cell count was 14,000, hemoglobin was 10.6, potassium was 3.3, troponin was elevated at 156, and beta natruretic peptide was elevated at 2824.? Patient required oxygen at 3 L/min via nasal cannula to maintain his pulse ox above 90%, patient is EKG showed normal sinus rhythm with T wave changes over the precordial leads which appear new from a previous EKG.? Patient's previous EKG on 04/29/2022 showed evidence of an old anterior septal infarct, on this EKG however the T waves were upright. Patient was admitted to PCU for hypoxia and elevated troponin. 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 Patient is a very poor historian.? His medical history was taken from emergency department doctor and patient's significant other over the phone as patient could not provide history. Previously he was a patient at [facility] patient was discharged to [facility].? Reportedly patient signed out AGAINST MEDICAL ADVICE from [facility] on 04/27/2022. Patient is significant other report that ever since patient checked himself out from [facility] he has been drinking alcohol.? On the day of presentation patient drank beer and vodka.? Patient says that he does drink alcohol every day.? When he came into the ED he was discovered to have a significant iron deficiency anemia with a hemoglobin of 6.5 on 04/26/2022. ?When he presented back to the ED on 04/29/2022 his hemoglobin was 6.2.? He received transfusion of 3 units of packed red blood cells.? His hemoglobin is cu rrently 9.5.? Patient says that he has never had a colonoscopy and he does not want a colonoscopy.? I asked him did he want to have an upper endoscopy because of his recent surgery and anticoagulation he is at high risk for upper GI bleed.? He says that he does not want to undergo an upper endoscopy either. He was transfused 4 units of packed red blood cells and his hemoglobin went up to 12.2. He came back to the hospital for further evaluation and his hemoglobin was back down to 8.6. His current issues also include vascular compromise of his lower extremities and is being evaluated by vascular surgery. All other 16 review of systems are negative except as pertinent positive mentioned HPI. [facility] Medical History (Updated 05/12/22 @ 08:[address] Bhupinder Charles, DO) ABLA (acute blood loss anemia) Abnormal electrocardiogram Acute upper GI bleed Alcohol abuse Chronic pain Contusion of foot COPD (chronic obstructive pulmonary disease) CVA (cerebral vascular accident) Depression GERD (gastroesophageal reflux disease) Lung cancer Nicotine dependence PAD (peripheral artery disease) Pneumonia Prostate cancer Secondary pulmonary arterial hypertension Transient ischemic attack Home Medications albuterol sulfate 90 mcg/actuation aerosol inhaler 1 puff inhalation Q4H PRN PRN Asthma 11/25/15 [History Last Taken 05/09/22] nitroglycerin 0.4 mg sublingual tablet 0.4 mg sublingual Q5-15M PRN chest pain #25 tabs 03/18/19 [History Last Taken 1 Week Ago ~05/03/22] zolpidem 5 mg tablet 5 mg PO QHS PRN Insomnia 02/28/22 [History Last Taken 05/09/22] budesonide-formoterol HFA 80 mcg-4.5 mcg/actuation aerosol inhaler (Symbicort) 2 puff inhalation BID copd 04/29/22 [History Last Taken 05/09/22] ipratropium bromide 17 mcg/actuation HFA aerosol inhaler (Atrovent HFA) 2 puff inhalation DAILY copd 04/29/22 [History Last Taken 05/09/22] metoprolol succinate 25 mg tablet,extended release 24 hr 25 mg PO DAILY bp 04/29/22 [History Last Taken 05/08/22] levothyroxine 25 mcg tablet 25 mcg PO DAILY thyroid 05/10/22 [History Last Taken Unknown] pantoprazole 40 mg tablet,delayed release (Protonix) 40 mg PO DAILY stomach 05/10/22 [History Last Taken 05/08/22] potassium chloride 20 mEq tablet,extended release 20 meq PO BID supplement 05/10/22 [History Last Taken 05/08/22] sertraline 50 mg tablet 50 mg PO DAILY anxiety 05/10/22 [History Last Taken Unknown] sumatriptan succinate 25 mg tablet 25 mg PO DAILY PRN Migraine Headache 05/10/22 [History Last Taken Unknown] Allergy/AdvReac Type Severity Reaction Status Date / Time No Known Allergies Allergy Verified 05/07/22 10:32 Family History Other Cancer Surgical History femoral artery repair History of bronchoscopy History of tonsillectomy Status post tendon repair Social History Smoking Status: Current every day smoker tobacco type: cigarettes alcohol intake: current alcohol intake frequency: 3 or more drinks per day Alcohol type: beer ROS Constitutional Constitutional: Reports frequent falls, lethargy and weakness Eyes Eyes: Denies loss of vision Cardiovascular Cardiovascular: Reports bluish discoloration of hand/feet, cold extremities, dyspnea on exertion, irregular heart rhythm, leg ulcers, numbness in extremities and weakness in extremities; Denies abdominal pain, chest pain with activity, claudication, cyanosis, erythema on extremities or leg edema Respiratory/Chest Respiratory/Chest: Reports shortness of breath at rest and shortness of breath with exertion; Denies cough, excessive phlegm production or wheezing Gastrointestinal Gastrointestinal: Reports change in stool character and melena; Denies rectal bleeding Genitourinary Genitourinary: Denies dysuria or hematuria Musculoskeletal Musculoskeletal: Reports abnormal gait Integumentary Integumentary: Reports other Details: recent surgical incisions healing poorly ; Denies erythema or non-healing lesions Neurologic Neurologic: Reports focal weakness, numbness and sensory deficit; Denies abnormal speech, headache(s) or loss of vision Hematologic/Lymphatic Hematologic/Lymphatic: Denies easy bleeding, easy bruising or lymphadenopathy Physical Exam Const Constitutional Narrative: Cachectic. Appears much older than stated age. HEENT head/scalp atraumatic HEENT Narrative: Temporal wasting Resp normal respiratory effort, no retractions, no use of accessory muscles and clear to auscultation bilaterally Cardio regular rate, regular rhythm, S1 normal heart sound and S2 normal heart sound GI normal to inspection, nondistended, normoactive bowel sounds, soft to palpation, non-tender and non-distended Extremity Extremity Narrative: dusky LLL with faint pulse Psych affect normal Medical Records Data Medical Nutrition Assessment Dietitian: Malnutrition Criteria Met Start: 05/11/22 11:43 Freq: Status: Active Protocol: Document 05/11/22 11:43 (Rec: 05/11/22 11:43 [id number]) Nutrition Malnutrition Evidence of Malnutrition Exists Yes Malnutrition (severe): Chronic Evidenced By Suboptimal Energy Intake ( Severe),Physical Changes ( Severe) Clinical Problem Chronic Disease or Condition Related Malnutrition Etiology severe, chronic malnutrition related to inadequate energy intake d/t living/social situation, impaired dentition Signs/Symptoms as evidenced by estimated PO intake meeting <75% of estimated energy needs > 3 months; severe muscle wasting/ fat loss evident in orbital, temporal, clavicle, acromion, and scapular areas; BMI 17.4 Status Active Problem Recommendation Dietitian Recommendations/Changes continue regular diet; will fortify foods as able. Chocolate milk w/ meals, magic cup w/ lunch and dinner for additional calories/protein if consumed. Lab / Micro Data Result Diagrams: 05/13/22 05:31 05/13/22 05:31 Labs: Laboratory Results - last 24 hr 05/10/22 19:00: Troponin I High Sens 130 H* 05/11/22 05:21: WBC 10.4, RBC 3.04 L, Hgb 8.9 L, Hct 28.7 L, MCV 94.4 H, MCH 29.3, MCHC 31.0 L, RDW Std Deviation 58.0 H, RDW Coeff of Esther 17.2 H, Plt Count 295, MPV 8.5, Immature Gran % (Auto) 1.300 H, Neut % (Auto) 86.5 H, Lymph % (Auto) 6.9 L, [place] % (Auto) 4.9, Eos % (Auto) 0.2, Baso % (Auto) 0.2, Absolute Neuts (auto) 9.0 H, Absolute Lymphs (auto) 0.72 L, Nucleated RBC % 0 05/11/22 05:21: Sodium 143, Potassium 3.3 L, Chloride 104, Carbon Dioxide 32.0, Anion Gap 7, BUN 7, Creatinine 0.60 L, Estim Creat Clear Calc 42.66, Est GFR (MDRD) Af Amer 167, Est GFR (MDRD) Non-Af 138, BUN/Creatinine Ratio 11.7, Glucose 69 L, Calcium 7.3 L Micro: Microbiology 05/10/22 14:10 Nasal Secretion SARS-CoV-2 Antigen (Rapid) - Final Radiology Impression Echocardiogram 05/10/22 17:26 Interpretation Summary The estimated ejection fraction is 40-45 %. Reduced LV systolic function in comparison to previous echo in 2019 Ordering Physician: Wilson Carrion Referring Physician: Pedro Jaime M.D. Performed By: Makayla Wayne RCS Abdomen/Pelvis CTA 05/11/22 00:52 IMPRESSION: There is occlusion of the left superficial femoral artery at its origin. Occluded left tibioperoneal trunk, left anterior tibial artery, left posterior tibial artery and left peroneal artery: 50 % stenosis at the origin of the left renal artery. Cholelithiasis. Sigmoid diverticulosis. Small bilateral pleural effusions. Electronically Signed: Lonnie Mcmahan MD at 2:54 EDT , ADDENDUM: 05/11/22 0456 IMPRESSION: There is occlusion of the left superficial femoral artery at its origin. Occluded left tibioperoneal trunk, left anterior tibial artery, left posterior tibial artery and left peroneal artery: 50 % stenosis at the origin of the left renal artery. Cholelithiasis. Sigmoid diverticulosis. Small bilateral pleural effusions. N.B. : The above Results were Read Back by Lonnie Mcmahan MD to Billie Chisholm NP, and understanding confirmed on 05/11/2022 04:49:57 (ET). Electronically Signed: Lonnie Mcmahan MD at 2:54 EDT , Charges/Coding Visit Charges Inpatient E&M: 34653 Init Hosp L3
[2022-05-11] MEDS: Metoprolol Tartrate 25 MG Tablet PO (21:49)
[2022-05-12] VITALS (20 sets, daily range): BP systolic 84–114; BP diastolic 37–52; PULSE 52–110; RESP 14–20; TEMP 36.3–37.2; O2SAT 89–100
--- NOTE | 2022-05-12 03:18 | EKG12_ITS ---
Test Reason : Rhythm change Blood Pressure : / mmHG Vent. Rate : 096 BPM Atrial Rate : 000 BPM P-R Int : 000 ms QRS Dur : 110 ms QT Int : 424 ms P-R-T Axes : 000 -23 229 degrees QTc Int : 535 ms Atrial fibrillation Septal infarct , age undetermined ST & T wave abnormality, consider anterolateral ischemia Prolonged QT Abnormal ECG When compared with ECG of 11-MAY-2022 12:23, MANUAL COMPARISON REQUIRED, DATA IS UNCONFIRMED Confirmed by RADHA FLOWERS, TERRANCE ([id number]), videotape editor LORETO MAGANA ([id number]) on 05/14/2022 1:55:05 PM Referred By: Confirmed By:TERRANCE GARCIA MD
--- NOTE | 2022-05-12 03:33 | NURSING ---
While reviewing telemetry strips, pt was noted to have been going in and out of NSR/SB, ventricular bigeminy, and Afib with a rate of low 100s. Hospitalist notified. EKG obtained. Pt to undergo chemical stress test in AM.
[2022-05-12] MEDS: Acetaminophen 325 MG Tablet 650 MG PO (04:36)
[2022-05-12] MEDS: Levothyroxine 25 MCG TABLET PO (06:30)
[2022-05-12 07:47] LABS: Anion Gap 4 (5-15); BUN 9 mg/dL (7-18); BUN/Creat Ratio 16.3 RATIO (10-20); Calcium,Total 7.4 mg/dL (8.5-10.1); Chloride 99 mmol/L (98-107); Creatinine, Serum 0.55 mg/dL (0.70-1.30); EST Glomerular Filtration Rate 152 mL/min (>60); Est Glom Filt Rate - Afr Amer 184 mL/min (>60); Estimated Creatinine Clearance 42.66 ml/min; Glucose 89 mg/dL (74-106); Magnesium 1.8 mg/dL (1.6-2.6); Potassium 3.3 mmol/L (3.5-5.1); Sodium Level 139 mmol/L (136-145)
[2022-05-12] MEDS: Ipratropium/Albuterol Sulfate 3 ML AMPUL.NEB INHALATION ×3 (07:49→19:40)
--- NOTE | 2022-05-12 08:18 | PN.HOSP_ITS ---
Subjective Subjective His left leg is feeling more uncomfortable and requesting something to help him sleep. Objective Data Objective Data Vital Signs: Vital Signs Temp Pulse Resp BP Pulse Ox O2 Del Method O2 Flow Rate 37.2 C 71 16 102/42 L 96 Nasal Cannula 2 05/12/22 04:00 05/12/22 07:00 05/12/22 04:00 05/12/22 04:00 05/12/22 04:00 05/12/22 04:00 05/12/22 04:00 Oxygen Flow Rate (L/min) 2 Oxygen Delivery Method Nasal Cannula Weight: 50.349 kg Body Mass Index (BMI) 17.4 Intake & Output: Intake and Output for Last 24 Hours 05/10/22 05/11/22 05/12/22 23:59 23:59 23:59 Intake Total 840 / 840 522.09 / 522.09 Output Total 0 / 0 1650 / 2400 1050 / 1050 Balance 840 / 840 -1127.91 / -1877.91 -1050 / -1050 Medical Nutrition Assessment Dietitian: Malnutrition Criteria Met Start: 05/11/22 11:43 Freq: Status: Active Protocol: Document 05/11/22 11:43 AG (Rec: 05/11/22 11:43 AG [id number]) Nutrition Malnutrition Evidence of Malnutrition Exists Yes Malnutrition (severe): Chronic Evidenced By Suboptimal Energy Intake ( Severe),Physical Changes ( Severe) Clinical Problem Chronic Disease or Condition Related Malnutrition Etiology severe, chronic malnutrition related to inadequate energy intake d/t living/social situation, impaired dentition Signs/Symptoms as evidenced by estimated PO intake meeting <75% of estimated energy needs > 3 months; severe muscle wasting/ fat loss evident in orbital, temporal, clavicle, acromion, and scapular areas; BMI 17.4 Status Active Problem Recommendation Dietitian Recommendations/Changes continue regular diet; will fortify foods as able. Chocolate milk w/ meals, magic cup w/ lunch and dinner for additional calories/protein if consumed. Lab / Micro Data Result Diagrams: 05/11/22 05:21 05/12/22 07:18 Labs: Laboratory Results - last 24 hr 05/12/22 07:18: Sodium 139, Potassium 3.3 L, Chloride 99, Carbon Dioxide 36.0 H, Anion Gap 4 L, BUN 9, Creatinine 0.55 L, Estim Creat Clear Calc 42.66, Est GFR (MDRD) Af Amer 184, Est GFR (MDRD) Non-Af 152, BUN/Creatinine Ratio 16.3, Glucose 89, Calcium 7.4 L, Magnesium 1.8 Micro: Microbiology 05/10/22 14:10 Nasal Secretion SARS-CoV-2 Antigen (Rapid) - Final Radiography Diagnostic Testing: Radiology Impression Echocardiogram 05/10/22 17:26 Interpretation Summary The estimated ejection fraction is 40-45 %. Reduced LV systolic function in comparison to previous echo in 2019 Ordering Physician: Wilson Carrion Referring Physician: Pedro Jaime M.D. Performed By: Makayla Wayne RCS Physical Exam Const alert and no apparent distress Resp normal respiratory effort, no retractions and no use of accessory muscles Cardio regular rate, regular rhythm, S1 normal heart sound and S2 normal heart sound GI normal to inspection, nondistended, normoactive bowel sounds and soft to palpation Extremity Extremity Narrative: Left lower extremity is cold. Pulse not palpable. Dusky appearance. Psych affect normal Assessment & Plan Assessment/Plan (1) HFrEF (heart failure with reduced ejection fraction): PLAN: Acute exacerbation EF 60% on echo from 03/26/19, now down to 40-45% on IV furosemide continue metoprolol succinate Given reduced EF from 2019, consult cardiology May need C (2) PAD (peripheral artery disease): PLAN: CTA A/P: There is occlusion of the left superficial femoral artery at its origin. Occluded left tibioperoneal trunk, left anterior tibial artery, left posterior tibial artery and left peroneal artery: 50 % stenosis at the origin of the left renal artery. Vascular consult: pt is not a candidate for repeat revascularization. Eventually, pt will need L AKA. Will need cardiac clearance. Stress test today. CHEMO Workman, who will see in consultation. Patient with ischemic pain we will try to optimize pain medication but patient advised that may need to limit based on how his blood pressure is. (3) GI bleed: PLAN: Saw GI earlier this month Hold anticoagulation and antiplatelets Pt declined endoscopy earlier this month. Will need to be evaluated prior to DIONICIO Durham who will see patient in consultation. Pt will need to be optimized from cardiac standpoint prior to endoscopy. Seen by gastroenterology and patient still unsure if he wants to undergo end oscopy. (4) Atrial fibrillation with RVR: PLAN: Start diltiazem gtt check echocardiogram (5) Elevated troponin: PLAN: maybe type II event troponins trending down repeat stress when stable (6) Failure to thrive: PLAN: Due to patient's life decisions and refusal to follow with instructions and leave AGAINST MEDICAL ADVICE. I had a very long conversation with the patient and emphasized that he ultimately makes the decisions and if he does not want our help then that is his decision and then if that is the case then I would recommend hospice for him. He states that he does not want medical treatment, including an amputation and what ever testing would need to be done beforehand. I told him that he is unlikely to go to an assisted living after all of this is said and done given all the changes that could occur, including an amputation. He would require therapy and medical treatment to be more medically optimized to go to an assisted living. Once again emphasized that he does not have to do any this and emphasized that we are here to try to help him but he would need to help himself in leaving AGAINST MEDICAL ADVICE would not be helping his situation again. (7) Protein calorie malnutrition: PLAN: Nutrition consulted and recommending continue with regular diet and fortified food as able. Check milk with meals, Magic cup with lunch and dinner Complicates care and recovery PLAN: Plan Chronic conditions * chronic obstructive pulmonary disease-patient will be placed on DuoNeb aerosols, patient states he is still smoking * past history of left lower lobe lung cancer-there is an abnormal area on the patient's chest x-ray over the left lower lung field, I do not think this is a pneumonia, this may be where the patient previously had lung cancer. * hypothyroidism-patient is on Synthroid, it is unknown if he is compliant with this. VTE prophylaxis with SCDs. Patient very poor performance status and high likelihood of further decline. Patient still expressing desire to do medical treatment but his long-term prognosis is extremely poor at this time. It is unclear if the patient can be stabilized to undergo an amputation. Charges/Coding Visit Charges Inpatient E&M: 55600 Subs Hosp L2
[2022-05-12] MEDS: Heparin Injection (Vial) 5,000 UNIT/ML VIAL 5000 UNIT SC ×2 (08:26→20:35)
[2022-05-12] MEDS: Potassium Chloride Oral Tablet 20 MEQ 40 MEQ PO (08:31)
[2022-05-12] MEDS: Sertraline 50 MG Tablet PO (08:32)
[2022-05-12] MEDS: Metoprolol Tartrate 25 MG Tablet PO (08:32)
[2022-05-12] MEDS: Pantoprazole Sodium 40 MG Tablet PO (08:33)
[2022-05-12] MEDS: Furosemide 20 MG/2 ML VIAL IV (08:33)
--- NOTE | 2022-05-12 13:45 | STRESSREP_ITS ---
Stress Test Report Pharmacologic/Lexiscan myocardial perfusion stress test. Indication; This patient with severe peripheral vascular disease, paroxysmal A. fib, has mild elevation of cardiac biomarker high sensitive troponin Failure to thrive with protein calorie malnutrition and history of alcohol and smoking with a GI bleed Also has reduced LV function ejection fraction 40-45% on echocardiogram He underwent nuclear stress test evaluation Stress protocol: Resting EKG demonstrates: Abnormal EKG which ST depression and T wave inversion in the inferolateral lead, 2, 3, aVF and V4 V5. Age-indeterminate anteroseptal WA with Q waves and T wave inversion in V1 V2, underlying rhythm is sinus rhythm. 0.4 mg of regadenoson was infused per usual protocol followed by rapid intravenous saline flush injection continuous EKG monitoring was performed. The maximum heart rate attained was 117 bpm which was 83% of maximum predicted heart . Stress EKG showed[, no significant change from the resting EKG, with maximum heart rate of 170 bpm. Arrhythmia: No arrhythmia demonstrated Symptoms: Patient had no symptoms of chest pain Blood pressure at rest: 122/52 mmHg blood pressure at the end of stress: 122/52 Myocardial perfusion protocol. [12 mCi ]of Technetium 99m Sestamibi was injected at rest. [ 0.4 mg ]of Regadenoson was infused per usual protocol peak infusion[34 mCi ]of Technetium 99m sestamibi was injected. Stress images were obtained stress and rest images were reconstructed and compared in the short axis vertical and horizontal long axis. Gated images were also obtained Perfusion SPECT analysis: Review of the images demonstrate normal, reduced uptake of sestamibi at rest and post stress images, and apical, septal and inferior region Consistent with fixed defect, with partial septal reversible myocardial ischemia Gated SPECT analysis: Gated ejection fraction appears normal With ejection fraction calculated 66% Conclusion: Abnormal Lexiscan sestamibi myocardial perfusion study with a fixed defect as described And partial reversible septal ischemia LV function is preserved. German Workman MD,FACC,[facility] t
[2022-05-12] MEDS: oxyCODONE 5 MG Tablet PO (14:10)
--- NOTE | 2022-05-12 14:17 | PCM.CONS.C ---
Assessment & Plan Assessment/Plan (1) (HFpEF) heart failure with preserved ejection fraction: (2) Chest pain: PLAN: 77-year-old patient with severe peripheral vascular disease/CTA revealed occluded left SFA According to records patient is not a candidate for repeat revascularization with possible need of left above-knee amputation and a cardiac consult requested As he has mild elevation of cardiac biomarker Also patient had history of GI bleed A. fib with RVR and failure to thrive with protein calorie malnutrition Long history of smoking and alcohol Cardiac care plan and recommendation; 1. Patient has abnormal nuclear stress test with significantly abnormal EKG showing evidence of ST depression and T wave inversion in the inferolateral lead and also age indeterminate anteroseptal MO LV function is preserved with ejection fraction calculated at 66%. Gated nuclear study. Will be scheduled for cardiac catheterization on Saturday Continue current medical treatment HPI Consult Data Date of Consult: 06/15/22 HPI Narrative Reason for Consultation: Severe PAD/elevated troponins with type II MO HPI Narrative: LORI DUMONT, is a 77 M who presents [facility] Medical History (Updated 05/23/22 @ 00:05 by Carolyn Drew) (HFpEF) heart failure with preserved ejection fraction ABLA (acute blood loss anemia) Abnormal electrocardiogram Acute upper GI bleed Alcohol abuse Atrial fibrillation with RVR Chronic pain Contusion of foot COPD (chronic obstructive pulmonary disease) CVA (cerebral vascular accident) Depression Failure to thrive GERD (gastroesophageal reflux disease) GI bleed HFrEF (heart failure with reduced ejection fraction) Lung cancer Nicotine dependence PAD (peripheral artery disease) Pleural effusion on left Pneumonia Popliteal artery occlusion, left Prostate cancer Protein calorie malnutrition Secondary pulmonary arterial hypertension Transient ischemic attack Home Medications lorazepam 2 mg/mL oral concentrate 0.5 mg (0.25 mL) sublingual Q4H PRN PRN anxiety #0 mL 05/15/22 [Rx Last Taken Unknown] morphine concentrate 10 mg/0.5 mL oral syringe (FOR ORAL USE ONLY) 10 mg (0.5 mL) PO/SL Q2H PRN PRN Pain Score 6-10 3 days #0 ea 05/15/22 [Rx Last Taken Unknown] Allergy/AdvReac Type Severity Reaction Status Date / Time No Known Allergies Allergy Verified 05/07/22 10:32 Family History Other Cancer Surgical History femoral artery repair History of bronchoscopy History of tonsillectomy Status post tendon repair Social History Smoking Status: Current every day smoker tobacco type: cigarettes alcohol intake: current alcohol intake frequency: 3 or more drinks per day Alcohol type: beer Physical Exam Narrative Patient seen and evaluated in the stress lab today Very cachectic with failure to thrive and protein calorie malnutrition Alert orientated x3 Does not have active chest pain Cardiac exam S1-S2 regular Chest exam clear to auscultation bilateral Diminished pedal pulses, left dorsalis pedis and posterior tibial Risk Stratification Risk Stratification Applicable: Yes >/= 3 CAD Risk Factors (HTN, HLD, DM, family hx of CAD, or current smoker): Yes Aspirin Use in the Past 7 Days: Yes Severe Angina (>/= episodes in 24 hours): No EKG ST Changes >/= 0.5mm: Yes Positive Cardiac Marker: No Objective Data Vital Signs: Vital Signs Temp Pulse Resp BP Pulse Ox O2 Del Method O2 Flow Rate 98.5 F 57 L 16 97/49 L 91 Nasal Cannula 3 05/12/22 10:54 05/12/22 11:00 05/12/22 10:54 05/12/22 10:54 05/12/22 10:54 05/12/22 10:54 05/12/22 10:54 Oxygen Flow Rate (L/min) 3 Oxygen Delivery Method Nasal Cannula Weight: 111 lb 0.009 oz Body Mass Index (BMI) 17.4 Intake & Output: Intake and Output for Last 24 Hours 05/10/22 05/11/22 05/12/22 23:59 23:59 23:59 Intake Total 840 / 840 522.09 / 522.09 304 / 304 Output Total 0 / 0 1650 / 2400 1450 / 1450 Balance 840 / 840 -1127.91 / -1877.91 -1146 / -1146 Lab / Micro Data Result Diagrams: 05/14/22 05:15 05/14/22 05:15 Labs: Laboratory Results - last 24 hr 05/12/22 07:18: Sodium 139, Potassium 3.3 L, Chloride 99, Carbon Dioxide 36.0 H, Anion Gap 4 L, BUN 9, Creatinine 0.55 L, Estim Creat Clear Calc 42.66, Est GFR (MDRD) Af Amer 184, Est GFR (MDRD) Non-Af 152, BUN/Creatinine Ratio 16.3, Glucose 89, Calcium 7.4 L, Magnesium 1.8 Cardiology Labs/Tests 05/12/22 07:18: Sodium 139, Potassium 3.3 L, Chloride 99, Carbon Dioxide 36.0 H, Anion Gap 4 L, BUN 9, Creatinine 0.55 L, Est GFR (MDRD) Af Amer 184, Est GFR (MDRD) Non-Af 152, BUN/Creatinine Ratio 16.3, Glucose 89, Calcium 7.4 L, Magnesium 1.8 Rhythm: EKG: ECHO: Stress Test: Cardiac Cath: PCI: CT Surgery: Holter monitor: EPS: PPM: CXR: Chest CT Scan:
[2022-05-13] VITALS (19 sets, daily range): BP systolic 87–103; BP diastolic 30–53; PULSE 50–62; RESP 16–24; TEMP 36.2–36.7; O2SAT 96–100
[2022-05-13] MEDS: Levothyroxine 25 MCG TABLET PO (05:42)
[2022-05-13 06:07] LABS: Absolute Lymphocyte Count 0.72 X10^3/uL (0.83-4.51); Absolute Neutrophil Count 12.8 X10^3/uL (2.0-7.7); Basophil# 0.02 X10^3/uL; Basophil% 0.1 % (0-1); Eosinophil# 0.07 X10^3/uL; Eosinophils% 0.5 % (0-5); Hematocrit 28.6 % (40-54); Hemoglobin 8.8 g/dL (13.0-16.5); Lymphocyte # 0.72 X10^3/ul (0.83-4.51); Lymphocyte % 5.1 % (19-41); Mean Corp Hgb Conc 30.8 g/dL (32-36); Mean Corpuscular Hgb 29.3 pg (27.0-32.0); Mean Corpuscular Volume 95.3 fL (80-94); Mean Platelet Vol. 9.2 fl (6.2-12.0); Monocyte# 0.47 X10^3/uL; Monocyte% 3.3 % (0-10); NRBC Flagged by Analyzer 0 % (0-5); Neutrophil # 12.77 X10^3/uL (2.7-7.7); Neutrophil % 90.2 % (47-70); Platelet Count 298 K/mm3 (150-450); RBC Distribution Width CV 16.8 % (11.6-14.6); RBC Distribution Width SD 57.9 fl (35.1-43.9); White Blood Count 14.2 K/mm3 (4.4-11.0)
[2022-05-13 06:45] LABS: Anion Gap 4 (5-15); BUN 11 mg/dL (7-18); BUN/Creat Ratio 19.7 RATIO (10-20); Chloride 100 mmol/L (98-107); Creatinine, Serum 0.56 mg/dL (0.70-1.30); EST Glomerular Filtration Rate 151 mL/min (>60); Est Glom Filt Rate - Afr Amer 182 mL/min (>60); Estimated Creatinine Clearance 42.66 ml/min; Glucose 110 mg/dL (74-106); Sodium Level 139 mmol/L (136-145)
[2022-05-13] MEDS: Ipratropium/Albuterol Sulfate 3 ML AMPUL.NEB INHALATION ×3 (07:39→19:27)
[2022-05-13] MEDS: Metoprolol Tartrate 25 MG Tablet PO (08:22)
[2022-05-13] MEDS: Potassium Chloride Oral Tablet 20 MEQ 40 MEQ PO (08:23)
[2022-05-13] MEDS: Furosemide 20 MG/2 ML VIAL IV (08:23)
[2022-05-13] MEDS: Acetaminophen 325 MG Tablet 650 MG PO (08:23)
[2022-05-13] MEDS: Heparin Injection (Vial) 5,000 UNIT/ML VIAL 5000 UNIT SC ×2 (08:26→20:20)
[2022-05-13] MEDS: Pantoprazole Sodium 40 MG Tablet PO (08:26)
[2022-05-13] MEDS: Ondansetron 4 MG/2 ML Vial IV (08:30)
[2022-05-13] MEDS: oxyCODONE 5 MG Tablet 10 MG PO (08:30)
--- NOTE | 2022-05-13 09:03 | PN_ITS ---
Subjective Subjective Patient is not having any chest pain or shortness of breath at this time. He does not see any bleeding. He is tolerating a diet. Objective Data Objective Data Vital Signs: Vital Signs Temp Pulse Resp BP Pulse Ox O2 Del Method O2 Flow Rate 97.8 F 61 20 H 103/51 L 96 Nasal Cannula 2 05/13/22 08:10 05/13/22 08:22 05/13/22 08:10 05/13/22 08:22 05/13/22 08:10 05/13/22 08:12 05/13/22 08:12 Oxygen Flow Rate (L/min) 2 Oxygen Delivery Method Nasal Cannula Weight: 111 lb 0.009 oz Body Mass Index (BMI) 17.4 Intake & Output: Intake and Output for Last 24 Hours 05/11/22 05/12/22 05/13/22 23:59 23:59 23:59 Intake Total 522.09 / 522.09 586.91 / 586.91 Output Total 1650 / 2400 1750 / 2450 760 / 760 Balance -1127.91 / -1877.91 -1163.09 / -1863.09 -760 / -760 Medical Nutrition Assessment Dietitian: Malnutrition Criteria Met Start: 05/11/22 11:43 Freq: Status: Active Protocol: Document 05/11/22 11:43 AG (Rec: 05/11/22 11:43 [id number]) Nutrition Malnutrition Evidence of Malnutrition Exists Yes Malnutrition (severe): Chronic Evidenced By Suboptimal Energy Intake ( Severe),Physical Changes ( Severe) Clinical Problem Chronic Disease or Condition Related Malnutrition Etiology severe, chronic malnutrition related to inadequate energy intake d/t living/social situation, impaired dentition Signs/Symptoms as evidenced by estimated PO intake meeting <75% of estimated energy needs > 3 months; severe muscle wasting/ fat loss evident in orbital, temporal, clavicle, acromion, and scapular areas; BMI 17.4 Status Active Problem Recommendation Dietitian Recommendations/Changes continue regular diet; will fortify foods as able. Chocolate milk w/ meals, magic cup w/ lunch and dinner for additional calories/protein if consumed. Lab / Micro Data Result Diagrams: 05/13/22 05:31 05/13/22 05:31 Labs: Laboratory Results - last 24 hr 05/13/22 05:31: WBC 14.2 H, RBC 3.00 L, Hgb 8.8 L, Hct 28.6 L, MCV 95.3 H, MCH 29.3, MCHC 30.8 L, RDW Std Deviation 57.9 H, RDW Coeff of Esther 16.8 H, Plt Count 298, MPV 9.2, Immature Gran % (Auto) 0.800, Neut % (Auto) 90.2 H, Lymph % (Auto) 5.1 L, [place] % (Auto) 3.3, Eos % (Auto) 0.5, Baso % (Auto) 0.1, Absolute Neuts (auto) 12.8 H, Absolute Lymphs (auto) 0.72 L, Nucleated RBC % 0 05/13/22 05:31: Sodium 139, Potassium 3.0 L, Chloride 100, Carbon Dioxide 35.0 H , Anion Gap 4 L, BUN 11, Creatinine 0.56 L, Estim Creat Clear Calc 42.66, Est GFR (MDRD) Af Amer 182, Est GFR (MDRD) Non-Af 151, BUN/Creatinine Ratio 19.7, Glucose 110 H, Calcium 7.0 L Micro: Microbiology 05/10/22 14:10 Nasal Secretion SARS-CoV-2 Antigen (Rapid) - Final Physical Exam Narrative Patient seen and evaluated in the stress lab today Very cachectic with failure to thrive and protein calorie malnutrition Alert orientated x3 Does not have active chest pain Cardiac exam S1-S2 regular Chest exam clear to auscultation bilateral Diminished pedal pulses, left dorsalis pedis and posterior tibial Assessment & Plan Assessment/Plan (1) GI bleed: PLAN: Patient will be scheduled to have her undergo cardiac catheterization tomorrow. I will continue to follow him. His hemoglobin seems to be stable. But he has never had a colonoscopy or upper endoscopy in the past and there is a high suspicion for neoplasia given the significant weight loss and cachexia of this patient. Charges/Coding Visit Charges Inpatient E&M: 02473 Subs Hosp L2
--- NOTE | 2022-05-13 09:31 | PCM.PN.HOSP ---
Subjective Subjective Leg pain still ongoing but pain is much improved. Objective Data Objective Data Vital Signs: Vital Signs Temp Pulse Resp BP Pulse Ox O2 Del Method O2 Flow Rate 36.6 C 61 20 H 103/51 L 96 Nasal Cannula 2 05/13/22 08:10 05/13/22 08:22 05/13/22 08:10 05/13/22 08:22 05/13/22 08:10 05/13/22 08:12 05/13/22 08:12 Oxygen Flow Rate (L/min) 2 Oxygen Delivery Method Nasal Cannula Weight: 50.349 kg Body Mass Index (BMI) 17.4 Intake & Output: Intake and Output for Last 24 Hours 05/11/22 05/12/22 05/13/22 23:59 23:59 23:59 Intake Total 522.09 / 522.09 586.91 / 586.91 Output Total 1650 / 2400 1750 / 2450 760 / 760 Balance -1127.91 / -1877.91 -1163.09 / -1863.09 -760 / -760 Medical Nutrition Assessment Dietitian: Malnutrition Criteria Met Start: 05/11/22 11:43 Freq: Status: Active Protocol: Document 05/11/22 11:43 AG (Rec: 05/11/22 11:43 AG [id number]) Nutrition Malnutrition Evidence of Malnutrition Exists Yes Malnutrition (severe): Chronic Evidenced By Suboptimal Energy Intake ( Severe),Physical Changes ( Severe) Clinical Problem Chronic Disease or Condition Related Malnutrition Etiology severe, chronic malnutrition related to inadequate energy intake d/t living/social situation, impaired dentition Signs/Symptoms as evidenced by estimated PO intake meeting <75% of estimated energy needs > 3 months; severe muscle wasting/ fat loss evident in orbital, temporal, clavicle, acromion, and scapular areas; BMI 17.4 Status Active Problem Recommendation Dietitian Recommendations/Changes continue regular diet; will fortify foods as able. Chocolate milk w/ meals, magic cup w/ lunch and dinner for additional calories/protein if consumed. Lab / Micro Data Result Diagrams: 05/13/22 05:31 05/13/22 05:31 Labs: Laboratory Results - last 24 hr 05/13/22 05:31: WBC 14.2 H, RBC 3.00 L, Hgb 8.8 L, Hct 28.6 L, MCV 95.3 H, MCH 29.3, MCHC 30.8 L, RDW Std Deviation 57.9 H, RDW Coeff of Esther 16.8 H, Plt Count 298, MPV 9.2, Immature Gran % (Auto) 0.800, Neut % (Auto) 90.2 H, Lymph % (Auto) 5.1 L, Rich % (Auto) 3.3, Eos % (Auto) 0.5, Baso % (Auto) 0.1, Absolute Neuts (auto) 12.8 H, Absolute Lymphs (auto) 0.72 L, Nucleated RBC % 0 05/13/22 05:31: Sodium 139, Potassium 3.0 L, Chloride 100, Carbon Dioxide 35.0 H, Anion Gap 4 L, BUN 11, Creatinine 0.56 L, Estim Creat Clear Calc 42.66, Est GFR (MDRD) Af Amer 182, Est GFR (MDRD) Non-Af 151, BUN/Creatinine Ratio 19.7, Glucose 110 H, Calcium 7.0 L Micro: Microbiology 05/10/22 14:10 Nasal Secretion SARS-CoV-2 Antigen (Rapid) - Final Physical Exam Const alert and no apparent distress Constitutional Narrative: Cachectic. Appears much older than stated age. Resp normal respiratory effort, no retractions, no use of accessory muscles and clear to auscultation bilaterally Cardio regular rate, regular rhythm, S1 normal heart sound and S2 normal heart sound GI normal to inspection, nondistended, normoactive bowel sounds and soft to palpation Extremity Extremity Narrative: Profound muscle wasting throughout. Cool left lower extremity with absent pulse. Skin Skin Narrative: Cyanosis now extending up from his foot up to about mid leg. Psych affect normal Assessment & Plan Assessment/Plan (1) HFrEF (heart failure with reduced ejection fraction): PLAN: Acute exacerbation EF 60% on echo from 03/26/19, now down to 40-45% on IV furosemide continue metoprolol succinate Given reduced EF from 2019, consult cardiology May need [facility] (2) PAD (peripheral artery disease): PLAN: CTA A/P: There is occlusion of the left superficial femoral artery at its origin. Occluded left tibioperoneal trunk, left anterior tibial artery, left posterior tibial artery and left peroneal artery: 50 % stenosis at the origin of the left renal artery. Vascular consult: pt is not a candidate for repeat revascularization. Eventually, pt will need L AKA. Will need cardiac clearance. Stress test today. CHEMO Workman, who will see in consultation. Patient with ischemic pain we will try to optimize pain medication but patient advised that may need to limit based on how his blood pressure is. (3) GI bleed: PLAN: Saw GI earlier this month Hold anticoagulation and antiplatelets Pt declined endoscopy earlier this month. Will need to be evaluated prior to AKA CHEMO [place] who will see patient in consultation. Pt will need to be optimized from cardiac standpoint prior to endoscopy. Seen by gastroenterology and patient still unsure if he wants to undergo endoscopy. (4) Atrial fibrillation with RVR: PLAN: Start diltiazem gtt check echocardiogram (5) Elevated troponin: PLAN: maybe type II event troponins trending down repeat stress when stable (6) Failure to thrive: PLAN: Due to patient's life decisions and refusal to follow with instructions and leave AGAINST MEDICAL ADVICE. I had a very long conversation with the patient and emphasized that he ultimately makes the decisions and if he does not want our help then that is his decision and then if that is the case then I would recommend hospice for him. He states that he does not want medical treatment, including an amputation and what ever testing would need to be done beforehand. I told him that he is unlikely to go to an assisted living after all of this is said and done given all the changes that could occur, including an amputation. He would require therapy and medical treatment to be more medically optimized to go to an assisted living. Once again emphasized that he does not have to do any this and emphasized that we are here to try to help him but he would need to help himself in leaving AGAINST MEDICAL ADVICE would not be helping his situation again. (7) Protein calorie malnutrition: PLAN: Nutrition consulted and recommending continue with regular diet and fortified food as able. Check milk with meals, Magic cup with lunch and dinner Complicates care and recovery PLAN: Plan Chronic conditions chronic obstructive pulmonary disease-patient will be placed on DuoNeb aerosols, patient states he is still smoking past history of left lower lobe lung cancer-there is an abnormal area on the patient's chest x-ray over the left lower lung field, I do not think this is a pneumonia, this may be where the patient previously had lung cancer. hypothyroidism-patient is on Synthroid, it is unknown if he is compliant with this. VTE prophylaxis with SCDs. Patient very poor performance status and high likelihood of further decline. Patient still expressing desire to do medical treatment but his long-term prognosis is extremely poor at this time. It is unclear if the patient can be stabilized to undergo an amputation. Advance care planning: Spent 16 minutes discussing with the patient. Did address that his current status is that he is looking at a very long recovery and that if everything goes according to plan. He is enough to have extensive stay in therapy and rehab. I told him with that that he ultimately decides what he wants to do and if he does not want to proceed with any that then we can proceed with hospice measures and comfort measures. He states that he is not ready for hospice measures at this time. Charges/Coding Visit Charges Inpatient E&M: 60485 Subs Hosp L3 Procedures Hospitalists Procedures: 65051 Advncd Care Plan 30 Min
--- NOTE | 2022-05-13 12:46 | PCM.PN.CARD ---
Subjective Subjective Seen evaluated today at bedside Patient very cachectic with failure to thrive Objective Data Vital Signs: Vital Signs Temp Pulse Resp BP Pulse Ox O2 Del Method O2 Flow Rate 97.8 F 61 20 H 103/51 L 96 Nasal Cannula 1 05/13/22 08:10 05/13/22 08:22 05/13/22 08:10 05/13/22 08:22 05/13/22 08:10 05/13/22 08:12 05/13/22 09:46 Oxygen Flow Rate (L/min) 1 Oxygen Delivery Method Nasal Cannula Weight: 111 lb 0.009 oz Body Mass Index (BMI) 17.4 Intake & Output: Intake and Output for Last 24 Hours 05/11/22 05/12/22 05/13/22 23:59 23:59 23:59 Intake Total 522.09 / 522.09 586.91 / 586.91 240 / 240 Output Total 1650 / 2400 1750 / 2450 1060 / 1060 Balance -1127.91 / -1877.91 -1163.09 / -1863.09 -820 / -820 Lab / Micro Data Result Diagrams: 05/13/22 05:31 05/13/22 05:31 Labs: Laboratory Results - last 24 hr 05/13/22 05:31: WBC 14.2 H, RBC 3.00 L, Hgb 8.8 L, Hct 28.6 L, MCV 95.3 H, MCH 29.3, MCHC 30.8 L, RDW Std Deviation 57.9 H, RDW Coeff of Esther 16.8 H, Plt Count 298, MPV 9.2, Immature Gran % (Auto) 0.800, Neut % (Auto) 90.2 H, Lymph % (Auto) 5.1 L, [place] % (Auto) 3.3, Eos % (Auto) 0.5, Baso % (Auto) 0.1, Absolute Neuts (auto) 12.8 H, Absolute Lymphs (auto) 0.72 L, Nucleated RBC % 0 05/13/22 05:31: Sodium 139, Potassium 3.0 L, Chloride 100, Carbon Dioxide 35.0 H, Anion Gap 4 L, BUN 11, Creatinine 0.56 L, Estim Creat Clear Calc 42.66, Est GFR (MDRD) Af Amer 182, Est GFR (MDRD) Non-Af 151, BUN/Creatinine Ratio 19.7, Glucose 110 H, Calcium 7.0 L Cardiology Labs/Tests 05/13/22 05:31: WBC 14.2 H, RBC 3.00 L, Hgb 8.8 L, Hct 28.6 L, MCV 95.3 H, MCH 29.3, MCHC 30.8 L, Plt Count 298, MPV 9.2, Immature Gran % (Auto) 0.800, Neut % (Auto) 90.2 H, Lymph % (Auto) 5.1 L, [place] % (Auto) 3.3, Eos % (Auto) 0.5, Baso % (Auto) 0.1, Absolute Neuts (auto) 12.8 H, Nucleated RBC % 0 05/13/22 05:31: Sodium 139, Potassium 3.0 L, Chloride 100, Carbon Dioxide 35.0 H, Anion Gap 4 L, BUN 11, Creatinine 0.56 L, Est GFR (MDRD) Af Amer 182, Est GFR (MDRD) Non-Af 151, BUN/Creatinine Ratio 19.7, Glucose 110 H, Calcium 7.0 L Rhythm: EKG: ECHO: Stress Test: Cardiac Cath: PCI: CT Surgery: Holter monitor: EPS: PPM: CXR: Chest CT Scan: Physical Exam Narrative Patient is very cachectic with failure to thrive Cardiac exam S1-S2 irregular Chest exam mild diminished air entry bilateral Pedal pulses nonpalpable on the left dorsalis pedis and left posterior tibial. Assessment & Plan Assessment/Plan (1) PAD (peripheral artery disease): (2) Bilateral pneumonia: (3) COPD exacerbation: (4) Failure to thrive: (5) Atrial fibrillation with RVR: (6) GI bleed: (7) NSTEMI (non-ST elevated myocardial infarction): PLAN: 77-year-old patient, with multiple medical comorbidities History of smoking and alcohol abuse Patient has severe peripheral vascular disease and cardiac consultation requested for evaluation for possible left above-knee amputation Patient had also anemia A. fib with RVR currently on diltiazem Has a mild elevation of cardiac biomarkers high sensitive troponin patient evaluated by echo and nuclear stress test which is abnormal, nuclear stress test. Cardiac care plan; 1. I reviewed the current evaluation will continue current treatment 2. Very high risk patient with severe peripheral vascular disease, anemia, A. fib, abnormal nuclear stress test Patient had failure to thrive and very cachectic I schedule for left heart cath/right radial approach Will be set up for tomorrow by Dr. Howard
[2022-05-13] MEDS: Acetaminophen 500 MG Tablet 1000 MG PO ×2 (14:38→21:41)
[2022-05-13] MEDS: Potassium Chloride Oral Soln 20 MEQ/15 ML UDC 40 MEQ PO (20:19)
[2022-05-13] MEDS: Sertraline 50 MG Tablet PO (20:19)
[2022-05-13] MEDS: Zolpidem Tartrate 5 MG Tablet PO (21:33)
[2022-05-13] MEDS: 0.9% Saline Lock 10 ML Syringe IV (21:44)
[2022-05-14] VITALS (27 sets, daily range): BP systolic 80–130; BP diastolic 35–70; PULSE 53–80; RESP 14–20; TEMP 36.2–36.9; O2SAT 72–100
--- NOTE | 2022-05-14 05:55 | EKG12_ITS ---
Test Reason : AM EKG Blood Pressure : / mmHG Vent. Rate : 056 BPM Atrial Rate : 056 BPM P-R Int : 152 ms QRS Dur : 094 ms QT Int : 518 ms P-R-T Axes : 031 -25 200 degrees QTc Int : 499 ms Sinus bradycardia Anteroseptal infarct , age undetermined Abnormal ECG When compared with ECG of 12-MAY-2022 03:31, MANUAL COMPARISON REQUIRED, DATA IS UNCONFIRMED Confirmed by RADHA FLOWERS, TERRANCE ([id number]), senior editor LORETO MAGANA ([id number]) on 05/14/2022 1:50:19 PM Referred By: Confirmed By:TERRANCE GARCIA MD
[2022-05-14 06:42] LABS: Absolute Lymphocyte Count 0.59 X10^3/uL (0.83-4.51); Absolute Neutrophil Count 15.9 X10^3/uL (2.0-7.7); Basophil# 0.02 X10^3/uL; Basophil% 0.1 % (0-1); Eosinophil# 0.02 X10^3/uL; Eosinophils% 0.1 % (0-5); Hematocrit 28.9 % (40-54); Hemoglobin 8.8 g/dL (13.0-16.5); Lymphocyte # 0.59 X10^3/ul (0.83-4.51); Lymphocyte % 3.4 % (19-41); Mean Corp Hgb Conc 30.4 g/dL (32-36); Mean Corpuscular Hgb 29.5 pg (27.0-32.0); Mean Platelet Vol. 9.5 fl (6.2-12.0); Monocyte# 0.56 X10^3/uL; Monocyte% 3.3 % (0-10); NRBC Flagged by Analyzer 0 % (0-5); Neutrophil # 15.86 X10^3/uL (2.7-7.7); Neutrophil % 92.3 % (47-70); POSITIVE DIFFERENTIAL YES; Platelet Count 318 K/mm3 (150-450); RBC Distribution Width CV 16.8 % (11.6-14.6); RBC Distribution Width SD 59.5 fl (35.1-43.9); Red Blood Count 2.98 M/mm3 (4.6-6.2); White Blood Count 17.2 K/mm3 (4.4-11.0)
[2022-05-14 06:44] LABS: Differential Indicated SCAN CRITERIA MET
[2022-05-14] MEDS: Ipratropium/Albuterol Sulfate 3 ML AMPUL.NEB INHALATION ×3 (06:52→18:58)
[2022-05-14 07:06] LABS: Anisocytosis 2+; Macrocytosis 1+
[2022-05-14 07:12] LABS: Anion Gap 2 (5-15); BUN 14 mg/dL (7-18); BUN/Creat Ratio 30.8 RATIO (10-20); Calcium,Total 7.6 mg/dL (8.5-10.1); Chloride 101 mmol/L (98-107); Creatinine, Serum 0.45 mg/dL (0.70-1.30); EST Glomerular Filtration Rate 191 mL/min (>60); Est Glom Filt Rate - Afr Amer 231 mL/min (>60); Estimated Creatinine Clearance 42.66 ml/min; Glucose 93 mg/dL (74-106); Potassium 4.7 mmol/L (3.5-5.1); Sodium Level 139 mmol/L (136-145)
--- NOTE | 2022-05-14 07:47 | PCM.PN.HOSP ---
Subjective Subjective Groggy post cath. Still with LLE pain. Objective Data Objective Data Vital Signs: Vital Signs Temp Pulse Resp BP Pulse Ox O2 Del Method O2 Flow Rate 36.4 C L 54 L 14 119/35 L 97 Nasal Cannula 2 05/14/22 06:36 05/14/22 07:00 05/14/22 06:36 05/14/22 06:36 05/14/22 06:36 05/14/22 06:36 05/14/22 06:36 Oxygen Flow Rate (L/min) 2 Oxygen Delivery Method Nasal Cannula Weight: 50.349 kg Body Mass Index (BMI) 17.4 Intake & Output: Intake and Output for Last 24 Hours 05/12/22 05/13/22 05/14/22 23:59 23:59 23:59 Intake Total 586.91 / 586.91 540 / 840 300 / 300 Output Total 1750 / 2450 1460 / 1735 275 / 275 Balance -1163.09 / -1863.09 -920 / -895 Medical Nutrition Assessment Dietitian: Malnutrition Criteria Met Start: 05/11/22 11:43 Freq: Status: Active Protocol: Document 05/13/22 12:01 RMA (Rec: 05/13/22 12:01 RMA [id number]) Nutrition Malnutrition Evidence of Malnutrition Exists Yes Malnutrition (severe): Chronic Evidenced By Suboptimal Energy Intake ( Severe),Weight Loss (Moderate) ,Physical Changes (Severe) Clinical Problem Chronic Disease or Condition Related Malnutrition Etiology severe, chronic malnutrition related to inadequate energy intake d/t living/social situation, impaired dentition/ edentulous state Signs/Symptoms as evidenced by refusal of meals while admitted, estimated PO intake meeting < 75% of estimated energy needs > 3 months; severe muscle wasting/fat loss evident in orbital, temporal, clavicle, acromion, and scapular areas; BMI 17.4 Status Active Problem Recommendation Dietitian Recommendations/Changes Will continue liberalized regular diet; with fortified foods as able. Will continue Chocolate milk w / meals, magic cup w/ lunch and dinner for additional calories/protein if consumed. May need to consider enteral nutrition support if patient continues with weight decline and refusal of meals. Lab / Micro Data Result Diagrams: 05/14/22 05:15 05/14/22 05:15 Labs: Laboratory Results - last 24 hr 05/14/22 05:15: WBC 17.2 H, RBC 2.98 L, Hgb 8.8 L, Hct 28.9 L, MCV 97.0 H, MCH 29.5, MCHC 30.4 L, RDW Std Deviation 59.5 H, RDW Coeff of Esther 16.8 H, Plt Count 318, MPV 9.5, Immature Gran % (Auto) 0.800, Neut % (Auto) 92.3 H, Lymph % (Auto) 3.4 L, [place] % (Auto) 3.3, Eos % (Auto) 0.1, Baso % (Auto) 0.1, Absolute Neuts (auto) 15.9 H, Absolute Lymphs (auto) 0.59 L, Nucleated RBC % 0, Anisocytosis 2+, Macrocytosis 1+ 05/14/22 05:15: Sodium 139, Potassium 4.7, Chloride 101, Carbon Dioxide 36.0 H, Anion Gap 2 L, BUN 14, Creatinine 0.45 L, Estim Creat Clear Calc 42.66, Est GFR (MDRD) Af Amer 231, Est GFR (MDRD) Non-Af 191, BUN/Creatinine Ratio 30.8 H, Glucose 93, Calcium 7.6 L Micro: Microbiology 05/10/22 14:10 Nasal Secretion SARS-CoV-2 Antigen (Rapid) - Final Physical Exam Const alert and no apparent distress HEENT HEENT Narrative: temporal wasting. Resp normal respiratory effort, no retractions and no use of accessory muscles Cardio regular rate and regular rhythm GI normal to inspection, nondistended, normoactive bowel sounds and soft to palpation Extremity Extremity Narrative: right leg wrapped. cool. DP pulse not palpable. Psych Psych Narrative: flat affect Assessment & Plan Assessment/Plan (1) HFrEF (heart failure with reduced ejection fraction): PLAN: Acute exacerbation EF 60% on echo from 03/26/19, now down to 40-45% on IV furosemide continue metoprolol succinate Given reduced EF from 2019, consult cardiology May need [facility] (2) PAD (peripheral artery disease): PLAN: CTA A/P: There is occlusion of the left superficial femoral artery at its origin. Occluded left tibioperoneal trunk, left anterior tibial artery, left posterior tibial artery and left peroneal artery: 50 % stenosis at the origin of the left renal artery. Vascular consult: pt is not a candidate for repeat revascularization. Eventually, pt will need L AKA. Will need cardiac clearance. Stress test today. CHEMO Workman, who will see in consultation. Patient with ischemic pain we will try to optimize pain medication but patient advised that may need to limit based on how his blood pressure is. (3) GI bleed: PLAN: Saw GI earlier this month Hold anticoagulation and antiplatelets Pt declined endoscopy earlier this month. Will need to be evaluated prior to AKA CHEMO [place] who will see patient in consultation. Pt will need to be optimized from cardiac standpoint prior to endoscopy. Seen by gastroenterology and patient still unsure if he wants to undergo endoscopy. (4) Atrial fibrillation with RVR: PLAN: stable on metoprolol tartrate 25 BID (5) Elevated troponin: PLAN: maybe type II event troponins trending down repeat stress when stable cath with 60-70% stenosis of LAD. CHEMO Howard. Medical Mgmt (6) Failure to thrive: PLAN: Due to patient's life decisions and refusal to follow with instructions and leave AGAINST MEDICAL ADVICE. I had a very long conversation with the patient and emphasized that he ultimately makes the decisions and if he does not want our help then that is his decision and then if that is the case then I would recommend hospice for him. He states that he does not want medical treatment, including an amputation and what ever testing would need to be done beforehand. I told him that he is unlikely to go to an assisted living after all of this is said and done given all the changes that could occur, including an amputation. He would require therapy and medical treatment to be more medically optimized to go to an assisted living. Once again emphasized that he does not have to do any this and emphasized that we are here to try to help him but he would need to help himself in leaving AGAINST MEDICAL ADVICE would not be helping his situation again. (7) Protein calorie malnutrition: PLAN: Nutrition consulted and recommending continue with regular diet and fortified food as able. Check milk with meals, Magic cup with lunch and dinner Complicates care and recovery PLAN: Plan Chronic conditions chronic obstructive pulmonary disease-patient will be placed on DuoNeb aerosols, patient states he is still smoking past history of left lower lobe lung cancer-there is an abnormal area on the patient's chest x-ray over the left lower lung field, I do not think this is a pneumonia, this may be where the patient previously had lung cancer. hypothyroidism-patient is on Synthroid, it is unknown if he is compliant with this. VTE prophylaxis with SCDs. Patient very poor performance status and high likelihood of further decline. Patient still expressing desire to do medical treatment but his long-term prognosis is extremely poor at this time. It is unclear if the patient can be stabilized to undergo an amputation. Charges/Coding Visit Charges Inpatient E&M: 33630 Subs Hosp L2
--- NOTE | 2022-05-14 07:53 | PN.CARD_ITS ---
Subjective Subjective Seen and evaluated and underwent cardiac catheterization today Objective Data Vital Signs: Vital Signs Temp Pulse Resp BP Pulse Ox O2 Del Method O2 Flow Rate 97.5 F L 54 L 14 119/35 L 97 Nasal Cannula 2 05/14/22 06:36 05/14/22 07:00 05/14/22 06:36 05/14/22 06:36 05/14/22 06:36 05/14/22 06:36 05/14/22 06:36 Oxygen Flow Rate (L/min) 2 Oxygen Delivery Method Nasal Cannula Weight: 111 lb 0.009 oz Body Mass Index (BMI) 17.4 Intake & Output: Intake and Output for Last 24 Hours 05/12/22 05/13/22 05/14/22 23:59 23:59 23:59 Intake Total 586.91 / 586.91 540 / 840 300 / 300 Output Total 1750 / 2450 1460 / 1735 275 / 275 Balance -1163.09 / -1863.09 -920 / -895 Lab / Micro Data Result Diagrams: 05/14/22 05:15 05/14/22 05:15 Labs: Laboratory Results - last 24 hr 05/14/22 05:15: WBC 17.2 H, RBC 2.98 L, Hgb 8.8 L, Hct 28.9 L, MCV 97.0 H, MCH 29.5, MCHC 30.4 L, RDW Std Deviation 59.5 H, RDW Coeff of Esther 16.8 H, Plt Count 318, MPV 9.5, Immature Gran % (Auto) 0.800, Neut % (Auto) 92.3 H, Lymph % (Auto) 3.4 L, [place] % (Auto) 3.3, Eos % (Auto) 0.1, Baso % (Auto) 0.1, Absolute Neuts (auto) 15.9 H, Absolute Lymphs (auto) 0.59 L, Nucleated RBC % 0, Anisocytosis 2+, Macrocytosis 1+ 05/14/22 05:15: Sodium 139, Potassium 4.7, Chloride 101, Carbon Dioxide 36.0 H, Anion Gap 2 L, BUN 14, Creatinine 0.45 L, Estim Creat Clear Calc 42.66, Est GFR (MDRD) Af Amer 231, Est GFR (MDRD) Non-Af 191, BUN/Creatinine Ratio 30.8 H, Glucose 93, Calcium 7.6 L Cardiology Labs/Tests 05/14/22 05:15: WBC 17.2 H, RBC 2.98 L, Hgb 8.8 L, Hct 28.9 L, MCV 97.0 H, MCH 29.5, MCHC 30.4 L, Plt Count 318, MPV 9.5, Immature Gran % (Auto) 0.800, Neut % (Auto) 92.3 H, Lymph % (Auto) 3.4 L, [place] % (Auto) 3.3, Eos % (Auto) 0.1, Baso % (Auto) 0.1, Absolute Neuts (auto) 15.9 H, Nucleated RBC % 0 05/14/22 05:15: Sodium 139, Potassium 4.7, Chloride 101, Carbon Dioxide 36.0 H, Anion Gap 2 L, BUN 14, Creatinine 0.45 L, Est GFR (MDRD) Af Amer 231, Est GFR (M DRD) Non-Af 191, BUN/Creatinine Ratio 30.8 H, Glucose 93, Calcium 7.6 L Rhythm: EKG: ECHO: Stress Test: Cardiac Cath: PCI: CT Surgery: Holter monitor: EPS: PPM: CXR: Chest CT Scan: Physical Exam Const alert, oriented x3 and no apparent distress General Appearance: cooperative HEENT hearing grossly normal bilaterally Head and Scalp: atraumatic Eyes EOMs intact bilaterally Neck General: normal visual inspection Chest inspection of chest normal and palpation of chest normal Resp normal respiratory effort Auscultation: clear to auscultation bilaterally Cardio regular rate, regular rhythm, S1 normal heart sound and S2 normal heart sound Jugular Venous Distention: JVD GI normal to inspection, nondistended, normoactive bowel sounds Extremity normal capillary refill and no pedal edema Peripheral Pulses: Yes pulses 2+ throughout and femoral pulses present Skin no rashes or lesions noted Neuro oriented x3 and CN's II-XII intact bilaterally Psych Appearance: grossly normal and appropriate Assessment & Plan Assessment/Plan (1) NSTEMI (non-ST elevated myocardial infarction): PLAN: Patient underwent cardiac catheterization today which demonstrated moderate to severe lesion noted in the mid left anterior descending artery. The circumflex artery and the right coronary artery did not have any significant disease. The patient was noted to have mild left ventricular systolic dysfunction with estimated ejection fraction of 40 to 45%. Based on the above angiographic findings as well as his clinical condition with his significant GI bleed intolerant of aspirin and NSAIDs I would recommend that we medically manage him with beta-blockers and high intensity statin and see how he does. * No cardiac intervention will be undertaken at this time. With respect to his upcoming possible vascular surgery will need to discuss this further. He is at moderate to high risk. (2) Atrial fibrillation with RVR: PLAN: He has not had any further episodes of atrial fibrillation. (3) GI bleed: PLAN: With respect to his recent GI bleed I would recommend that we further GI recommendations.
--- NOTE | 2022-05-14 08:00 | CL.D_ITS ---
Patient Name: Liam Curran Study Date: 05/14/2022 Performing: Jeremias Howard MD Ht: 66 inches 167.64 cm : 1945 Wt: 120 lbs 54.43 kg Age: 77 Gender: male BSA: 1.61 PROCEDURE(S) PERFORMED DC02-(34512)C/COR CLINICAL PROFILE AND INDICATIONS Indications: Suspected CAD Heart Failure: None Stress/Imaging Date: 05/12/22Stress Test with SPECT MPI: Positive Low Risk CONCLUSIONS Moderately severe CAD in LAD with no CAD in RCA and Lcx RECOMMENDATIONS Medical therapy DESCRIPTION OF PROCEDURE The patient arrived to the procedure lab. The risks and benefits of the procedure as well as a full description of our services here and current unavailability of surgical backup were fully explained to the patient and/or their significant other prior to the catheterization. The Timeout was completed, verifying the correct patient and procedure. The patient's procedural site was prepped and draped in the usual fashion. Local anesthetic was given subcutaneously to right radial region with Lidocaine 2%. Using a modified Seldinger technique, arterial access was obtained via the right radial artery, a 6Fr sheath was inserted. Right Coronary Artery selective angiography was then performed in multiple views using a 5 Fr. 4.0 Kensal catheter. Left Coronary Artery selective angiography was performed in multiple views using a 5 Fr. 4.0 Kensal catheter.The arterial sheath was pulled and a TR Band was applied for hemostasis. 10cc of air CORONARY ANGIOGRAPHY DOMINANCE: Right Dominant LEFT HEART ASSESSMENT Left Ventricular Ejection Fraction: by Echo 45 % Anterior Hypokinesis - Mild LEFT MAIN: Angiographically normal LEFT ANTERIOR DESCENDING ARTERY: MID LAD: 60-70 % Stenosis CIRCUMFLEX ARTERY: No significant disease noted RIGHT CORONARY ARTERY: No significant disease noted COMPLICATIONS No Complications PROCEDURE MEDICATIONS Oxygen: 2 L/min via nasal cannula Heparin given IA 05/14/2022 07:41:26 SUMMARY OF HEMODYNAMIC DATA Time AIR REST ECG 07:20:22 AO 122/39 (67) SA 07:42:04 Signed By Jeremias Howard MD On 05/14/2022 08:00:21 Jeremias Howard MD
[2022-05-14] MEDS: Potassium Chloride Oral Soln 20 MEQ/15 ML UDC 40 MEQ PO (10:24)
[2022-05-14] MEDS: Pantoprazole Sodium 40 MG Tablet PO (10:24)
--- NOTE | 2022-05-14 17:33 | PCM.HOSP.N ---
Hospitalist Note Is given the number for the patient's Sister, Terell. Her number is [phone]. Asked her if she would be a next of kin. She informed me that she would be as his children are currently estranged. Explained his case with her regards to his ischemic leg, bleeding as well as his poor performance status. Told her under the Becks best of circumstances that I am concerned is prognosis would be months but right now given his current situation that it may be even less even weeks. I recommended hospice and she was in agreement with that. All questions were answered. Patient will not be made hospice. Labs and testing will be discontinued. Medications prioritized to comfort treatments. Hospice will be consulted. Greater than 20minutes spent in advance care planning discussions with the patient Sister as well as the patient significant other. Procedures Hospitalists Procedures: 66270 Advncd Care Plan 30 Min
[2022-05-14] MEDS: LORazepam 2 MG/ML Bottle 0.5 MG SL (18:51)
--- NOTE | 2022-05-14 19:21 | CPS ---
pt tried multiple time to take aero mask off-was very agitated
[2022-05-14] MEDS: Sertraline 50 MG Tablet PO (22:55)
[2022-05-14] MEDS: Menthol/Lanolin/Calamine/Znox 113 GM Tube 1 APPLIC TOPICAL (22:56)
[2022-05-15] VITALS (7 sets, daily range): BP systolic 128–154; BP diastolic 46–55; PULSE 59–77; RESP 16–20; TEMP 36.3–37.1; O2SAT 96–99; BMI 17.4
[2022-05-15] MEDS: LORazepam 2 MG/ML Bottle 0.5 MG SL (03:36)
[2022-05-15] MEDS: Ipratropium/Albuterol Sulfate 3 ML AMPUL.NEB INHALATION (06:52)
--- NOTE | 2022-05-15 07:50 | PN.HOSP_ITS ---
Subjective Subjective Still confused. Objective Data Objective Data Vital Signs: Vital Signs Temp Pulse Resp BP Pulse Ox O2 Del Method O2 Flow Rate 36.3 C L 59 L 20 H 139/52 H 97 Nasal Cannula 2 05/15/22 06:15 05/15/22 06:52 05/15/22 06:52 05/15/22 06:15 05/15/22 06:52 05/15/22 06:52 05/15/22 06:52 Oxygen Flow Rate (L/min) 2 Oxygen Delivery Method Nasal Cannula Weight: 50.349 kg Body Mass Index (BMI) 17.4 Intake & Output: Intake and Output for Last 24 Hours 05/13/22 05/14/22 05/15/22 23:59 23:59 23:59 Intake Total 540 / 840 420 / 420 Output Total 1460 / 1735 275 / 275 Balance -920 / -895 145 / 145 Medical Nutrition Assessment Dietitian: Malnutrition Criteria Met Start: 05/11/22 11:43 Freq: Status: Active Protocol: Document 05/14/22 14:37 RMA (Rec: 05/14/22 14:37 RMA [id number]) Nutrition Malnutrition Evidence of Malnutrition Exists Yes Malnutrition (severe): Chronic Evidenced By Suboptimal Energy Intake ( Severe),Weight Loss (Moderate) ,Physical Changes (Severe) Clinical Problem Chronic Disease or Condition Related Malnutrition Etiology severe, chronic malnutrition related to inadequate energy intake d/t living/social situation, impaired dentition/ edentulous state Signs/Symptoms as evidenced by refusal of meals while admitted, estimated PO intake meeting < 75% of estimated energy needs > 3 months; severe muscle wasting/fat loss evident in orbital, temporal, clavicle, acromion, and scapular areas; BMI 17.4 Status Active Problem Recommendation Dietitian Recommendations/Changes Will continue liberalized regular diet; with fortified foods as able. Will continue Chocolate milk w / meals, magic cup w/ lunch and dinner for additional calories/protein if consumed. May need to consider enteral nutrition support if patient continues with weight decline and refusal of meals. Weight trends as available; continued weight loss suspected with refusal of meals. Lab / Micro Data Result Diagrams: 05/14/22 05:15 05/14/22 05:15 Micro: Microbiology 05/10/22 14:10 Nasal Secretion SARS-CoV-2 Antigen (Rapid) - Final Physical Exam Const Constitutional Narrative: Confused. Short shallow breathing. Distant stare. Resp Resp Narrative: Coarse breath sounds Cardio regular rate, regular rhythm, S1 normal heart sound and S2 normal heart sound GI normal to inspection, nondistended, normoactive bowel sounds and soft to palpation Extremity Extremity Narrative: Muscle wasting. Cyanosis and mottling of the left lower extremity with opening wounds on his lin. Assessment & Plan Assessment/Plan (1) HFrEF (heart failure with reduced ejection fraction): PLAN: Acute exacerbation EF 60% on echo from 03/26/19, now down to 40-45% (2) PAD (peripheral artery disease): PLAN: CTA A/P: There is occlusion of the left superficial femoral artery at its origin. Occluded left tibioperoneal trunk, left anterior tibial artery, left posterior tibial artery and left peroneal artery: 50 % stenosis at the origin of the left renal artery. Vascular consult: pt is not a candidate for repeat revascularization. Will need cardiac clearance. Stress test today. CHEMO Workman, who will see in consultation. Patient with ischemic pain we will try to optimize pain medication but patient advised that may need to limit based on how his blood pressure is. (3) GI bleed: PLAN: Saw GI earlier this month and declined endoscopy earlier this month. Hold anticoagulation and antiplatelets Holding off on endoscopy given worsening clinical status (4) Atrial fibrillation with RVR: PLAN: stable metoprolol stopped as pt now hospice (5) Elevated troponin: PLAN: maybe type II event troponins trending down repeat stress when stable cath with 60-70% stenosis of LAD. CHEMO Howard. Medical Mgmt (6) Failure to thrive: PLAN: Due to patient's life decisions and refusal to follow with instructions and leave AGAINST MEDICAL ADVICE. I had a very long conversation with the pa steve and emphasized that he ultimately makes the decisions and if he does not want our help then that is his decision and then if that is the case then I would recommend hospice for him. He states that he does not want medical treatment, including an amputation and what ever testing would need to be done beforehand. I told him that he is unlikely to go to an assisted living after all of this is said and done given all the changes that could occur, including an amputation. He would require therapy and medical treatment to be more medically optimized to go to an assisted living. Once again emphasized that he does not have to do any this and emphasized that we are here to try to help him but he would need to help himself in leaving AGAINST MEDICAL ADVICE would not be helping his situation again. (7) Protein calorie malnutrition: PLAN: Nutrition consulted and recommending continue with regular diet and fortified food as able. Check milk with meals, Magic cup with lunch and dinner Complicates care and recovery PLAN: Plan Chronic conditions * chronic obstructive pulmonary disease-patient will be placed on DuoNeb aerosols, patient states he is still smoking * past history of left lower lobe lung cancer-there is an abnormal area on the patient's chest x-ray over the left lower lung field, I do not think this is a pneumonia, this may be where the patient previously had lung cancer. * hypothyroidism-patient is on Synthroid, it is unknown if he is compliant with this. VTE prophylaxis with SCDs. Pt had deteriorated on 05/14. DW pt's sister, Terell, who is his next of kin. Agreeable to hospice. Patient to go to hospice. Life expectancy is days to weeks.
--- NOTE | 2022-05-15 09:02 | CASEMGMT ---
Addendum entered by Dhara Means 05/15/22 09:41: 9:13a Eileen from Hospice called SAMIR. They will be meeting with patient's sister, Becki at Hospice today between 11 and noon. Eileen will send TISH Stewart to evaluate patient for their inpatient unit. Dhara EM Original Note: SAMIR called Eileen at [facility]. Eileen did receive the referral. They will be reaching out to patient's sister this am. Eileen will send TISH Stewart to [facility] to evaluate patient for Hospice inpatient unit. Dhara EM
--- NOTE | 2022-05-15 09:33 | CASEMGMT ---
SAMIR called Becki, patient's sister. SAMIR asked Becki if she knows any contact information for patient's children. Becki does not have their information. Becki said patient is estranged from his children. Becki did say a family friend was going to notify patient's daughter who will then notify patient's two sons. SAMIR also called patient's significant other Reyna. SAMIR asked Reyna if she had any contact information for patient's children and she did not. Dhara Means [employer] MANAV
[2022-05-15] MEDS: Menthol/Lanolin/Calamine/Znox 113 GM Tube 1 APPLIC TOPICAL (10:22)
[2022-05-15] MEDS: morphine (oral solution) 10MG/0.5ML Syringe 10 MG SL/PO (11:41)
--- NOTE | 2022-05-15 11:45 | NURSING ---
1130-Pat RN from hospice here to evaluate patient. Report given to Pat WINSTON, who stated no need to call report to [facility] as she will do it; she also requested that IV stay in. Hospice transport will be here to pick pt up at 1300.
--- NOTE | 2022-05-15 12:11 | PCM.DC ---
Discharge Instructions Diet Discharge Diet: No restrictions Follow Up Care Test Results: Test results from this visit will be discussed in further detail at your follow-up appointment, if applicable. Discharge Plan Admission Admit Date/Time: 05/10/22 17:20 Primary Reason for Your Visit: Ischemic leg. Attending Provider: Bhupinder Charles Primary Care Provider: Pedro Jaime Consulting Providers: Wilson Carrion ; German Workman ; Bhupinder Townsend ; Amaya Macias ; Edwin Wyman ; Margie Hirsch ; Carolyn Thomas ; Karen Lopez HUMANITIES INSTRUCTOR Discharge Orders/Prescriptions Prescriptions: New lorazepam 2 mg/mL Concentrate 0.5 mg sublingual Q4H PRN PRN (Reason: anxiety) Qty: 0 0RF morphine concentrate 10 mg/0.5 mL Syringe 10 mg PO/SL Q2H PRN PRN (Reason: Pain Score 6-10) 3 Days Qty: 0 0RF Discontinued nitroglycerin 0.4 mg tablet, sublingual 0.4 mg SUBLINGUAL Q5-15M PRN (Reason: chest pain) Qty: 25 Label Comments: DISSOLVE 1 TABLET UNDER THE TONGUE NEEDED FOR CHEST PAIN- MAY REPEAT EVERY 5 MINUTES IF NEEDED ( MAX 3 DOSES.- IF NO RELIEF CALL 911) albuterol sulfate 1 INHALER inhaler 1 puff inhalation Q4H PRN PRN (Reason: Asthma) zolpidem 5 mg Tablet 5 mg PO QHS PRN (Reason: Insomnia) Atrovent HFA 17 mcg/actuation HFA aerosol inhaler 2 puff INHALATION DAILY Label Comments: Inhale 2 Puffs as instructed four times daily as needed. budesonide-formoterol [Symbicort] 80-4.5 mcg/actuation HFA aerosol inhaler 2 puff INHALATION BID Label Comments: Inhale 2 Puffs as instructed twice daily. metoprolol succinate 25 mg tablet extended release 24 hr 25 mg PO DAILY Label Comments: TAKE 1 TABLET BY MOUTH DAILY levothyroxine 25 mcg tablet 25 mcg PO DAILY pantoprazole [Protonix] 40 mg tablet,delayed release (DR/EC) 40 mg PO DAILY potassium chloride 20 mEq tablet extended release 20 meq PO BID sumatriptan succinate 25 mg tablet 25 mg PO DAILY PRN (Reason: Migraine Headache) Label Comments: Take 1 tablet by mouth as needed for migraine headache (see administration instructions). Repeat once in 2 hours if needed. Rx Instructions: may repeat once in 2 hours if needed sertraline 50 mg tablet 50 mg PO DAILY Label Comments: TAKE 1 TABLET BY MOUTH DAILY Referrals / Follow Up: Pedro Jaime MD [Primary Care Provider] - Disposition Disposition (needs filled in before D/C Order can be placed): Hospice in Medical Facility
--- NOTE | 2022-05-15 12:15 | DS.PCM_ITS ---
Providers Date of Admission: 05/10/22 Primary Care Physician: Dr. Pedro Jaime MD Consultations 05/11/22 00:22 Consult: Vascular Surgery Routine Consulting Provider: Bhupinder Townsend Reason for Consult: Leg ischemia EMERGENT Consult: No MD Notified: Yes Date Notified: 05/11/22 Time Notified: 00:23 Method of Notification: Text 05/11/22 12:41 Consult: Gastroenterology Routine Consulting Provider: [facility] Reason for Consult: GI bleed EMERGENT Consult: No MD Notified: Yes Date Notified: 05/11/22 Time Notified: 12:41 Method of Notification: Answering Service 05/12/22 08:27 Consult: Cardiology Routine Consulting Provider: German Workman Reason for Consult: CHF, cardiac clearance EMERGENT Consult: No MD Notified: Yes Date Notified: 05/12/22 Time Notified: 08:27 Method of Notification: Verbal 05/14/22 17:33 Consult: Hospice / Palliative Care Routine Consulting Provider: [facility] Reason for Consult: hospice EMERGENT Consult: No Notified: Yes Date Notified: 05/14/22 Time Notified: 17:33 Method of Notification: Verbal Reason For Visit: CHEST PAIN Diagnosis Discharge Diagnosis (1) HFrEF (heart failure with reduced ejection fraction): Status: Acute Code(s): I50.20 - Unspecified systolic (congestive) heart failure Plan: Acute exacerbation EF 60% on echo from 03/26/19, now down to 40-45% (2) PAD (peripheral artery disease): Status: Acute Code(s): I73.9 - Peripheral vascular disease, unspecified Plan: CTA A/P: There is occlusion of the left superficial femoral artery at its origin. Occluded left tibioperoneal trunk, left anterior tibial artery, left posterior tibial artery and left peroneal artery: 50 % stenosis at the origin of the left renal artery. Vascular consult: pt is not a candidate for repeat revascularization. Will need cardiac clearance. Stress test today. CHEMO Workman, who will see in consultation. Patient with ischemic pain we will try to optimize pain medication but patient advised that may need to limit based on how his blood pressure is. (3) GI bleed: Status: Acute Code(s): K92.2 - Gastrointestinal hemorrhage, unspecified Plan: Saw GI earlier this month and declined endoscopy earlier this month. Hold anticoagulation and antiplatelets Holding off on endoscopy given worsening clinical status (4) Atrial fibrillation with RVR: Status: Acute Code(s): I48.91 - Unspecified atrial fibrillation Plan: stable metoprolol stopped as pt now hospice (5) Elevated troponin: Status: Acute Code(s): R77.8 - Other specified abnormalities of plasma proteins Plan: maybe type II event troponins trending down repeat stress when stable cath with 60-70% stenosis of LAD. DW Dr. Howard. Medical Mgmt (6) Failure to thrive: Status: Acute Plan: Due to patient's life decisions and refusal to follow with instructions and leave AGAINST MEDICAL ADVICE. I had a very long conversation with the patient and emphasized that he ultimately makes the decisions and if he does not want our help then that is his decision and then if that is the case then I would recommend hospice for him. He states that he does not want medical treatment, including an amputation and what ever testing would need to be done beforehand. I told him that he is unlikely to go to an assisted living after all of this is said and done given all the changes that could occur, including an amputation. He would require therapy and medical treatment to be more medically optimized to go to an assisted living. Once again emphasized that he does not have to do any this and emphasized that we are here to try to help him but he would need to help himself in leaving AGAINST MEDICAL ADVICE would not be helping his situation again. (7) Protein calorie malnutrition: Status: Acute Code(s): E46 - Unspecified protein-calorie malnutrition Plan: Nutrition consulted and recommending continue with regular diet and fortified food as able. Check milk with meals, Magic cup with lunch and dinner Complicates care and recovery Plan Chronic conditions * chronic obstructive pulmonary disease-patient will be placed on DuoNeb aerosols, patient states he is still smoking * past history of left lower lobe lung cancer-there is an abnormal area on the patient's chest x-ray over the left lower lung field, I do not think this is a pneumonia, this may be where the patient previously had lung cancer. * hypothyroidism-patient is on Synthroid, it is unknown if he is compliant with this. VTE prophylaxis with SCDs. Pt had deteriorated on 05/14. DW pt's sister, Terell, who is his next of kin. Agreeable to hospice. Patient to go to hospice. Life expectancy is days to weeks. Medications at Discharge Home Medications lorazepam 2 mg/mL oral concentrate 0.5 mg (0.25 mL) sublingual Q4H PRN PRN anxiety #0 mL 05/15/22 morphine concentrate 10 mg/0.5 mL oral syringe (FOR ORAL USE ONLY) 10 mg (0.5 mL) PO/SL Q2H PRN PRN Pain Score 6-10 3 days #0 ea 05/15/22 Hospital Course Procedures Cardiac catheterization and EGD Summary of Care Provided Minutes Spent on Discharge: 28 Medical Records Data Medical Nutrition Assessment Dietitian: Malnutrition Criteria Met Start: 05/11/22 11:43 Freq: Status: Active Protocol: Document 05/14/22 14:37 RMA (Rec: 05/14/22 14:37 RMA [id number]) Nutrition Malnutrition Evidence of Malnutrition Exists Yes Malnutrition (severe): Chronic Evidenced By Suboptimal Energy Intake ( Severe),Weight Loss (Moderate) ,Physical Changes (Severe) Clinical Problem Chronic Disease or Condition Related Malnutrition Etiology severe, chronic malnutrition related to inadequate energy intake d/t living/social situation, impaired dentition/ edentulous state Signs/Symptoms as evidenced by refusal of meals while admitted, estimated PO intake meeting < 75% of estimated energy needs > 3 months; severe muscle wasting/fat loss evident in orbital, temporal, clavicle, acromion, and scapular areas; BMI 17.4 Status Active Problem Recommendation Dietitian Recommendations/Changes Will continue liberalized regular diet; with fortified foods as able. Will continue Chocolate milk w / meals, magic cup w/ lunch and dinner for additional calories/protein if consumed. May need to consider enteral nutrition support if patient continues with weight decline and refusal of meals. Weight trends as available; continued weight loss suspected with refusal of meals. Weight / BMI Weight Weight: 50.349 kg Body Mass Index (BMI) 17.4 ABG / Lab / Microbiology Data Result Diagrams: 05/14/22 05:15 05/14/22 05:15 Microbiology: Microbiology 05/10/22 14:10 Nasal Secretion SARS-CoV-2 Antigen (Rapid) - Final D/C Instructions Discharge Diet: No restrictions Meaningful Use Info Meaningful Use Diagnoses (Choose all that apply): AMI and CHF AMI/Post PCI/Angioplasty Aspirin given w/in 24hrs of arrival?: Yes ASA at discharge?: No Reason ASA not ordered:: Allergy (hospice) Antiplatelet Therapy at Discharge:: No Reason Antiplatelet Therapy not ordered:: Allergy (hospice) Statins at discharge?: No Reason statins not ordered:: Allergy (hospice) Onofre/ARB at discharge?: No Reason Onofre/ARB not ordered:: Allergy (hospice) Beta Mary at discharge?: No Reason Beta Mary not ordered:: Allergy (hospice) Done w/ Acute ME measure.: Yes Documented LVEF (%): 40 CHF ONOFRE/ARB ordered at discharge?: No Reason ONOFRE/ARB not ordered?: Allergy (hospice) Documented LVEF (%): 40 Discharge Plan Admission Admit Date/Time: 05/10/22 17:20 Primary Reason for Your Visit: Ischemic leg. Attending Provider: Bhupinder Charles Primary Care Provider: Pedro Jaime Consulting Providers: Wilson Carrion ; German Workman ; Bhupinder Townsend ; Amaya Macias ; Edwin Wyman ; Margie Hirsch ; Carolyn Thomas ; Karen Lopez MANAGER ROUTE Discharge Orders/Prescriptions Prescriptions: New lorazepam 2 mg/mL Concentrate 0.5 mg sublingual Q4H PRN PRN (Reason: anxiety) Qty: 0 0RF morphine concentrate 10 mg/0.5 mL Syringe 10 mg PO/SL Q2H PRN PRN (Reason: Pain Score 6-10) 3 Days Qty: 0 0RF Discontinued nitroglycerin 0.4 mg tablet, sublingual 0.4 mg SUBLINGUAL Q5-15M PRN (Reason: chest pain) Qty: 25 Label Comments: DISSOLVE 1 TABLET UNDER THE TONGUE NEEDED FOR CHEST PAIN- MAY REPEAT EVERY 5 MINUTES IF NEEDED ( MAX 3 DOSES.- IF NO RELIEF CALL 911) albuterol sulfate 1 INHALER inhaler 1 puff inhalation Q4H PRN PRN (Reason: Asthma) zolpidem 5 mg Tablet 5 mg PO QHS PRN (Reason: Insomnia) Atrovent HFA 17 mcg/actuation HFA aerosol inhaler 2 puff INHALATION DAILY Label Comments: Inhale 2 Puffs as instructed four times daily as needed. budesonide-formoterol [Symbicort] 80-4.5 mcg/actuation HFA aerosol inhaler 2 puff INHALATION BID Label Comments: Inhale 2 Puffs as instructed twice daily. metoprolol succinate 25 mg tablet extended release 24 hr 25 mg PO DAILY Label Comments: TAKE 1 TABLET BY MOUTH DAILY levothyroxine 25 mcg tablet 25 mcg PO DAILY pantoprazole [Protonix] 40 mg tablet,delayed release (DR/EC) 40 mg PO DAILY potassium chloride 20 mEq tablet extended release 20 meq PO BID sumatriptan succinate 25 mg tablet 25 mg PO DAILY PRN (Reason: Migraine Headache) Label Comments: Take 1 tablet by mouth as needed for migraine headache (see administration instructions). Repeat once in 2 hours if needed. Rx Instructions: may repeat once in 2 hours if needed sertraline 50 mg tablet 50 mg PO DAILY Label Comments: TAKE 1 TABLET BY MOUTH DAILY Referrals / Follow Up: Pedro Jaime MD [Primary Care Provider] - Disposition Disposition (needs filled in before D/C Order can be placed): Hospice in Medical Facility Charges/Coding Visit Charges Inpatient E&M: 66764 Disch Hosp
--- NOTE | 2022-05-15 13:14 | PHA.DC.MR ---
Pharmacy Service has performed discharge medication reconciliation for this patient. The patient's discharge medication list was reviewed for discrepancies and discrepancies were resolved. Home Medications lorazepam 2 mg/mL oral concentrate 0.5 mg (0.25 mL) sublingual Q4H PRN PRN anxiety #0 mL 05/15/22 morphine concentrate 10 mg/0.5 mL oral syringe (FOR ORAL USE ONLY) 10 mg (0.5 mL) PO/SL Q2H PRN PRN Pain Score 6-10 3 days #0 ea 05/15/22
--- NOTE | 2022-05-15 13:54 | CASEMGMT ---
SW called [facility] coverage line and let them know that patient was discharged to the inpatient Hospice unit today. They will get the message to Tete, patient's caser up. Dhara [employer]NA[employer]
== END 2022-05-15 13:16 | disposition hospice, inpatient (51) | DRG 280 ==
LOC: ED 15:59 → PCU 19:10
PROVIDERS: Hospitalist; Admitting Provider Internal Medicine; Emergency Provider Emergency Medicine; PCP Internal Medicine
DX: I11.0 Hypertensive heart disease with heart failure (principal); I21.A1 Myocardial infarction type 2; E43 Unspecified severe protein-calorie malnutrition; J18.9 Pneumonia, unspecified organism; I50.23 Acute on chronic systolic (congestive) heart failure; J44.0 Chronic obstructive pulmonary disease with (acute) lower respiratory infection; K92.2 Gastrointestinal hemorrhage, unspecified; Z89.612 Acquired absence of left leg above knee; I48.91 Unspecified atrial fibrillation; I70.212 Atherosclerosis of native arteries of extremities with intermittent claudication, left leg; I70.1 Atherosclerosis of renal artery; E87.6 Hypokalemia; F17.210 Nicotine dependence, cigarettes, uncomplicated; E03.9 Hypothyroidism, unspecified; K57.30 Diverticulosis of large intestine without perforation or abscess without bleeding; K80.20 Calculus of gallbladder without cholecystitis without obstruction; F10.10 Alcohol abuse, uncomplicated; R09.02 Hypoxemia; Z79.51 Long term (current) use of inhaled steroids; D18.00 Hemangioma unspecified site; R62.7 Adult failure to thrive; R77.8 Other specified abnormalities of plasma proteins; Z85.118 Personal history of other malignant neoplasm of bronchus and lung
CPT/HCPCS: 36415; 70450; 71045; 71275; 75635; 78452; 80048; 80053; 82077; 82140; 83605; 83735; 83880; 84484; 85025; 85610; 85730; 87040; 87811; 93005; 93017; 93306; 93454; 93970; 94640; 96365; 96366; 97110; 97162; 97165; 97530; 97535; 97802; 99251; 99285; 99406; A9500; J7030; Q9967; A4216; C1769; C1894; G0463; J1940; J2405; J2785